=== PATIENT | female | born 1990 | race Caucasian/White ===

== ENCOUNTER 2017-11-15 10:19 | Outpatient (CLI) | payer OTHER, MEDICAID, SELFPAY ==
--- NOTE | 2017-11-15 10:58 | P.TNLD_ITS ---
Visit Information Visit Information Date of evaluation: 11/15/17 On-call OB Provider: Kelly Amanda Reason for Evaluation: Yes other Comments/Additional reasons for admission: decreased movement Evaluation Evaluation Baseline heart rate: 140 Variability: Moderate (11-25) monitor accelerations: Present monitor decelerations: Absent Diagnosis, Plan/Disposition Final Diagnosis (1) Decreased movement: Current Visit: Yes Status: Acute Plan/Disposition Plan: Reactive NST today, with 10x10 accels based on gestational age. Pt reassured. Instructed on kick counts. Pt to f/u with primary OB through [facility]. OB Disposition: home
== END 2017-11-15 11:11 | disposition home or self-care (01) ==
LOC: OB 11-16 14:13
PROVIDERS: PCP Family Medicine; Visit Provider Family Medicine
DX: O36.8130 Decreased fetal movements, third trimester, not applicable or unspecified (principal); Z3A.30 30 weeks gestation of pregnancy
CPT/HCPCS: 59025; G0378; G0379

== ENCOUNTER 2018-01-26 15:18 | Emergency (ER) | payer OTHER, MEDICAID, SELFPAY ==
[2018-01-26 15:21] VITALS: BP 137/87; PULSE 84; RESP 15; TEMP 37.3; O2SAT 98; BMI 32.5
[2018-01-26 15:49] LABS: Bacteria Urine None Seen
[2018-01-26 16:01] LABS: Culture Indicated Urine Cult Not Indicated; RBC Urine 0-1/HPF (0-5/HPF); Squamous Epithelial Cell Urine 0-1 /HPF; WBC Urine 0-1/HPF (0-5/HPF)
--- NOTE | 2018-01-26 16:49 | DI.US.S_ITS ---
PROCEDURE: US ABDOMEN LIMITED INDICATIONS: lower abd pain, concern about C section incision TECHNIQUE: Real-time focused scanning was performed of the abdomen, with image documentation. COMPARISON: [facility], CR, XR ABDOMEN 1 VIEW, 01/17/2018, 15:59. FINDINGS: Reportedly there is a painful lump at the left margin of the scar. There is a heterogeneous hypoechoic finding at this site measuring 8 x 6 x 13 mm without internal blood flow with an appearance most likely a small hematoma. Focal tenderness is identified at the right lateral margin of the scar without underlying hematoma. IMPRESSION: Small presumed hematoma measuring 8 x 6 x 13 mm at the left lateral margin of the scar. Tenderness at the right lateral margin, without focal hematoma associated. No visceral herniation into the subcutaneous fat is found. Dictated by: Tomer Gutierrez M.D. on 01/26/2018 at 18:02 Approved by: Tomer Gutierrez M.D. on 01/26/2018 at 18:04
[2018-01-26 17:14] LABS: Add Manual Diff / Slide Review NO; Basophils Percent Auto 1.1 % (0-2); Eosinophils Percent Auto 3.6 % (2-4); Hematocrit 33.1 % (36-46); Hemoglobin 11.5 g/dL (12.0-16.0); Lymphocytes Percent Auto 34.3 % (25-40); Mean Corpuscular HGB Conc 34.7 % (30-36); Mean Corpuscular Hemoglobin 31.5 PG (26-34); Mean Corpuscular Volume 90.6 fL (80-100); Monocytes Percent Auto 5.1 % (3-14); Neutrophils Absolute Auto 5000 /uL (3000-5900); Neutrophils Percent Auto 55.9 % (50-75); Platelet Count 407 X10^3/uL (150-400); Red Blood Cell Count 3.65 X10^6/uL (4.0-5.2); Red Cell Distribution Width 14.1 % (11.6-14.8)
[2018-01-26 17:25] LABS: Alanine Aminotransferase 39 IU/L (9-52); Albumin 3.8 g/dL (3.5-5.0); Albumin Globulin Ratio 1.5 (1.0-2.8); Alkaline Phosphatase 89 U/L (38-126); Aspartate Aminotransferase 35 IU/L (14-36); BUN Creatinine Ratio 16.7 (6-22); Bilirubin Total 0.2 mg/dL (0.2-1.3); Blood Urea Nitrogen 15 mg/dL (7-17); Calcium 8.9 mg/dL (8.4-10.2); Carbon Dioxide 30 mmol/L (22-32); Chloride 103 mmol/L (98-107); Estimated Glomerular Filt Rate > 60.0 mL/min (>60); Globulin 2.6 g/dL (1.7-4.1); Glucose 92 mg/dL (70-100); HEMOLYSIS < 15 (0-50); Potassium 3.8 mmol/L (3.4-5.1); Sodium 143 mmol/L (137-145); Total Protein 6.4 g/dL (6.3-8.2)
--- NOTE | 2018-01-26 17:33 | ED.FEMALEGU ---
HPI - Female Genitourinary <HARISH Zhou-BC - Last Filed: 01/26/18 22:10> General Chief complaint: Urogenital-Female Stated complaint: RED HOT SPOT S/P Time Seen by Provider: 01/26/18 16:25 Source: patient Mode of arrival: ambulatory Limitations: no limitations History of Present Illness HPI Narrative: The patient presents approximately 1 week after . She states she had an emergency at [facility]. She denies any fevers but complains of chills. She denies any nausea or vomiting. She complains of lower abdominal cramping and pain. She wanted she has a UTI given dysuria urgency frequency. She states she can feel a swollen bump at her surgery incision on her left side. She had knowledge is that she has not taken easy after surgery. She does note that she was seen at [facility]. She does state that she does not want to follow up with her OB at [facility]. She states that she did does not have any vaginal discharge but feels like the ?whole area is burning.? Patient states recent STIs testing showed nothing. Of note her baby was delivered, flown to [place] then then . Related Data Home Medications Medication Instructions Recorded Confirmed ibuprofen 1 tab PO TID PRN 01/26/18 01/26/18 oxycodone-acetaminophen 1 tab PO Q4H PRN 01/26/18 01/26/18 Allergies Allergy/AdvReac Type Severity Reaction Status Date / Time No Known Drug Allergies Allergy Verified 01/26/18 15:21 Review of Systems <SORAIDA Zhou - Last Filed: 01/26/18 22:10> Review of Systems GENERAL: Denies chills, fatigue, malaise, fever, sweats. HEENT: Denies sinus pain, ear pain, sore throat, difficulty swallowing, dizziness. RESPIRATORY: Denies dyspnea, cough, wheezing, hemoptysis, sputum. CARDIOVASCULAR: Denies chest pain, palpitations, orthopnea, edema, GASTROINTESTINAL: Denies nausea, vomiting, abdominal pain, diarrhea, constipation, melena. : See HPI MUSCULOSKELETAL: denies weakness, joint pain, or bony pain SKIN: See HPI NEUROLOGIC: Denies weakness, headache, numbness, change in speech, confusion, seizures, incoordination. PSYCHIATRIC: No concerning psychosocial issues. 12 point review of systems is negative except for those stated above Exam <SORAIDA Zhou - Last Filed: 01/26/18 22:10> Narrative Exam Narrative: GENERAL: This is a well-nourished, well-developed patient, lying on stretcher HEAD: Atraumatic. Normocephalic. No temporal or scalp tenderness. EYES: Pupils equal round and reactive. Extraocular motions intact. No scleral icterus. No injection or drainage. ENT: Nose without bleeding, purulent drainage or septal hematoma. Throat without erythema, tonsillar hypertrophy or exudate. Uvula midline. Airway patent. NECK: Trachea midline. No JVD or lymphadenopathy. Supple, nontender, no meningeal signs. CARDIOVASCULAR: Regular rate and rhythm without murmurs, gallops, or rubs. RESPIRATORY: Clear to auscultation. Breath sounds equal bilaterally. No wheezes, rales, or rhonchi. GASTROINTESTINAL: Abdomen soft, diffusely tender to palpation. Uterus palpable distal to umbilicus. Active bowel sounds all 4 quadrants. No guarding noted. No pain at McBurney's point. Palpable mass beneath left aspect of section incision. EXTREMITIES: No clubbing, cyanosis, or edema. No joint tenderness, effusion, or edema noted. BACK: Nontender without deformity or crepitance. No flank tenderness. NEURO: AOx3. SKIN: section incision is clean, dry, intact with no erythema or exudate. Incision is well approximated. Initial Vital Signs Initial Vital Signs: Vital Signs Temperature 99.2 F 01/26/18 15:21 Pulse Rate 84 01/26/18 15:21 Respiratory Rate 15 01/26/18 15:21 Blood Pressure 137/87 01/26/18 15:21 Pulse Oximetry 98 01/26/18 15:21 <Marty Tanner DO - Last Filed: 01/26/18 23:31> Initial Vital Signs Initial Vital Signs: Vital Signs Temperature 99.2 F 01/26/18 15:21 Pulse Rate 84 01/26/18 15:21 Respiratory Rate 15 01/26/18 15:21 Blood Pressure 137/87 01/26/18 15:21 Pulse Oximetry 98 01/26/18 15:21 Course <SORAIDA Zhou - Last Filed: 01/26/18 22:10> Course Narrative: I checked on the patient several times throughout her stay in the emergency department. Orders Ordered: ED Orders 01/26/18 15:26 Urine Microscopic Stat 01/26/18 16:49 US abdomen limited Stat 01/26/18 17:07 Complete Blood Count AUTO DIFF Stat Comprehensive Metabolic Panel Stat Vital Signs - 8 hr 01/26/18 18:51 Pulse Rate 78 Respiratory Rate 15 Blood Pressure 140/98 H Pulse Oximetry 98 <Marty Tanner DO - Last Filed: 01/26/18 23:31> Orders Ordered: ED Orders 01/26/18 15:26 Urine Microscopic Stat 01/26/18 16:49 US abdomen limited Stat 01/26/18 17:07 Complete Blood Count AUTO DIFF Stat Comprehensive Metabolic Panel Stat Vital Signs - 8 hr 01/26/18 18:51 Pulse Rate 78 Respiratory Rate 15 Blood Pressure 140/98 H Pulse Oximetry 98 MDM - Female Genitourinary <HARISH Zhou- - Last Filed: 01/26/18 22:10> Lab Data Attestation: I reviewed the patient's lab results. Result diagrams: 01/26/18 17:07 01/26/18 17:07 Lab Results 01/26/18 01/26/18 01/26/18 Range/Units 15:26 17:07 17:07 WBC 9.0 (4.5-11.0) X10^3/uL RBC 3.65 L (4.0-5.2) X10^6/uL Hgb 11.5 L (12.0-16.0) g/dL Hct 33.1 L (36-46) % MCV 90.6 (80-100) fL MCH 31.5 (26-34) PG MCHC 34.7 (30-36) % RDW 14.1 (11.6-14.8) % Plt Count 407 H (150-400) X10^3/uL Neut % (Auto) 55.9 (50-75) % Lymph % (Auto) 34.3 (25-40) % [place] % (Auto) 5.1 (3-14) % Eos % (Auto) 3.6 (2-4) % Baso % (Auto) 1.1 (0-2) % Neut # (Auto) 5000 (9381-1943) /uL Sodium 143 (137-145) mmol/L Potassium 3.8 (3.4-5.1) mmol/L Chloride 103 (98-107) mmol/L Carbon Dioxide 30 (22-32) mmol/L BUN 15 (7-17) mg/dL Creatinine 0.90 (0.52-1.04) mg/dL Estimated GFR > 60.0 (>60) mL/min BUN/Creatinine Ratio 16.7 (6-22) Glucose 92 (70-100) mg/dL Calcium 8.9 (8.4-10.2) mg/dL Total Bilirubin 0.2 (0.2-1.3) mg/dL AST 35 (14-36) IU/L ALT 39 (9-52) IU/L Alkaline Phosphatase 89 (38-126) U/L Total Protein 6.4 (6.3-8.2) g/dL Albumin 3.8 (3.5-5.0) g/dL Globulin 2.6 (1.7-4.1) g/dL Albumin/Globulin Ratio 1.5 (1.0-2.8) Urine RBC 0-1/hpf (0-5/HPF) Urine WBC 0-1/hpf (0-5/HPF) Ur Squamous Epith Cells 0-1 /hpf Urine Bacteria None seen (None) Ur Culture Indicated? Cult not indicated Micro UA Comment Not Reportable Urine Dip Bedside Urine Glucose Negative Bedside Urine Bilirubin - Negative Bedside Urine Ketone - Negative Urine Specific [place] 1.020 Bedside Urine Occult Blood +/- Bedside Urine pH 6.5 Bedside Urine Protein - Negative Bedside Urine Urobilinogen - Negative Bedside Urine Nitrite - Negative Bedside Urine Leukocytes - Negative Esterase Imaging Data US - abdomen: Radiologist's impression: [place] [id number] Ultrasound Report Signed Patient: Rhiannon Linton [facility]#: [id number] : 1990Acct:[id number] Age/Sex: 27 / FDate of Service: 01/26/18 Loc: ED Accession Number: [id number] Procedure: US abdomen limited Ordering Provider: Marlene Jewell-BC PROCEDURE: US ABDOMEN LIMITED INDICATIONS: lower abd pain, concern about C section incision TECHNIQUE: Real-time focused scanning was performed of the abdomen, with image documentation. COMPARISON: [facility], CR, XR ABDOMEN 1 VIEW, 01/17/2018, 15:59. FINDINGS: Reportedly there is a painful lump at the left margin of the scar. There is a heterogeneous hypoechoic finding at this site measuring 8 x 6 x 13 mm without internal blood flow with an appearance most likely a small hematoma. Focal tenderness is identified at the right lateral margin of the scar without underlying hematoma. IMPRESSION: Small presumed hematoma measuring 8 x 6 x 13 mm at the left lateral margin of the scar. Tenderness at the right lateral margin, without focal hematoma associated. No visceral herniation into the subcutaneous fat is found. Dictated by: Tomer Gutierrez M.D. on 01/26/2018 at 18:02 Approved by: Tomer Gutierrez M.D. on 01/26/2018 at 18:04 [facility] Narrative Medical decision making narrative: Patient presented for concern of wound. Her vital signs were stable, her lab work was grossly normal no elevated white blood cell count. An ultrasound did show a probable hematoma. She is hemodynamically stable and has no elevated white blood cell count. Thus I encouraged her to follow up with primary care provider and she requests to go home. I offered a pelvic an STI testing, but she declined at this point time. I encouraged her to follow up in the next few days. Patient also states she will seek help for mental health if needed given that the of her daughter. She states this is not an issue at this point time, but she agreed to be evaluated if it becomes 1. <Marty Tanner, DO - Last Filed: 01/26/18 23:31> Lab Data Lab Results 01/26/18 01/26/18 01/26/18 Range/Units 15:26 17:07 17:07 WBC 9.0 (4.5-11.0) X10^3/uL RBC 3.65 L (4.0-5.2) X10^6/uL Hgb 11.5 L (12.0-16.0) g/dL Hct 33.1 L (36-46) % MCV 90.6 (80-100) fL MCH 31.5 (26-34) PG MCHC 34.7 (30-36) % RDW 14.1 (11.6-14.8) % Plt Count 407 H (150-400) X10^3/uL Neut % (Auto) 55.9 (50-75) % Lymph % (Auto) 34.3 (25-40) % [place] % (Auto) 5.1 (3-14) % Eos % (Auto) 3.6 (2-4) % Baso % (Auto) 1.1 (0-2) % Neut # (Auto) 5000 (2383-6171) /uL Sodium 143 (137-145) mmol/L Potassium 3.8 (3.4-5.1) mmol/L Chloride 103 (98-107) mmol/L Carbon Dioxide 30 (22-32) mmol/L BUN 15 (7-17) mg/dL Creatinine 0.90 (0.52-1.04) mg/dL Estimated GFR > 60.0 (>60) mL/min BUN/Creatinine Ratio 16.7 (6-22) Glucose 92 (70-100) mg/dL Calcium 8.9 (8.4-10.2) mg/dL Total Bilirubin 0.2 (0.2-1.3) mg/dL AST 35 (14-36) IU/L ALT 39 (9-52) IU/L Alkaline Phosphatase 89 (38-126) U/L Total Protein 6.4 (6.3-8.2) g/dL Albumin 3.8 (3.5-5.0) g/dL Globulin 2.6 (1.7-4.1) g/dL Albumin/Globulin Ratio 1.5 (1.0-2.8) Urine RBC 0-1/hpf (0-5/HPF) Urine WBC 0-1/hpf (0-5/HPF) Ur Squamous Epith Cells 0-1 /hpf Urine Bacteria None seen (None) Ur Culture Indicated? Cult not indicated Micro UA Comment Not Reportable Urine Dip Bedside Urine Glucose Negative Bedside Urine Bilirubin - Negative Bedside Urine Ketone - Negative Urine Specific [place] 1.020 Bedside Urine Occult Blood +/- Bedside Urine pH 6.5 Bedside Urine Protein - Negative Bedside Urine Urobilinogen - Negative Bedside Urine Nitrite - Negative Bedside Urine Leukocytes - Negative Esterase Discharge Plan Departure Patient Disposition: Home Clinical Impression: Encounter for postoperative wound check Discharge Date/Time: 01/26/18 18:51 Interventions: ED Discharge Assessment Last Done: 01/26/18 18:51 Instructions: How to Care for a Surgical Wound Activity Restrictions/Additional Instructions: The ultrasound today showed a hematoma underneath your scar. Please follow-up with your SLIP [employer]ESSER as we discussed. Please rest, do not lift anything heavier than 5-10 lb. You can use [id number] pain medications as needed as well as ice or heat. Otherwise her lab work came back grossly normal and your urine came back without any signs of infection. Please follow-up with your tire mechanic or come back to the emergency department if needed. Prescriptions: No Action ibuprofen 800 mg tablet 1 tab PO TID PRN (Reason: PAIN) RF: 0 oxycodone-acetaminophen 5-325 mg tablet 1 tab PO Q4H PRN (Reason: PAIN) RF: 0 Referrals: Marty Aguilar MD [Primary Care Provider] - <Marty Tanner DO - Last Filed: 01/26/18 23:31> [facility] ED Attending Tati Attestation: I was available for consultation during this patient's emergency department encounter
--- NOTE | 2018-01-26 17:36 | ED_ITS ---
HPI - Female Genitourinary <HARISH Zhou-BC - Last Filed: 01/26/18 22:10> General Chief complaint: Urogenital-Female Stated complaint: RED HOT SPOT S/P Time Seen by Provider: 01/26/18 16:25 Source: patient Mode of arrival: ambulatory Limitations: no limitations History of Present Illness HPI Narrative: The patient presents approximately 1 week after . She states she had an emergency at [facility]. She denies any fevers but complains of chills. She denies any nausea or vomiting. She complains of lower abdominal cramping and pain. She wanted she has a UTI given dysuria urgency frequency. She states she can feel a swollen bump at her surgery incision on her left side. She had knowledge is that she has not taken easy after surgery. She does note that she was seen at [facility]. She does state that she does not want to follow up with her OB at [facility]. She states that she did does not have any vaginal discharge but feels like the ?whole area is burning.? Patient states recent STIs testing showed nothing. Of note her baby was delivered, flown to [place] then then . Related Data Home Medications Medication Instructions Recorded Confirmed ibuprofen 1 tab PO TID PRN 01/26/18 01/26/18 oxycodone-acetaminophen 1 tab PO Q4H PRN 01/26/18 01/26/18 Allergies Allergy/AdvReac Type Severity Reaction Status Date / Time No Known Drug Allergies Allergy Verified 01/26/18 15:21 Review of Systems <SORAIDA Zhou - Last Filed: 01/26/18 22:10> Review of Systems GENERAL: Denies chills, fatigue, malaise, fever, sweats. HEENT: Denies sinus pain, ear pain, sore throat, difficulty swallowing, dizziness. RESPIRATORY: Denies dyspnea, cough, wheezing, hemoptysis, sputum. CARDIOVASCULAR: Denies chest pain, palpitations, orthopnea, edema, GASTROINTESTINAL: Denies nausea, vomiting, abdominal pain, diarrhea, constipation, melena. : See HPI MUSCULOSKELETAL: denies weakness, joint pain, or bony pain SKIN: See HPI NEUROLOGIC: Denies weakness, headache, numbness, change in speech, confusion, seizures, incoordination. PSYCHIATRIC: No concerning psychosocial issues. 12 point review of systems is negative except for those stated above Exam <SORAIDA Zhou - Last Filed: 01/26/18 22:10> Narrative Exam Narrative: GENERAL: This is a well-nourished, well-developed patient, lying on stretcher HEAD: Atraumatic. Normocephalic. No temporal or scalp tenderness. EYES: Pupils equal round and reactive. Extraocular motions intact. No scleral icterus. No injection or drainage. ENT: Nose without bleeding, purulent drainage or septal hematoma. Throat without erythema, tonsillar hypertrophy or exudate. Uvula midline. Airway patent. NECK: Trachea midline. No JVD or lymphadenopathy. Supple, nontender, no meningeal signs. CARDIOVASCULAR: Regular rate and rhythm without murmurs, gallops, or rubs. RESPIRATORY: Clear to auscultation. Breath sounds equal bilaterally. No wheezes , rales, or rhonchi. GASTROINTESTINAL: Abdomen soft, diffusely tender to palpation. Uterus palpable distal to umbilicus. Active bowel sounds all 4 quadrants. No guarding noted. No pain at McBurney's point. Palpable mass beneath left aspect of section incision. EXTREMITIES: No clubbing, cyanosis, or edema. No joint tenderness, effusion, or edema noted. BACK: Nontender without deformity or crepitance. No flank tenderness. NEURO: AOx3. SKIN: section incision is clean, dry, intact with no erythema or exudate. Incision is well approximated. Initial Vital Signs Initial Vital Signs: Vital Signs Temperature 99.2 F 01/26/18 15:21 Pulse Rate 84 01/26/18 15:21 Respiratory Rate 15 01/26/18 15:21 Blood Pressure 137/87 01/26/18 15:21 Pulse Oximetry 98 01/26/18 15:21 <Marty Tanner DO - Last Filed: 01/26/18 23:31> Initial Vital Signs Initial Vital Signs: Vital Signs Temperature 99.2 F 01/26/18 15:21 Pulse Rate 84 01/26/18 15:21 Respiratory Rate 15 01/26/18 15:21 Blood Pressure 137/87 01/26/18 15:21 Pulse Oximetry 98 01/26/18 15:21 Course <SORAIDA Zhou - Last Filed: 01/26/18 22:10> Course Narrative: I checked on the patient several times throughout her stay in the emergency department. Orders Ordered: ED Orders 01/26/18 15:26 Urine Microscopic Stat 01/26/18 16:49 US abdomen limited Stat 01/26/18 17:07 Complete Blood Count AUTO DIFF Stat Comprehensive Metabolic Panel Stat Vital Signs - 8 hr 01/26/18 18:51 Pulse Rate 78 Respiratory Rate 15 Blood Pressure 140/98 H Pulse Oximetry 98 <Marty Tanner DO - Last Filed: 01/26/18 23:31> Orders Ordered: ED Orders 01/26/18 15:26 Urine Microscopic Stat 01/26/18 16:49 US abdomen limited Stat 01/26/18 17:07 Complete Blood Count AUTO DIFF Stat Comprehensive Metabolic Panel Stat Vital Signs - 8 hr 01/26/18 18:51 Pulse Rate 78 Respiratory Rate 15 Blood Pressure 140/98 H Pulse Oximetry 98 MDM - Female Genitourinary <HARISH Zhou- - Last Filed: 01/26/18 22:10> Lab Data Attestation: I reviewed the patient's lab results. Result diagrams: 01/26/18 17:07 01/26/18 17:07 Lab Results 01/26/18 01/26/18 01/26/18 Range/Units 15:26 17:07 17:07 WBC 9.0 (4.5-11.0) X10^3/uL RBC 3.65 L (4.0-5.2) X10^6/uL Hgb 11.5 L (12.0-16.0) g/dL Hct 33.1 L (36-46) % MCV 90.6 (80-100) fL MCH 31.5 (26-34) PG MCHC 34.7 (30-36) % RDW 14.1 (11.6-14.8) % Plt Count 407 H (150-400) X10^3/uL Neut % (Auto) 55.9 (50-75) % Lymph % (Auto) 34.3 (25-40) % [place]yer % (Auto) 5.1 (3-14) % Eos % (Auto) 3.6 (2-4) % Baso % (Auto) 1.1 (0-2) % Neut # (Auto) 5000 (2663-3266) /uL Sodium 143 (137-145) mmol/L Potassium 3.8 (3.4-5.1) mmol/L Chloride 103 (98-107) mmol/L Carbon Dioxide 30 (22-32) mmol/L BUN 15 (7-17) mg/dL Creatinine 0.90 (0.52-1.04) mg/dL Estimated GFR > 60.0 (>60) mL/min BUN/Creatinine Ratio 16.7 (6-22) Glucose 92 (70-100) mg/dL Calcium 8.9 (8.4-10.2) mg/dL Total Bilirubin 0.2 (0.2-1.3) mg/dL AST 35 (14-36) IU/L ALT 39 (9-52) IU/L Alkaline Phosphatase 89 (38-126) U/L Total Protein 6.4 (6.3-8.2) g/dL Albumin 3.8 (3.5-5.0) g/dL Globulin 2.6 (1.7-4.1) g/dL Albumin/Globulin Ratio 1.5 (1.0-2.8) Urine RBC 0-1/hpf (0-5/HPF) Urine WBC 0-1/hpf (0-5/HPF) Ur Squamous Epith Cells 0-1 /hpf Urine Bacteria None seen (None) Ur Culture Indicated? Cult not indicated Micro UA Comment Not Reportable Urine Dip Bedside Urine Glucose Negative Bedside Urine Bilirubin - Negative Bedside Urine Ketone - Negative Urine Specific [place] 1.020 Bedside Urine Occult Blood +/- Bedside Urine pH 6.5 Bedside Urine Protein - Negative Bedside Urine Urobilinogen - Negative Bedside Urine Nitrite - Negative Bedside Urine Leukocytes - Negative Esterase Imaging Data US - abdomen: Radiologist's impression: [place] [id number] Ultrasound Report Signed Patient: Rhiannon Linton [facility]#: [id number] : 1990Acct:[id number] Age/Sex: 27 / FDate of Service: 01/26/18 Loc: ED Accession Number: [id number] Procedure: US abdomen limited Ordering Provider: Marlene Jewell-BC PROCEDURE: US ABDOMEN LIMITED INDICATIONS: lower abd pain, concern about C section incision TECHNIQUE: Real-time focused scanning was performed of the abdomen, with image documentation. COMPARISON: [facility], CR, XR ABDOMEN 1 VIEW, 01/17/2018, 15:59. FINDINGS: Reportedly there is a painful lump at the left margin of the C- section scar. There is a heterogeneous hypoechoic finding at this site measuring 8 x 6 x 13 mm without internal blood flow with an appearance most likely a small hematoma. Focal tenderness is identified at the right lateral margin of the scar without underlying hematoma. IMPRESSION: Small presumed hematoma measuring 8 x 6 x 13 mm at the left lateral margin of the scar. Tenderness at the right lateral margin, without focal hematoma associated. No visceral herniation into the subcutaneous fat is found. Dictated by: Tomer Gutierrez M.D. on 01/26/2018 at 18:02 Approved by: Tomer Gutiererz M.D. on 01/26/2018 at 18:04 [facility] Narrative Medical decision making narrative: Patient presented for concern of wound. Her vital signs were stable, her lab work was grossly normal no elevated white blood cell count. An ultrasound did show a probable hematoma. She is hemodynamically stable and has no elevated white blood cell count. Thus I encouraged her to follow up with primary care provider and she requests to go home. I offered a pelvic an STI testing, but she declined at this point time. I encouraged her to follow up in the next few days. Patient also states she will seek help for mental health if needed given that the of her daughter. She states this is not an issue at this point time, but she agreed to be evaluated if it becomes 1. <Marty Tanner, DO - Last Filed: 01/26/18 23:31> Lab Data Lab Results 01/26/18 01/26/18 01/26/18 Range/Units 15:26 17:07 17:07 WBC 9.0 (4.5-11.0) X10^3/uL RBC 3.65 L (4.0-5.2) X10^6/uL Hgb 11.5 L (12.0-16.0) g/dL Hct 33.1 L (36-46) % MCV 90.6 (80-100) fL MCH 31.5 (26-34) PG MCHC 34.7 (30-36) % RDW 14.1 (11.6-14.8) % Plt Count 407 H (150-400) X10^3/uL Neut % (Auto) 55.9 (50-75) % Lymph % (Auto) 34.3 (25-40) % Dyer % (Auto) 5.1 (3-14) % Eos % (Auto) 3.6 (2-4) % Baso % (Auto) 1.1 (0-2) % Neut # (Auto) 5000 (8991-4646) /uL Sodium 143 (137-145) mmol/L Potassium 3.8 (3.4-5.1) mmol/L Chloride 103 (98-107) mmol/L Carbon Dioxide 30 (22-32) mmol/L BUN 15 (7-17) mg/dL Creatinine 0.90 (0.52-1.04) mg/dL Estimated GFR > 60.0 (>60) mL/min BUN/Creatinine Ratio 16.7 (6-22) Glucose 92 (70-100) mg/dL Calcium 8.9 (8.4-10.2) mg/dL Total Bilirubin 0.2 (0.2-1.3) mg/dL AST 35 (14-36) IU/L ALT 39 (9-52) IU/L Alkaline Phosphatase 89 (38-126) U/L Total Protein 6.4 (6.3-8.2) g/dL Albumin 3.8 (3.5-5.0) g/dL Globulin 2.6 (1.7-4.1) g/dL Albumin/Globulin Ratio 1.5 (1.0-2.8) Urine RBC 0-1/hpf (0-5/HPF) Urine WBC 0-1/hpf (0-5/HPF) Ur Squamous Epith Cells 0-1 /hpf Urine Bacteria None seen (None) Ur Culture Indicated? Cult not indicated Micro UA Comment Not Reportable Urine Dip Bedside Urine Glucose Negative Bedside Urine Bilirubin - Negative Bedside Urine Ketone - Negative Urine Specific [place] 1.020 Bedside Urine Occult Blood +/- Bedside Urine pH 6.5 Bedside Urine Protein - Negative Bedside Urine Urobilinogen - Negative Bedside Urine Nitrite - Negative Bedside Urine Leukocytes - Negative Esterase Discharge Plan Departure Patient Disposition: Home Clinical Impression: Encounter for postoperative wound check Discharge Date/Time: 01/26/18 18:51 Interventions: ED Discharge Assessment Last Done: 01/26/18 18:51 Instructions: How to Care for a Surgical Wound Activity Restrictions/Additional Instructions: The ultrasound today showed a hematoma underneath your scar. Please follow-up with your [employer] [employer] as we discussed. Please rest, do not lift anything heavier than 5-10 lb. You can use [id number] pain medications as needed as well as ice or heat. Otherwise her lab work came back grossly normal and your urine came back without any signs of infection. Please follow-up with your senior bookkeeper or come back to the emergency department if needed. Prescriptions: No Action ibuprofen 800 mg tablet 1 tab PO TID PRN (Reason: PAIN) RF: 0 oxycodone-acetaminophen 5-325 mg tablet 1 tab PO Q4H PRN (Reason: PAIN) RF: 0 Referrals: Marty Aguilar MD [Primary Care Provider] - <Marty Tanner DO - Last Filed: 01/26/18 23:31> [facility] ED Attending Tati Attestation: I was available for consultation during this patient's emergency department encounter
[2018-01-26 18:51] VITALS: BP 140/98; PULSE 78; RESP 15; O2SAT 98
== END 2018-01-26 18:51 | disposition home or self-care (01) ==
PROVIDERS: Emergency Provider Nurse Practitioner Family; Family Provider Family Medicine; PCP Family Medicine
DX: R10.9 Unspecified abdominal pain (principal); Z48.89 Encounter for other specified surgical aftercare; Z98.890 Other specified postprocedural states
CPT/HCPCS: 36415; 76705; 80053; 81003; 81015; 85025; 99282; 99284

== ENCOUNTER 2018-06-19 09:38 | Emergency (ER) | payer OTHER, MEDICAID, SELFPAY ==
[2018-06-19 09:39] VITALS: BP 134/91; PULSE 83; RESP 14; TEMP 36.6; O2SAT 100
--- NOTE | 2018-06-19 09:44 | DI.RAD.S_ITS ---
PROCEDURE: XR WRIST RT MIN 3V INDICATIONS: fall on tuesday, pain, amanda w/ movement of thumb TECHNIQUE: 4 views of the wrist were acquired. COMPARISON: None. FINDINGS: Bones: No fractures or dislocations. No suspicious bony lesions. Scaphoid view: No navicular fractures are seen. Soft tissues: No suspicious soft tissue calcifications. IMPRESSION: No displaced fractures are seen. If there is snuffbox tenderness (or other clinical suspicion for a fracture not seen on these images) then a repeat examination would be recommended in 10 to 14 days, following splinting. Dictated by: Osvaldo Serrato M.D. on 06/19/2018 at 9:05 Approved by: Osvaldo Serrato M.D. on 06/19/2018 at 9:06
[2018-06-19 09:46] VITALS: PULSE 90
--- NOTE | 2018-06-19 10:19 | ED.UPPEXIN ---
HPI - Extremity Injury (Upper) General Chief Complaint: Extremity Injury, Upper Stated Complaint: FELL AND LANDED ON R WRIST Time Seen by Provider: 06/19/18 10:06 Source: patient Mode of arrival: ambulatory Limitations: no limitations History of Present Illness HPI narrative: patient is a 27-year-old female who presents with right wrist pain. She tripped and fell 3 days ago landing on a folding metal chair. She says the bruising has gotten worse over the last couple of days and she has extreme pain when she tries to grab something. She mostly has pain at the base of her thumb. She has some numbness tingling but is able to make a fist. MD complaint: injury to: right and wrist Onset (ago): day(s) (3) Related Data Home Medications Medication Instructions Recorded Confirmed No Known Home Medications 04/10/18 06/19/18 Allergies Allergy/AdvReac Type Severity Reaction Status Date / Time latex Allergy Mild rash Verified 06/19/18 09:43 Review of Systems Review of Systems GENERAL: Denies chills,fever HEENT: Denies throat pain RESPIRATORY: Denies dyspnea, cough, wheezing CARDIOVASCULAR: Denies chest pain, palpitations GASTROINTESTINAL: Denies nausea, vomiting MUSCULOSKELETAL: See HPI SKIN: No rash, no laceration, no pruritus NEUROLOGIC: Denies weakness, dizziness, headache, numbness 8 point review of systems is negative except for those stated above and HPI [facility] Medical History Patient denies significant medical history (Acute) Social History Smoking Status: Never smoker Social History Smoking Status: Never smoker Exam Initial Vital Signs Initial Vital Signs: Vital Signs Temperature 97.8 F 06/19/18 09:39 Pulse Rate 83 06/19/18 09:39 Respiratory Rate 14 06/19/18 09:39 Blood Pressure 134/91 H 06/19/18 09:39 Pulse Oximetry 100 06/19/18 09:39 GENERAL: Well-appearing, well-nourished and in no acute distress. CARDIOVASCULAR: peripheral pulses in tact, cap refill <2 sec RESPIRATORY: No respiratory distress, speaks in full sentences without difficulty EXTREMITIES: Normal range of motion, no clubbing or edema. Neurovascularly intact right upper extremity is some mild contusion on right wrist. His pain on snuffbox with some resistance. She is able to make a fist and move fingers although it is weaker than the left hand. Pain with flexion extension of the wrist. It is elbow and shoulder within normal limits. NEUROLOGICAL: Cranial nerves II through XII grossly intact. Normal gait and speech. SKIN: Warm, dry, no petechiae, no rashes or lesions. Course Orders Ordered: ED Orders 06/19/18 09:44 XR wrist RT min 3V Stat Vital Signs - 8 hr 06/19/18 09:39 06/19/18 09:46 Temperature 97.8 F Pulse Rate 83 Pulse Rate [Right Radial] 90 Respiratory Rate 14 Blood Pressure 134/91 H Pulse Oximetry [address] [facility] - Extremity Injury (Upper) Imaging Data right wrist xr: Radiologist's impression: PROCEDURE: XR WRIST RT MIN 3V INDICATIONS: fall on tuesday, pain, amanda w/ movement of thumb TECHNIQUE: 4 views of the wrist were acquired. COMPARISON: None. FINDINGS: Bones: No fractures or dislocations. No suspicious bony lesions. Scaphoid view: No navicular fractures are seen. Soft tissues: No suspicious soft tissue calcifications. IMPRESSION: No displaced fractures are seen. If there is snuffbox tenderness (or other clinical suspicion for a fracture not seen on these images) then a repeat examination would be recommended in 10 to 14 days, following splinting. Dictated by: Osvaldo Serrato M.D. on 06/19/2018 at 9:05 MDM Narrative Medical decision making narrative: Patient placed in a right Velcro splint. She is tender on along the snuffbox. Strongly recommended keeping the splint on and treating as fracture. Discharge Plan Departure Patient Disposition: Home Clinical Impression: Right wrist sprain Qualifiers: Encounter type: initial encounter Qualified Code(s): S63.501A - Unspecified sprain of right wrist, initial encounter Discharge Date/Time: 06/19/18 10:37 Interventions: ED Discharge Assessment Last Done: 06/19/18 10:36 Instructions: DI for Wrist Sprain Activity Restrictions/Additional Instructions: *You have been diagnosed with Right wrist sprain *What to do: there is a possibility you may have a hairline fracture that we do not see on x-ray at this time. If her still having significant pain at base of thumb recommending repeat x-ray in about 14 days with her primary care doctor. Until then please were splint is at all times. *Continue to take medications as directed Tylenol 650 mg every 4-6 hours if needed for pain Motrin 600 mg every 6-8 hours of pain pain *Follow up with your primary care provider in 2-3 days *Return to ER if you should have increasing pain and weakness or any new, worsening or concerning symptoms Prescriptions: No Action No Known Home Medications RF: 0 Referrals: Marty Aguilar MD [Primary Care Provider] -
[2018-06-19 10:35] VITALS: BP 122/72; PULSE 72; RESP 14; O2SAT 99
== END 2018-06-19 10:37 | disposition home or self-care (01) ==
PROVIDERS: Emergency Provider Emergency Medicine; Family Provider Family Medicine; PCP Family Medicine
DX: S63.501A Unspecified sprain of right wrist, initial encounter (principal); W01.0XXA Fall on same level from slipping, tripping and stumbling without subsequent striking against object, initial encounter
CPT/HCPCS: 29260; 73110; 99282; 99283

== ENCOUNTER 2018-08-07 08:27 | Emergency (ER) | payer OTHER, MEDICAID, SELFPAY ==
[2018-08-07 08:34] VITALS: BP 120/73; PULSE 75; RESP 20; TEMP 36.1; O2SAT 99; BMI 33.5
--- NOTE | 2018-08-07 08:37 | DI.RAD.S_ITS ---
PROCEDURE: XR WRIST RT MIN 3V INDICATIONS: fall, injury, pain TECHNIQUE: 4 views of the wrist were acquired. COMPARISON: [facility], CR, XR WRIST RT MIN 3V, 06/19/2018, 9:42. FINDINGS: Bones: No acute fractures or dislocations. No suspicious bony lesions. Linear lucencies projecting over the fourth and fifth proximal phalanxes on the oblique view are similar in appearance to comparison exam of 06/19/18 and are consistent with overlying skin folds. There is unchanged mild cortical deformity of the distal fifth metacarpal, consistent with an old healed chronic fracture. Scaphoid view: Scaphoid appears intact. Soft tissues: No suspicious soft tissue calcifications. IMPRESSION: No convincing acute fracture or dislocation of the right wrist. Consider followup radiographs in 7-10 days if there is continued clinical concern. Dictated by: Anshu Hill M.D. on 08/07/2018 at 9:06 Approved by: Anshu Hill M.D. on 08/07/2018 at 9:21
--- NOTE | 2018-08-07 10:17 | ED.UPPEXIN ---
HPI - Extremity Injury (Upper) General Chief Complaint: Extremity Injury, Upper Stated Complaint: States re broke wrist Time Seen by Provider: 08/07/18 10:13 Source: patient Mode of arrival: ambulatory Limitations: no limitations History of Present Illness HPI narrative: 27-year-old female comes to the emergency department with complaint of right wrist pain. Patient states she thinks she may have a fracture. Patient states that she was gardening yesterday when she tripped and fell pushing her hand into a wooden raised garden bed. Patient states that she has pain with movement of her thumb and wrist. It is over the radius or wrist area. She states that sensation seemed a little decreased in the thumb. She denies any new weakness otherwise. She denies any other injuries. Patient states she has an old wrist fracture, she states she was splinted followed up their primary care but does not sound like she for a cast or had any prolonged treatment. There is an old x-ray that is read as negative. today's x-ray shows possible old chronic healed fracture over the left metacarpal but she states that was not where her pain was. It was over the distal radius. Related Data Home Medications Medication Instructions Recorded Confirmed albuterol sulfate [ProAir HFA] 1 puff INHALATION PRN PRN 08/07/18 08/07/18 budesonide-formoterol [Symbicort] 1 puff INHALATION DIRECTED 08/07/18 meclizine 08/07/18 Allergies Allergy/AdvReac Type Severity Reaction Status Date / Time latex Allergy Mild rash Verified 07/07/18 10:11 Review of Systems Musculoskeletal Reports as per HPI, Reports arthralgias (Right wrist), Reports limited range of motion, Denies muscle weakness, Reports numbness (Decreased sensation) and Denies tingling Integumentary/Breasts Denies erythema, Denies unusual bruising and Denies wounds Neurologic Reports numbness (Decreased sensation) and Denies tingling [facility] Medical History Patient denies significant medical history (Acute) Social History Smoking Status: Never smoker Social History Smoking Status: Never smoker Exam Narrative Exam Narrative: GENERAL: Alert and oriented x three, well-nourished, well-appearing female in mild distress. HEENT: Head normocephalic, atraumatic, EOMI, pupils reactive, face symmetric, moist mucous membranes NECK: Supple, full range of motion EXTREMITIES: Normal range of motion, no clubbing or edema. Neurovascularly intact. 2+ radial pulse on the right. Cap refills less than 2 seconds in all 5 fingers. Patient has tenderness over the distal radius, she does have rotation as well as extends and flexion although slightly decreased. She also has full movement of the thumb. She states that there is some decreased sensation in the thumb but she does have sensation to light touch. No bruising, no swelling noted. NEUROLOGICAL: Cranial nerves II through XII grossly intact. Moving all extremities SKIN: Warm, dry, no petechiae, no rashes or lesions. Initial Vital Signs Initial Vital Signs: Vital Signs Temperature 97.0 F L 08/07/18 08:34 Pulse Rate 75 08/07/18 08:34 Respiratory Rate 20 08/07/18 08:34 Blood Pressure 120/73 08/07/18 08:34 Pulse Oximetry 99 08/07/18 08:34 Course Orders Ordered: ED Orders 08/07/18 08:37 XR wrist RT min 3V Stat Vital Signs - 8 hr 08/07/18 08:34 Temperature 97.0 F L Pulse Rate 75 Respiratory Rate 20 Blood Pressure 120/73 Pulse Oximetry 99 MDM - Extremity Injury (Upper) Imaging Data right wrist xray: Radiologist's impression: Chart Viewer Diagnostics DATE TYPE STATUS AUTHOR Hx 08/07/18 08:37 Anshu Hill 06/19/18 09:44 Osvaldo Serrato 06/01/18 13:49 [facility], Pelvic US 05/25/18 13:48 [facility], Pelvic US 01/26/18 16:49 Tomer Gutierrez Alisha C 27, F1990 REG ER, ED.LOC - Main ED: R11 162.56cm 88.451kg BMI: 33.5kg/m? Extremity Injury, Upper Search Chart rash ONSET Today 08:34 Rhiannon Linton 27 F [address] [address] XRay Report Signed Patient: Rhiannon Linton [facility]#: [id number] : 1990Acct:[id number] Age/Sex: 27 / FDate of Service: 08/07/18 Loc: ED Accession Number: [id number] Procedure: XR wrist RT min 3V Ordering Provider: Marlene Gomes D.O. PROCEDURE: XR WRIST RT MIN 3V INDICATIONS: fall, injury, pain TECHNIQUE: 4 views of the wrist were acquired. COMPARISON: [facility], , XR WRIST RT MIN 3V, 06/19/2018, 9:42. FINDINGS: Bones: No acute fractures or dislocations. No suspicious bony lesions. Linear lucencies projecting over the fourth and fifth proximal phalanxes on the oblique view are similar in appearance to comparison exam of 06/19/18 and are consistent with overlying skin folds. There is unchanged mild cortical deformity of the distal fifth metacarpal, consistent with an old healed chronic fracture. Scaphoid view: Scaphoid appears intact. Soft tissues: No suspicious soft tissue calcifications. IMPRESSION: No convincing acute fracture or dislocation of the right wrist. Consider followup radiographs in 7-10 days if there is continued clinical concern. Dictated by: Anshu Hill M.D. on 08/07/2018 at 9:06 Approved by: Anshu Hill M.D. on 08/07/2018 at 9:21 Discharge Plan Departure Patient Disposition: Home Clinical Impression: Right wrist sprain Discharge Date/Time: 08/07/18 10:37 Interventions: ED Discharge Assessment Last Done: 08/07/18 10:35 Instructions: DI for Wrist Sprain Activity Restrictions/Additional Instructions: With her primary care in the next 7-10 days if her symptoms are not improving for repeat imaging. Your x-ray today does not show any new fractures. There is some change in the 5th metacarpal consistent with an old healed fracture. You m may take ibuprofen up to 800 mg every 8 hours as needed. You may use splint if you are having continued symptoms. If your symptoms are resolved you do not need to use the splint. Splint Care: Keep splint clean and dry. Elevated affected body part to decrease swelling. OK to use ice pack on the affected body part. Use for 15-20 minutes each time, for 5-6x per day. If you develop worsening pain, numbness, tingling, discoloration of the affected body part, loosen the splint by loosening the SHAHANA wrap, and either see your doctor for an urgent re-assessment, or return to the Emergency Department. Return to the Emergency Department for any new or worsening symptoms. Prescriptions: No Action meclizine 25 mg tablet RF: 0 albuterol sulfate [ProAir HFA] 90 mcg/actuation HFA aerosol inhaler 1 puff Inhalation PRN PRN (Reason: Shortness Of Breath) RF: 0 Symbicort 160-4.5 mcg/actuation HFA aerosol inhaler 1 puff Inhalation DIRECTED RF: 0 Referrals: Davon Joseph [Primary Care Provider] -
--- NOTE | 2018-08-07 10:29 | ED_ITS ---
HPI - Extremity Injury (Upper) General Chief Complaint: Extremity Injury, Upper Stated Complaint: States re broke wrist Time Seen by Provider: 08/07/18 10:13 Source: patient Mode of arrival: ambulatory Limitations: no limitations History of Present Illness HPI narrative: 27-year-old female comes to the emergency department with complaint of right wrist pain. Patient states she thinks she may have a fracture. Patient states that she was gardening yesterday when she tripped and fell pushing her hand into a wooden raised garden bed. Patient states that she has pain with movement of her thumb and wrist. It is over the radius or wrist area. She states that sensation seemed a little decreased in the thumb. She denies any new weakness otherwise. She denies any other injuries. Patient states she has an old wrist fracture, she states she was splinted followed up their primary care but does not sound like she for a cast or had any prolonged treatment. There is an old x-ray that is read as negative. today's x-ray shows possible old chronic healed fracture over the left metacarpal but she states that was not where her pain was. It was over the distal radius. Related Data Home Medications Medication Instructions Recorded Confirmed albuterol sulfate [ProAir HFA] 1 puff INHALATION PRN PRN 08/07/18 08/07/18 budesonide-formoterol [Symbicort] 1 puff INHALATION DIRECTED 08/07/18 meclizine 08/07/18 Allergies Allergy/AdvReac Type Severity Reaction Status Date / Time latex Allergy Mild rash Verified 07/07/18 10:11 Review of Systems Musculoskeletal Reports as per HPI, Reports arthralgias (Right wrist), Reports limited range of motion, Denies muscle weakness, Reports numbness (Decreased sensation) and Denies tingling Integumentary/Breasts Denies erythema, Denies unusual bruising and Denies wounds Neurologic Reports numbness (Decreased sensation) and Denies tingling COUNTS INCLUDE 234 BEDS AT THE [facility] Medical History Patient denies significant medical history (Acute) Social History Smoking Status: Never smoker Social History Smoking Status: Never smoker Exam Narrative Exam Narrative: GENERAL: Alert and oriented x three, well-nourished, well- appearing female in mild distress. HEENT: Head normocephalic, atraumatic, EOMI, pupils reactive, face symmetric, moist mucous membranes NECK: Supple, full range of motion EXTREMITIES: Normal range of motion, no clubbing or edema. Neurovascularly intact. 2+ radial pulse on the right. Cap refills less than 2 seconds in all 5 fingers. Patient has tenderness over the distal radius, she does have rotation as well as extends and flexion although slightly decreased. She also has full movement of the thumb. She states that there is some decreased sensation in the thumb but she does have sensation to light touch. No bruising, no swelling noted. NEUROLOGICAL: Cranial nerves II through XII grossly intact. Moving all extremities SKIN: Warm, dry, no petechiae, no rashes or lesions. Initial Vital Signs Initial Vital Signs: Vital Signs Temperature 97.0 F L 08/07/18 08:34 Pulse Rate 75 08/07/18 08:34 Respiratory Rate 20 08/07/18 08:34 Blood Pressure 120/73 08/07/18 08:34 Pulse Oximetry 99 08/07/18 08:34 Course Orders Ordered: ED Orders 08/07/18 08:37 XR wrist RT min 3V Stat Vital Signs - 8 hr 08/07/18 08:34 Temperature 97.0 F L Pulse Rate 75 Respiratory Rate 20 Blood Pressure 120/73 Pulse Oximetry 99 MDM - Extremity Injury (Upper) Imaging Data right wrist xray: Radiologist's impression: Chart Viewer Diagnostics DATE TYPE STATUS AUTHOR Hx 08/07/18 08:37 Anshu Hill 06/19/18 09:44 Osvaldo Serrato 06/01/18 13:49 [facility], Pelvic US 05/25/18 13:48 [facility], Pelvic US 01/26/18 16:49 Tomer Gutierrez Alisha C 27, F1990 REG ER, ED.LOC - Main ED: R11 162.56cm 88.451kg BMI: 33.5kg/m? Extremity Injury, Upper Search Chart rash ONSET Today 08:34 Rhiannon Linton 27 F [address] [address] XRay Report Signed Patient: Rhiannon Linton [facility]#: [id number] : 1990Acct:[id number] Age/Sex: 27 / FDate of Service: 08/07/18 Loc: ED Accession Number: [id number] Procedure: XR wrist RT min 3V Ordering Provider: Marlene Gomes D.O. PROCEDURE: XR WRIST RT MIN 3V INDICATIONS: fall, injury, pain TECHNIQUE: 4 views of the wrist were acquired. COMPARISON: [facility], , XR WRIST RT MIN 3V, 06/19/2018, 9:42. FINDINGS: Bones: No acute fractures or dislocations. No suspicious bony lesions. Linear lucencies projecting over the fourth and fifth proximal phalanxes on the oblique view are similar in appearance to comparison exam of 06/19/18 and are consistent with overlying skin folds. There is unchanged mild cortical deformity of the distal fifth metacarpal, consistent with an old healed chronic fracture. Scaphoid view: Scaphoid appears intact. Soft tissues: No suspicious soft tissue calcifications. IMPRESSION: No convincing acute fracture or dislocation of the right wrist. Consider followup radiographs in 7-10 days if there is continued clinical concern. Dictated by: Anshu Hill M.D. on 08/07/2018 at 9:06 Approved by: Anshu Hill M.D. on 08/07/2018 at 9:21 Discharge Plan Departure Patient Disposition: Home Clinical Impression: Right wrist sprain Discharge Date/Time: 08/07/18 10:37 Interventions: ED Discharge Assessment Last Done: 08/07/18 10:35 Instructions: DI for Wrist Sprain Activity Restrictions/Additional Instructions: With her primary care in the next 7-10 days if her symptoms are not improving for repeat imaging. Your x-ray today does not show any new fractures. There is some change in the 5th metacarpal consistent with an old healed fracture. You m may take ibuprofen up to 800 mg every 8 hours as needed. You may use splint if you are having continued symptoms. If your symptoms are resolved you do not need to use the splint. Splint Care: Keep splint clean and dry. Elevated affected body part to decrease swelling. OK to use ice pack on the affected body part. Use for 15-20 minutes each time, for 5-6x per day. If you develop worsening pain, numbness, tingling, discoloration of the affected body part, loosen the splint by loosening the SHAHANA wrap, and either see your doctor for an urgent re-assessment, or return to the Emergency Department. Return to the Emergency Department for any new or worsening symptoms. Prescriptions: No Action meclizine 25 mg tablet RF: 0 albuterol sulfate [ProAir HFA] 90 mcg/actuation HFA aerosol inhaler 1 puff Inhalation PRN PRN (Reason: Shortness Of Breath) RF: 0 Symbicort 160-4.5 mcg/actuation HFA aerosol inhaler 1 puff Inhalation DIRECTED RF: 0 Referrals: Davon Joseph [Primary Care Provider] -
[2018-08-07 10:35] VITALS: BP 117/74; PULSE 74; RESP 20; O2SAT 94
== END 2018-08-07 10:37 | disposition home or self-care (01) ==
PROVIDERS: Emergency Provider Emergency Medicine; PCP Physician Assistant Medical
DX: S63.501A Unspecified sprain of right wrist, initial encounter (principal); W19.XXXA Unspecified fall, initial encounter
CPT/HCPCS: 29280; 73110; 99282; 99283

== ENCOUNTER 2019-01-05 13:31 | Outpatient (RCR) | payer OTHER, MEDICAID, SELFPAY ==
--- NOTE | 2019-01-05 16:55 | PT.OIE ---
Current Diagnoses Dizziness and giddiness (01/05/19) Past Medical History (Last Reviewed 12/19/18 @ 12:07 by Nury Sotomayor DO) Patient denies significant medical history (Acute) Visit Care Team Role Provider Type Nury Sotomayor DO Attending Provider Physician Primary Care Provider Specialty: Family Practice Address: [address] [place] [address], [facility] [address], [address] Email: [email or web address] Physical Therapy Initial Evaluation PT-OP-A Visit Information Start: 01/05/19 14:49 Freq: Status: Active Protocol: Document 01/05/19 13:45 DCW (Rec: 01/05/19 16:55 DCW [id number]) Out-Patient Physical Therapy Visit Information Visit Information Visit Type Initial Evaluation Visit Start Time 13:45 Visit Stop Time 14:30 Total Visit Minutes 45 Visit Number 1 Number of AUTO BODY WORKER Visits 0 Evaluation Information Evaluation Date 01/05/19 PT-OP-B Current Condition Start: 01/05/19 14:49 Freq: Status: Active Protocol: Document 01/05/19 13:45 DCW (Rec: 01/05/19 16:55 DCW [id number]) Current Condition History of Current Condition Onset Date 1 year Current Complaints Imbalance, unusual sensation of movement History of Current Condition Pt is a 28 year old female complaining of a one year history of an unusual sensation of movement under certain conditions. Pt notes that she gets dizzy when she tried to perform a valsalva maneuver to pop her ears, driving over high hills/ mountains, when she moves her head really quickly, or if she goes from sitting to standing too quickly. Pt also notes that she has noticed fluid leaking from her ear canal. Pt reports that when this began one year ago, she had been getting over a very bad ear infection which lasted ~one month. Pt does reports she has been experiencing tinnitus, and she thinks it began when all her other symptoms started one year ago, but it may have been present longer than that . Upon questioning, pt also noted that she feels like she can hear her footsteps and her chewing more loudly internally than she used to, and some sounds, liek the pass in her car, increase her symptoms. Pt denies recent hearing changes, diplopia, dysarthria, discoordination, or decreased mentation/ consciousness. Pt reports symptoms are/not waxing/waning in nature. Pt denies hx of hyperlipidemia, diabetes, arrhythmia, head trauma, migraines, back/neck problems, CVA, anxiety/panic disorders, depression, or excessive smoking or drinking. PT-OP-C Subjective Start: 01/05/19 14:49 Freq: Status: Active Protocol: Document 01/05/19 13:45 DCW (Rec: 01/05/19 16:55 DCW [id number]) Patient Questionnaires ABC- Activity Specific Balance Confidence Scale ABC Score 67.5 ABC Functional Impairment 20 to <40% Impaired (Score 61- 80) Dizziness Handicap Inventory DHI Score 54% DHI Functional Impairment 40 to 59% Impaired (Score 40- 59) PT-OP-O Vestibular Start: 01/05/19 14:49 Freq: Status: Active Protocol: Document 01/05/19 13:45 DCW (Rec: 01/05/19 16:55 DCW [id number]) Vestibular Assessment Screening Tests Vestibular Artery Screen Negative Auditory Tests Porras Test Negative Rinne Test Negative Air Conduction Results Equal Visual Testing Smooth Pursuits Horizontal WNL Smooth Pursuits Vertical WNL Saccades Horizontal WNL Gaze Evoked Nystagmus With Fixation Negative Gaze Evoked Nystagmus Without Fixation Negative Heave Test Negative Thrust Head Negative Cover/Uncover Test WNL Theo String Test WNL Convergence Test WNL DVA (Line Degradation) 1 Vasalva Test Positive Head Shake Negative Vestibular Function Tests CTSIB Position 1 Mild Sway CTSIB Position 2 Moderate Sway CTSIB Position 3 Mild Sway CTSIB Position 4 Mild Sway CTSIB Position 5 Moderate Sway CTSIB Position 6 Mild Sway Comments Vestibular Comments Valsalva test positive for substantial increase in pt's subjective reports of symptoms , including unsteadiness, disequilibrium, and discomfort . No noted nystagmus. Pt also noted similar increase in symptoms when listening to recording of dial tone in her right ear, not her left. 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 The main symptoms suggestive of this disorder that pt demonstrates are pressure sensitivity (valsalva , altitude changes), imbalance (constant imbalance accentuated with head movement ), sound sensitivity (both internal (own heel strike, heart beat) and external (dial tone, ackerman from car stereo)), and tinnitus/aural fullness. While this is a very uncommon diagnosis and proper imaging would be required to accurately diagnosis pt with this disorder, her symptoms are not really suggestive of any other inner ear disorder. Unfortunately, vestibular therapy has not been shown to be an effective treatment for SCD, so whether this is an accurate diagnosis or not, there is no indication that pt would benefit from skilled vestibular therapy at this time. Pt should benefit from a referral to an ENT, and additionally, imaging may be useful to rule in or out SCD. Current standard is a high- resolution CT using .5 mm cuts , with reformation of the images in the plane of the superior canal. Physical Therapy Plan Frequency and Duration Frequency of Treatment 1x/Week Duration of Treatment 1 day Plan of Care Start Date 01/05/19 Plan of Care End Date 01/06/19 Therapeutic Interventions Therapeutic Interventions Vestibular Rehabilitation Other Referrals/Consults Referrals/Consults Recommended Pt should benefit from a referral to an ENT, and additionally, imaging may be useful to rule in or out Superior Canal Dehiscence. Current standard is a high- resolution CT using .5 mm cuts , with reformation of the images in the plane of the superior canal. Discharge Physical Therapy Discharge Comments Further vestibular therapy unlikely to assist pt at this time Next Visit Focus/Plan Next Note Type Discharge Summary
--- NOTE | 2019-01-05 16:56 | PT.OPPOC ---
Current Diagnoses Dizziness and giddiness (01/05/19) Visit Care Team Role Provider Type Nury Sotomayor DO Attending Provider Physician Primary Care Provider Specialty: [facility] Address: [address] [place] [address], [address], [place], [address] Email: 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 The main symptoms suggestive of this disorder that pt demonstrates are pressure sensitivity (valsalva , altitude changes), imbalance (constant imbalance accentuated with head movement ), sound sensitivity (both internal (own heel strike, heart beat) and external (dial tone, ackerman from car stereo)), and tinnitus/aural fullness. While this is a very uncommon diagnosis and proper imaging would be required to accurately diagnosis pt with this disorder, her symptoms are not really suggestive of any other inner ear disorder. Unfortunately, vestibular therapy has not been shown to be an effective treatment for SCD, so whether this is an accurate diagnosis or not, there is no indication that pt would benefit from skilled vestibular therapy at this time. Pt should benefit from a referral to an ENT, and additionally, imaging may be useful to rule in or out SCD. Current standard is a high- resolution CT using .5 mm cuts , with reformation of the images in the plane of the superior canal. Physical Therapy Plan Frequency and Duration Frequency of Treatment 1x/Week Duration of Treatment 1 day Plan of Care Start Date 01/05/19 Plan of Care End Date 01/06/19 Therapeutic Interventions Therapeutic Interventions Vestibular Rehabilitation Other Referrals/Consults Referrals/Consults Recommended Pt should benefit from a referral to an ENT, and additionally, imaging may be useful to rule in or out Superior Canal Dehiscence. Current standard is a high- resolution CT using .5 mm cuts , with reformation of the images in the plane of the superior canal. Discharge Physical Therapy Discharge Comments Further vestibular therapy unlikely to assist pt at this time Next Visit Focus/Plan Next Note Type Discharge Summary Plan of Care Dates Plan of Care Start Date 01/05/19 Plan of Care End Date 01/06/19 Please Sign and Return: I have reviewed this Plan of Care and certify that the skilled therapy services above are required to meet the patient?s needs. Physician Signature Date Printed Name and Credentials Clinical Instructor Signature Printed Name and Credentials
== END 2019-01-10 17:21 | disposition home or self-care (01) ==
LOC: PHYS 13:31
PROVIDERS: PCP Family Medicine; Visit Provider Family Medicine
DX: R42 Dizziness and giddiness (principal)
CPT/HCPCS: 97162

== ENCOUNTER → 2019-02-05 09:22 | Outpatient (CLI) | payer OTHER, MEDICAID, SELFPAY ==
[2019-02-05 10:42] LABS: Add Manual Diff / Slide Review NO; Basophils Absolute Auto 100 /uL (0-100); Basophils Percent Auto 0.9 % (0-2); Eosinophils Absolute Auto 200 /uL (0-450); Eosinophils Percent Auto 2.3 % (2-4); Hemoglobin 15.1 g/dL (12.0-16.0); Lymphocytes Absolute Auto 2400 /uL (1100-4500); Lymphocytes Percent Auto 29.9 % (25-40); Mean Corpuscular HGB Conc 34.4 % (30-36); Mean Corpuscular Hemoglobin 33.3 PG (26-34); Mean Corpuscular Volume 96.8 fL (80-100); Monocytes Absolute Auto 400 /uL (0-900); Monocytes Percent Auto 5.6 % (3-14); Neutrophils Absolute Auto 4800 /uL (1500-7000); Neutrophils Percent Auto 61.3 % (50-75); Platelet Count 287 X10^3/uL (150-400); Red Blood Cell Count 4.55 X10^6/uL (4.0-5.2); Red Cell Distribution Width 13.4 % (11.6-14.8); White Blood Cell Count 7.9 X10^3/uL (4.5-11.0)
[2019-02-05 11:34] LABS: Appearance Urine UA CLEAR; Bilirubin Urine UA NEGATIVE (NEGATIVE); Color Urine UA YELLOW; Glucose Urine UA NEGATIVE (Negative); Ketones Urine UA NEGATIVE (NEGATIVE); Leukocyte Esterase Urine UA NEGATIVE (NEGATIVE); Nitrite Urine UA NEGATIVE (Negative); Occult Blood Urine UA NEGATIVE (Negative); Protein Urine UA NEGATIVE (Negative); Urobilinogen Urine UA 0.2 E.U./dL (0.2)
[2019-02-05 11:35] LABS: pH Urine UA 7.5 (4.5-8.0)
[2019-02-05 11:51] LABS: Alanine Aminotransferase 54 IU/L (9-52); Albumin Globulin Ratio 1.9 (1.0-2.8); Alkaline Phosphatase 60 U/L (38-126); Aspartate Aminotransferase 34 IU/L (14-36); BUN Creatinine Ratio 14.3 (6-22); Bilirubin Total 0.6 mg/dL (0.2-1.3); Blood Urea Nitrogen 10 mg/dL (7-17); Calcium 10.3 mg/dL (8.4-10.2); Carbon Dioxide 25 mmol/L (22-32); Chloride 102 mmol/L (98-107); Cholesterol 156 mg/dL (140-199); Estimated Glomerular Filt Rate > 60.0 mL/min (>60); Globulin 2.7 g/dL (1.7-4.1); Glucose 102 mg/dL (70-100); HDL Cholesterol 38 mg/dL (40-60); HEMOLYSIS < 15 (0-50); LDL Cholesterol Calculated 93 mg/dL (<100); Potassium 4.3 mmol/L (3.4-5.1); Sodium 138 mmol/L (137-145); Total Protein 7.7 g/dL (6.3-8.2); Triglycerides 126 mg/dL (35-150)
[2019-02-05 11:54] LABS: Glucose 103 mg/dL (70-100)
[2019-02-05 12:11] LABS: HCG Quantitative /Beta subunit 3805.2 mIU/mL
[2019-02-05 12:22] LABS: Hemoglobin A1C% w Est Avg Glu 4.9 % (4.0-6.0)
[2019-02-05 16:08] LABS: Hepatitis B Surface Antigen NEGATIVE s/c (NEGATIVE); Rubella Antibody IgG 90.7 IU/mL (>15)
[2019-02-05 16:23] LABS: HIV 1 & 2 Ab/Ag 4th Gen Combo NEGATIVE (NEGATIVE); Hep C Virus Ab w/Reflex Quant NEGATIVE s/c (NEGATIVE)
[2019-02-07 17:56] LABS: Parvovirus B19 Antibody 0.2
[2019-02-07 19:30] LABS: RPR Screen Nonreactive (Nonreactive)
[2019-02-08 17:20] LABS: CMV IgG Antibody > 10.00 U/mL (< 0.60); CMV IgM Antibody < 30.00 AU/mL (< 30.00)
== END ==
PROVIDERS: PCP Family Medicine
DX: Z34.81 Encounter for supervision of other normal pregnancy, first trimester (principal); O33.7XX0 Maternal care for disproportion due to other fetal deformities, not applicable or unspecified; O26.841 Uterine size-date discrepancy, first trimester; H65.90 Unspecified nonsuppurative otitis media, unspecified ear; R42 Dizziness and giddiness; R53.83 Other fatigue; Z13.220 Encounter for screening for lipoid disorders
CPT/HCPCS: 36415; 80053; 80055; 80061; 81003; 82947; 83036; 84443; 84702; 86644; 86645; 86747; 86777; 86778; 86787; 86803; 86850; 86900; 86901; 87086; 87389

== ENCOUNTER → 2019-03-27 14:06 | Outpatient (CLI) | payer OTHER, MEDICAID, SELFPAY ==
[2019-03-30 09:32] LABS: Sequential Screen 1st Trimeste FINAL PENDING
== END ==
PROVIDERS: PCP Family Medicine
DX: Z34.81 Encounter for supervision of other normal pregnancy, first trimester (principal); Z36.0 Encounter for antenatal screening for chromosomal anomalies; Z3A.12 12 weeks gestation of pregnancy
CPT/HCPCS: 36415; 84163; 84702

== ENCOUNTER 2019-03-28 20:35 | Emergency (ER) | payer OTHER, MEDICAID, SELFPAY ==
[2019-03-28 20:45] VITALS: BP 121/82; PULSE 89; RESP 22; TEMP 36.9; O2SAT 100; BMI 31.2
[2019-03-28] MEDS: ALBUTEROL 2.5 MG/3 ML NEB (ADULT) INH (20:53)
[2019-03-28 20:55] VITALS: PULSE 86; RESP 16; O2SAT 99
[2019-03-28 21:29] VITALS: BP 121/75; PULSE 89; RESP 17; O2SAT 100
--- NOTE | 2019-03-28 21:47 | ED_ITS ---
HPI - Asthma General Chief Complaint: Asthma Stated Complaint: difficulty breathing, chest pain Time Seen by Provider: 03/28/19 21:47 Source: patient Mode of arrival: Ambulatory Limitations: no limitations History of Present Illness HPI Narrative: This is a 28 female comes to the emergency department with complaint of difficulty breathing, some chest discomfort, patient states that she has not had fevers, she has had not much nasal congestion but postnasal drip. She has also had a little bit of a hoarse voice. She states she has felt sort of tight in her chest. She has tried some albuterol with minimal impr ovement and had an albuterol nebulizer treatment here that she found helpful and allow her to start coughing more. She feels like there is something in her chest that she wants to cough up but has had a productive cough. Patient states that she has a history of asthma. She is currently at approximately 12 weeks. She denies any abdominal pain or other issues beyond nausea. Patient states she has been using some ventilated icy Hot on her chest but otherwise avoiding any other counter medications. Related Data Home Medications Medication Instructions Recorded Confirmed albuterol sulfate [ProAir HFA] 1 puff INHALATION PRN PRN 08/07/18 03/15/19 budesonide-formoterol [Symbicort] 1 puff INHALATION DIRECTED 08/07/18 03/15/19 prenat.vits,harlan,[id number] 1 tab PO DAILY 01/29/19 03/15/19 Previous Rx's Medication Instructions Recorded albuterol sulfate 2.5 mg INHALATION Q4H PRN #75 ml 03/28/19 nebulizer accessories #1 each 03/28/19 nebulizer and compressor #1 each 03/28/19 Allergies Allergy/AdvReac Type Severity Reaction Status Date / Time latex Allergy Mild rash Verified 03/28/19 20:45 gluten AdvReac Intermediate GI issues Verified 03/28/19 20:45 : lots of abdominal pain Review of Systems Review of Systems ROS Unobtainable: All systems reviewed & are unremarkable except as noted in HPI and below Patient History Medical History ADHD (Chronic) Anxiety (Acute) Asthma (Resolved) Patient denies significant medical history (Acute) Post traumatic stress disorder (PTSD) (Chronic) UTI (urinary tract infection) (Acute) Vertigo (Chronic ~2018) Vitiligo (Resolved) Surgical History Anesthesia (Resolved) H/O wisdom tooth extraction (Acute) History of section (Resolved) Social History marital status: unmarried,single Smoking Status: Former smoker alcohol intake frequency: holidays/special occasions only Substance Use Type: does not use Exam Narrative Exam Narrative: GEN: well nourished, well appearing female, alert and oriented x 3, patient appears to be in mild distress. HEENT: Atraumatic, pupils are equal round reactive to light, extraocular movements are intact, nares are clear, TMs are clear with no fluid, there is no conjunctival pallor. Throat is clear without any exudates, erythema, tonsillar enlargement or uvular deviation, patient is slightly hoarse with positive postnasal drip and cobblestoning HEART: Regular rate and rhythm without murmur, clicks, rubs. LUNGS:Lungs clear to auscultation, no wheezes, rales, crackles, chest moves symmetrically ABD:bowel sounds normal, soft, non-tender, no guarding, rebound, rigidity, no masses noted, no hepatosplenomegaly :No CVA tenderness MSCL: Non-tender, no muscle atrophy, muscles strength 5/5 upper and lower extremities, full range of motion, normal gait NEURO:CN 2-12 intact, sensation normal, SKIN: no rash skin changes noted Initial Vital Signs Initial Vital Signs: Vital Signs Temperature 98.4 F 03/28/19 20:45 Pulse Rate 89 03/28/19 20:45 Respiratory Rate 22 03/28/19 20:45 Blood Pressure 121/82 03/28/19 20:45 Pulse Oximetry 100 03/28/19 20:45 Course Orders Ordered: ED Orders 03/28/19 20:49 EKG-12 Lead Routine Discontinued Medications Albuterol (Ventolin) 2.5 mg INH NOW ONE Stop: 03/28/19 20:51 Last Admin: 03/28/19 20:53 Dose: 2.5 mg Documented by: VISHAL Vital Signs Vital signs: Vital Signs - 8 hr 03/28/19 20:45 03/28/19 20:55 03/28/19 21:29 Temperature 98.4 F Pulse Rate 89 86 89 Respiratory Rate 22 16 17 Blood Pressure 121/82 Blood Pressure [Left Arm] 121/75 Pulse Oximetry [address] [facility] - Asthma Lab Data Labs: Point of Care Testing Test Results Positive Urine Dip Bedside Urine Glucose Negative Bedside Urine Bilirubin - Negative Bedside Urine Ketone - Negative Urine Specific [place] 1.010 Bedside Urine Occult Blood - Negative Bedside Urine pH 7.0 Bedside Urine Protein - Negative Bedside Urine Urobilinogen - Negative Bedside Urine Nitrite - Negative Bedside Urine Leukocytes - Negative Esterase ECG Data Attestation: I personally reviewed and interpreted this ECG as follows: Prior ECG tracings: available for review Interpretation: Sinus rhythm rate 80 MO 153 QRS of [address] elevation or depression appreciated. Patient has prior available from 06/08/[address] [facility] Narrative Medical decision making narrative: Patient comes in she does not have any wheezing on exam although she is post nebulizer treatment. Patient's vitals are stable. She does have a history of asthma and has recent upper respiratory infection that may be causing some reactive changes exacerbating some asthma. She is about 10 weeks and defers any further workup. Patient and I discussed that my suspicion is that it symptomatic care along with albuterol as needed should be able to manage her symptoms. She has never used a spacer so respiratory therapy to give a spacer with draining here in the ED. Patient has albuterol at home that is on . She discussed possibly doing a nebulizer she has found the more helpful in the past on was given prescription for vials as well as nebulizer although discussed she may have to follow up with her primary care as sometimes these are not honored through the emergency department. Discharge Plan Departure Patient Disposition: Home Clinical Impression: URI (upper respiratory infection), Asthma Discharge Date/Time: 03/28/19 22:14 Instructions: DI for Asthma -- Adult Activity Restrictions/Additional Instructions: Follow-up with primary care in the next several days for recheck. You may use regular albuterol 1-2 puffs every 4 hours, use this with a spacer as it will often get into your lungs better than not using it with a spacer. You may use nebulized albuterol every 4 hours as needed. Prescription was sent to [facility] for nebulizer and kit and albuterol vials. Return to the emergency department for persistent fevers, worsening shortness of breath, lightheadedness, passing out, new abdominal pain, new chest pain, swelling in her lower extremities or other new or concerning symptoms. Prescriptions: New albuterol sulfate 2.5 mg /3 mL (0.083 %) solution for nebulization 2.5 mg INHALATION Q4H PRN (Reason: shortness of breath or wheezing) Qty: 75 RF: 0 (DME) nebulizer accessories Kit See Rx Instructions .ROUTE .MEDSUPPLY Qty: 1 RF: 0 (DME) nebulizer and compressor Device See Rx Instructions .ROUTE .MEDSUPPLY Qty: 1 RF: 0 No Action prenat.vits,harlan,[id number] Tablet 1 tab PO DAILY RF: 0 albuterol sulfate [ProAir HFA] 90 mcg/actuation HFA aerosol inhaler 1 puff Inhalation PRN PRN (Reason: Shortness Of Breath) RF: 0 Symbicort 160-4.5 mcg/actuation HFA aerosol inhaler 1 puff Inhalation DIRECTED RF: 0 Referrals: Nury Sotomayor DO [Primary Care Provider] -
== END 2019-03-28 22:14 | disposition home or self-care (01) ==
PROVIDERS: Emergency Provider Emergency Medicine; Family Provider Family Medicine; PCP Family Medicine
DX: J06.9 Acute upper respiratory infection, unspecified (principal); J45.909 Unspecified asthma, uncomplicated
CPT/HCPCS: 81003; 81025; 93005; 94640; 99282; 99283; J7613

== ENCOUNTER → 2019-04-03 10:18 | Outpatient (CLI) | payer OTHER, MEDICAID, SELFPAY | DX: O36.22X0 Maternal care for hydrops fetalis, second trimester, not applicable or unspecified (principal); Z3A.16 16 weeks gestation of pregnancy | CPT/HCPCS: 36415; 81420; 82105; 82677; 84163; 84702; 86336 ==

== ENCOUNTER → 2019-04-24 08:45 | Outpatient (CLI) | payer OTHER, MEDICAID, SELFPAY ==
[2019-04-28 06:44] LABS: Sequential Screen 2nd Trimeste SCREEN NEGATIVE
== END ==
DX: Z34.82 Encounter for supervision of other normal pregnancy, second trimester (principal); Z3A.16 16 weeks gestation of pregnancy
CPT/HCPCS: 36415; 82105; 82677; 84163; 84702; 86336

== ENCOUNTER → 2019-06-19 09:41 | Outpatient (CLI) | payer OTHER, MEDICAID, SELFPAY ==
[2019-06-19 10:34] LABS: Hematocrit 34.6 % (36-46)
[2019-06-19 10:44] LABS: Alanine Aminotransferase 12 IU/L (<35); Albumin 3.9 g/dL (3.5-5.0); Albumin Globulin Ratio 1.3 (1.0-2.8); Alkaline Phosphatase 67 U/L (38-126); Aspartate Aminotransferase 22 IU/L (14-36); Bilirubin Total 0.3 mg/dL (0.2-1.3); Bilirubin Unconjugated 0.3 mg/dL (0.0-1.1); Globulin 2.9 g/dL (1.7-4.1); HEMOLYSIS < 15 (0-50); Total Protein 6.8 g/dL (6.3-8.2)
[2019-06-19 14:34] LABS: Amylase 77 U/L (30-110)
== END ==
DX: Z34.82 Encounter for supervision of other normal pregnancy, second trimester (principal); Z3A.24 24 weeks gestation of pregnancy; L29.9 Pruritus, unspecified; R10.10 Upper abdominal pain, unspecified
CPT/HCPCS: 36415; 80076; 82150; 85014; 85018

== ENCOUNTER → 2019-06-21 10:12 | Outpatient (CLI) | payer OTHER, MEDICAID, SELFPAY ==
[2019-06-23 14:35] LABS: Bile Acids, Total 1 umol/L (< 20)
== END ==
DX: Z34.82 Encounter for supervision of other normal pregnancy, second trimester (principal); L29.9 Pruritus, unspecified; R10.10 Upper abdominal pain, unspecified; Z3A.24 24 weeks gestation of pregnancy
CPT/HCPCS: 36415; 82239

== ENCOUNTER 2019-06-26 09:13 | Emergency (ER) | payer OTHER, MEDICAID, SELFPAY ==
[2019-06-26 09:33] VITALS: BP 139/72; PULSE 72; RESP 12; TEMP 36.9; O2SAT 99
--- NOTE | 2019-06-26 09:34 | ED_ITS ---
HPI - Neuro Symptoms/Deficit General Chief Complaint: Neuro Symptoms/Deficit Stated Complaint: ALMOST PASSED OUT,SLOW MOTION 25 WEEKS PREG Time Seen by Provider: 06/26/19 09:30 History of Present Illness HPI Narrative: at 25 weeks gestational age with a history of uterine irritability and a 3 days demise with her last currently considered high risk with this . She presents after having an episode last night where she had a sense that ?there was something wrong?. She was mildly short of breath, she felt somewhat disoriented with somewhat clouded sen sorium and describes a sensation of looking through water however her vision being clear otherwise. She was intensely fatigued and fell asleep and actually slept soundly all night. She woke this morning still feeling somewhat ?off? still feels slightly altered sensorium is not reporting fevers, she has been chilled, no cough,, vomiting, diarrhea or chest pain. She states the baby has been moving and appropriately active. She notes some slight tenderness behind her right knee but no other extremity symptoms She has no other localizing symptoms or complaints. Related Data Home Medications Medication Instructions Recorded Confirmed albuterol sulfate [ProAir HFA] 1 puff INHALATION PRN PRN 08/07/18 06/26/19 budesonide-formoterol [Symbicort] 1 puff INHALATION DIRECTED 08/07/18 06/26/19 prenat.vits,harlan,[id number] 1 tab PO DAILY 01/29/19 06/26/19 Previous Rx's Medication Instructions Recorded albuterol sulfate 2.5 mg INHALATION Q4H PRN #75 ml 03/28/19 nebulizer accessories #1 each 04/02/19 nebulizer and compressor #1 each 04/02/19 omeprazole magnesium 20 mg 20 mg PO DAILY 60 Days #60 cap 06/22/19 capsule,delayed release Allergies Allergy/AdvReac Type Severity Reaction Status Date / Time latex Allergy Mild rash Verified 06/21/19 09:52 gluten AdvReac Intermediate GI issues Verified 06/21/19 09:52 : lots of abdominal pain Review of Systems Review of Systems Narrative: Otherwise unremarkable Patient History Medical History ADHD (Chronic) Anxiety (Acute) Asthma (Resolved) Patient denies significant medical history (Acute) Post traumatic stress disorder (PTSD) (Chronic) UTI (urinary tract infection) (Acute) Vertigo (Chronic ~2018) Vitiligo (Resolved) Vomiting blood (Acute) Surgical History Anesthesia (Resolved) H/O wisdom tooth extraction (Acute) History of section (Resolved) Social History marital status: unmarried,single Smoking Status: Former smoker Smoking Status: Former smoker alcohol intake frequency: holidays/special occasions only Substance Use Type: does not use Exam Narrative Exam Narrative: General: Healthy appearing, in no acute distress. Able to give a complete and coherent history. Well-nourished well-developed HEENT: Moist mucous membranes, normal sclera with reactive pupils, Neck: No JVD, supple Respiratory: Lungs are clear to auscultation, no wheezing no rales no rhonchi. Full and symmetrical air movement Cardiac: Regular rate and rhythm no murmurs no bruits Abdomen: Soft nontender good bowel tones, no flank pain, gravid Skin: Warm and dry, no rashes Neurologic: Grossly neurologically intact with no obvious asymmetries or abnormalities Extremities: No trauma, well perfused Psych: Cooperative, appropriate affect Bedside ultrasound is done in the emergency department: Viable intrauterine, vertex, male fetus Normal amounts of fluid Healthy appearing placenta with no obvious sub placental hemorrhage Heart rate at 160 Initial Vital Signs Initial Vital Signs: Vital Signs Temperature 98.4 F 06/26/19 09:33 Pulse Rate 72 06/26/19 09:33 Respiratory Rate 12 06/26/19 09:33 Blood Pressure 139/72 06/26/19 09:33 Pulse Oximetry 99 06/26/19 09:33 Course Orders Ordered: ED Orders 06/26/19 09:55 Complete Blood Count AUTO DIFF Stat Comprehensive Metabolic Panel Stat D Dimer Stat 06/26/19 10:00 Urinalysis and Microscopic Stat Vital Signs Vital signs: Vital Signs - 8 hr 06/26/19 09:33 06/26/19 11:57 Temperature 98.4 F Pulse Rate 72 78 Respiratory Rate 12 15 Blood Pressure 139/72 Blood Pressure [Right Arm] 121/64 Pulse Oximetry 99 100 MDM - Neuro Symptoms/Deficit Medical Records Attestation: I reviewed the patient's medical records. Lab Data Attestation: I reviewed the patient's lab results. Lab results narrative: Mild leukocytosis with left shift. may represents developing viral infection or simiply leukocytosis of . No evidence of pneumonia. D-dimer in 2nd trimester of corrects into the normal range. No evidence of PE or DVT at this time. Result diagrams: 06/26/19 09:55 06/26/19 09:55 Labs: Lab Results 06/26/19 06/26/19 06/26/19 Range/Units 09:55 09:55 09:55 WBC 14.6 H (4.5-11.0) X10^3/uL RBC 3.83 L (4.0-5.2) X10^6/uL Hgb 12.6 (12.0-16.0) g/dL Hct 35.7 L (36-46) % MCV 93.3 (80-100) fL MCH 32.9 (26-34) PG MCHC 35.3 (30-36) % RDW 12.9 (11.6-14.8) % Plt Count 238 (150-400) X10^3/uL Neut % (Auto) 78.0 H (50-75) % Lymph % (Auto) 15.8 L (25-40) % [place] % (Auto) 4.8 (3-14) % Eos % (Auto) 0.4 L (2-4) % Baso % (Auto) 1.0 (0-2) % Neut # (Auto) 31336 H (4585-3993) /uL Lymph # (Auto) 2300 (1584-4614) /uL [place] # (Auto) 700 (0-900) /uL Eos # (Auto) 100 (0-450) /uL Baso # (Auto) 100 (0-100) /uL D-Dimer 301 H (<230) ng/mL Sodium 137 (137-145) mmol/L Potassium 3.8 (3.4-5.1) mmol/L Chloride 104 (98-107) mmol/L Carbon Dioxide 21 L (22-32) mmol/L BUN 8 (7-17) mg/dL Creatinine 0.60 (0.52-1.04) mg/dL Estimated GFR > 60.0 (>60) mL/min BUN/Creatinine Ratio 13.3 (6-22) Glucose 94 (70-100) mg/dL Calcium 9.0 (8.4-10.2) mg/dL Total Bilirubin 0.3 (0.2-1.3) mg/dL AST 19 (14-36) IU/L ALT 11 (<35) IU/L Alkaline Phosphatase 71 (38-126) U/L Total Protein 7.0 (6.3-8.2) g/dL Albumin 4.0 (3.5-5.0) g/dL Globulin 3.0 (1.7-4.1) g/dL Albumin/Globulin Ratio 1.3 (1.0-2.8) Urine Color Urine Appearance Urine pH (4.5-8.0) Ur Specific [place] (1.000-1.035) Urine Protein (Negative) Urine Glucose (UA) (Negative) g/dL Urine Ketones (NEGATIVE) Urine Occult Blood (Negative) Urine Nitrate (Negative) Urine Bilirubin (NEGATIVE) Urine Urobilinogen (0.2) E.U./dL Ur Leukocyte Esterase (NEGATIVE) Urine RBC (0-5/HPF) Urine WBC (0-5/HPF) Ur Squamous Epith Cells (0-5/HPF) Urine Bacteria (None) Ur Culture Indicated? 06/26/19 Range/Units 10:00 WBC (4.5-11.0) X10^3/uL RBC (4.0-5.2) X10^6/uL Hgb (12.0-16.0) g/dL Hct (36-46) % MCV (80-100) fL MCH (26-34) PG MCHC (30-36) % RDW (11.6-14.8) % Plt Count (150-400) X10^3/uL Neut % (Auto) (50-75) % Lymph % (Auto) (25-40) % [place] % (Auto) (3-14) % Eos % (Auto) (2-4) % Baso % (Auto) (0-2) % Neut # (Auto) (3003-5507) /uL Lymph # (Auto) (4910-1601) /uL [place] # (Auto) (0-900) /uL Eos # (Auto) (0-450) /uL Baso # (Auto) (0-100) /uL D-Dimer (<230) ng/mL Sodium (137-145) mmol/L Potassium (3.4-5.1) mmol/L Chloride (98-107) mmol/L Carbon Dioxide (22-32) mmol/L BUN (7-17) mg/dL Creatinine (0.52-1.04) mg/dL Estimated GFR (>60) mL/min BUN/Creatinine Ratio (6-22) Glucose (70-100) mg/dL Calcium (8.4-10.2) mg/dL Total Bilirubin (0.2-1.3) mg/dL AST (14-36) IU/L ALT (<35) IU/L Alkaline Phosphatase (38-126) U/L Total Protein (6.3-8.2) g/dL Albumin (3.5-5.0) g/dL Globulin (1.7-4.1) g/dL Albumin/Globulin Ratio (1.0-2.8) Urine Color Yellow Urine Appearance Sl cloudy Urine pH 7.5 (4.5-8.0) Ur Specific [place] 1.010 (1.000-1.035) Urine Protein Negative (Negative) Urine Glucose (UA) Negative (Negative) g/dL Urine Ketones Negative (NEGATIVE) Urine Occult Blood Negative (Negative) Urine Nitrate Negative (Negative) Urine Bilirubin Negative (NEGATIVE) Urine Urobilinogen 0.2 (0.2) E.U./dL Ur Leukocyte Esterase Negative (NEGATIVE) Urine RBC None seen (0-5/HPF) Urine WBC None seen (0-5/HPF) Ur Squamous Epith Cells 5-10 /hpf H (0-5/HPF) Urine Bacteria Few (2-10) H (None) Ur Culture Indicated? Cult not indicated Point of Care Testing Glucose POC 89 ECG Data Attestation: I personally reviewed and interpreted this ECG as follows: Interpretation: Sinus rhythm at a rate of 104 No acute ischemia, normal axis normal intervals MDM Narrative Medical decision making narrative: Nonspecific complaint of ?not feeling right? at 25 weeks gestational age. Mild white count but no clinical signs of infection. PE and DVT are unlikely given her exam and her corrected D-dimer score. Anticipatory guidance is given, recommended rest fluids and careful observation. If she feels that she is getting worse she is encouraged to return to the emergency department. She is safe for home discharge. Discharge Plan Departure Patient Disposition: Home Clinical Impression: Malaise Qualifiers: Weeks of gestation: 25 weeks Qualified Code(s): Z3A.25 - 25 weeks gestation of Activity Restrictions/Additional Instructions: Thank you for coming in today I did not find anything life-threatening on your exam or your workup today. I do not have a full explanation for the symptoms that you experienced last night but they do not seem to be from significant infection, heart attack, stroke, a blood clot in your lungs or any acute issues with your baby. I am going to recommend that we simply watch and see what your body tells us ne xt. I suspect that your going to feel better in a day or 2 and would not be surprised if he started showing some mild upper respiratory type viral symptoms. If you notice symptoms are worsening please feel free to return to the emergency room and I am happy to re-evaluate. I hope you feel better. Good luck with the rest of your . Prescriptions: No Action (DME) nebulizer and compressor Device See Rx Instructions .ROUTE .MEDSUPPLY Qty: 1 RF: 0 (DME) nebulizer accessories Kit See Rx Instructions .ROUTE .MEDSUPPLY Qty: 1 RF: 0 omeprazole magnesium 20 mg capsule,delayed release(DR/EC) 20 mg PO DAILY 60 Days Qty: 60 RF: 0 prenat.vits,harlan,[id number] Tablet 1 tab PO DAILY RF: 0 albuterol sulfate [ProAir HFA] 90 mcg/actuation HFA aerosol inhaler 1 puff Inhalation PRN PRN (Reason: Shortness Of Breath) RF: 0 budesonide-formoterol [Symbicort] 160-4.5 mcg/actuation HFA aerosol inhaler 1 puff Inhalation DIRECTED RF: 0 albuterol sulfate 2.5 mg /3 mL (0.083 %) solution for nebulization 2.5 mg INHALATION Q4H PRN (Reason: shortness of breath or wheezing) Qty: 75 RF: 0 Referrals: Guzman Beth MD [Primary Care Provider] -
[2019-06-26 10:05] LABS: Add Manual Diff / Slide Review NO; Basophils Absolute Auto 100 /uL (0-100); Eosinophils Absolute Auto 100 /uL (0-450); Eosinophils Percent Auto 0.4 % (2-4); Hematocrit 35.7 % (36-46); Hemoglobin 12.6 g/dL (12.0-16.0); Lymphocytes Absolute Auto 2300 /uL (1100-4500); Lymphocytes Percent Auto 15.8 % (25-40); Mean Corpuscular HGB Conc 35.3 % (30-36); Mean Corpuscular Hemoglobin 32.9 PG (26-34); Mean Corpuscular Volume 93.3 fL (80-100); Monocytes Absolute Auto 700 /uL (0-900); Monocytes Percent Auto 4.8 % (3-14); Neutrophils Absolute Auto 11400 /uL (1500-7000); Platelet Count 238 X10^3/uL (150-400); Red Blood Cell Count 3.83 X10^6/uL (4.0-5.2); Red Cell Distribution Width 12.9 % (11.6-14.8); White Blood Cell Count 14.6 X10^3/uL (4.5-11.0)
[2019-06-26 10:06] LABS: RBC Urine None Seen (0-5/HPF); WBC Urine None Seen (0-5/HPF)
[2019-06-26 10:07] LABS: Appearance Urine UA SL CLOUDY; Bilirubin Urine UA NEGATIVE (NEGATIVE); Color Urine UA YELLOW; Glucose Urine UA NEGATIVE (Negative); Ketones Urine UA NEGATIVE (NEGATIVE); Leukocyte Esterase Urine UA NEGATIVE (NEGATIVE); Nitrite Urine UA NEGATIVE (Negative); Occult Blood Urine UA NEGATIVE (Negative); Protein Urine UA NEGATIVE (Negative); Urobilinogen Urine UA 0.2 E.U./dL (0.2)
[2019-06-26 10:08] LABS: pH Urine UA 7.5 (4.5-8.0)
[2019-06-26 10:15] LABS: Bacteria Urine Few (2-10); Culture Indicated Urine Cult Not Indicated; Squamous Epithelial Cell Urine 5-10 /HPF (0-5/HPF)
[2019-06-26 10:16] LABS: D Dimer 301 ng/mL (<230)
[2019-06-26 10:32] LABS: Alanine Aminotransferase 11 IU/L (<35); Alkaline Phosphatase 71 U/L (38-126); Aspartate Aminotransferase 19 IU/L (14-36); BUN Creatinine Ratio 13.3 (6-22); Bilirubin Total 0.3 mg/dL (0.2-1.3); Blood Urea Nitrogen 8 mg/dL (7-17); Carbon Dioxide 21 mmol/L (22-32); Chloride 104 mmol/L (98-107); Estimated Glomerular Filt Rate > 60.0 mL/min (>60); Glucose 94 mg/dL (70-100); Potassium 3.8 mmol/L (3.4-5.1); Sodium 137 mmol/L (137-145)
[2019-06-26 10:33] LABS: Albumin Globulin Ratio 1.3 (1.0-2.8); HEMOLYSIS 16 (0-50)
[2019-06-26 11:57] VITALS: BP 121/64; PULSE 78; RESP 15; O2SAT 100
== END 2019-06-26 12:34 | disposition home or self-care (01) ==
PROVIDERS: Emergency Provider Emergency Medicine
DX: O26.812 Pregnancy related exhaustion and fatigue, second trimester (principal); Z3A.25 25 weeks gestation of pregnancy; R79.89 Other specified abnormal findings of blood chemistry
CPT/HCPCS: 36415; 80053; 81001; 82962; 85025; 85379; 93005; 93010; 99284

== ENCOUNTER → 2019-07-04 10:21 | Outpatient (CLI) | payer OTHER, MEDICAID, SELFPAY ==
[2019-07-04 12:17] LABS: GTT (PREG) 1 Hour PP 50gm Dose 131 mg/dL (76-139)
== END ==
DX: Z34.82 Encounter for supervision of other normal pregnancy, second trimester (principal); Z3A.24 24 weeks gestation of pregnancy
CPT/HCPCS: 36415; 82950

== ENCOUNTER 2019-07-06 17:24 | Outpatient (CLI) | payer OTHER, MEDICAID, SELFPAY ==
[2019-07-06 18:22] LABS: RBC Urine None Seen (0-5/HPF)
[2019-07-06 18:38] LABS: Appearance Urine UA CLEAR; Bilirubin Urine UA NEGATIVE (NEGATIVE); Color Urine UA YELLOW; Glucose Urine UA NEGATIVE (Negative); Ketones Urine UA TRACE (NEGATIVE); Leukocyte Esterase Urine UA NEGATIVE (NEGATIVE); Nitrite Urine UA NEGATIVE (Negative); Occult Blood Urine UA NEGATIVE (Negative); Protein Urine UA NEGATIVE (Negative); Urobilinogen Urine UA 0.2 E.U./dL (0.2)
[2019-07-06 18:50] LABS: Amorphous Sediment Urine 1+; Bacteria Urine Few (2-10); Culture Indicated Urine Cult Not Indicated; Squamous Epithelial Cell Urine 0-1 /HPF (0-5/HPF); WBC Urine 0-1/HPF (0-5/HPF)
--- NOTE | 2019-07-07 12:50 | PM.OBTRLD ---
Visit Information Visit Information Date of evaluation: 07/06/19 Primary OB Provider: Guzman Beth On-call OB Provider: Rachel Singh Reason for Evaluation: Yes pre-term labor Vital Signs Vital Signs: Blood pressure 131/75, pulse of 98, temperature 36.4? [facility] Social History marital status: unmarried,single Smoking Status: Former smoker Review of Systems Review of Systems Narrative: Patient complaining of cramping also a less than 10 minute episode of feeling like she did when she received a spinal in the past of feeling out of it lightheaded dizzy. No leakage of fluid. No unusual vaginal discharge or bleeding. Good movement. No headaches, right upper quadrant pain, or scotomata. ROS: Yes All systems reviewed with the patient and are negative except as otherwise documented Objective Labs Labs: Laboratory Results - last 24 hr 07/06/19 18:20 Urine Color Yellow Urine Appearance Clear Urine pH 7.0 Ur Specific [place] 1.020 Urine Protein Negative Urine Glucose (UA) Negative Urine Ketones Trace H Urine Occult Blood Negative Urine Nitrate Negative Urine Bilirubin Negative Urine Urobilinogen 0.2 Ur Leukocyte Esterase Negative Urine RBC None seen Urine WBC 0-1/hpf Ur Squamous Epith Cells 0-1 /hpf Amorphous Sediment 1+ Urine Bacteria Few (2-10) H Ur Culture Indicated? Cult not indicated Evaluation Evaluation Baseline heart rate: 140 Variability: Moderate (11-25) monitor accelerations: Present monitor decelerations: Absent Contraction Frequency (minutes): 0 Category of Tracing: I Laboratory results: Laboratory Tests 07/06/19 18:20 Urine Color Yellow Urine Appearance Clear Urine pH 7.0 Ur Specific [place] 1.020 Urine Protein Negative Urine Glucose (UA) Negative Urine Ketones Trace H Urine Occult Blood Negative Urine Nitrate Negative Urine Bilirubin Negative Urine Urobilinogen 0.2 Ur Leukocyte Esterase Negative Urine RBC None seen Urine WBC 0-1/hpf Ur Squamous Epith Cells 0-1 /hpf Amorphous Sediment 1+ Urine Bacteria Few (2-10) H Ur Culture Indicated? Cult not indicated Diagnosis, Plan/Disposition Final Diagnosis (1) 26 weeks gestation of : Current Visit: No Status: Acute (2) Dehydration during : Current Visit: No Status: Acute Plan/Disposition Plan: 26 week gestation with multiple concerns probably related to dehydration. Patient is to push fluids and reassured that everything appears to be normal. OB Disposition: home
== END 2019-07-06 19:06 | disposition home or self-care (01) ==
LOC: LABOR 17:28 → OB 07-09 11:51
PROVIDERS: Referring Provider Specialist; Visit Provider Specialist
DX: O47.02 False labor before 37 completed weeks of gestation, second trimester (principal); R42 Dizziness and giddiness; E86.0 Dehydration; Z3A.26 26 weeks gestation of pregnancy
CPT/HCPCS: 59025; 81001; G0378; G0379

== ENCOUNTER 2019-08-03 10:40 | Outpatient (CLI) | payer OTHER, MEDICAID, SELFPAY ==
[2019-08-03 11:44] LABS: Bacteria Urine None Seen; RBC Urine None Seen (0-5/HPF); WBC Urine None Seen (0-5/HPF)
[2019-08-03 11:46] LABS: Appearance Urine UA CLEAR; Bilirubin Urine UA NEGATIVE (NEGATIVE); Color Urine UA YELLOW; Glucose Urine UA NEGATIVE (Negative); Ketones Urine UA NEGATIVE (NEGATIVE); Leukocyte Esterase Urine UA NEGATIVE (NEGATIVE); Nitrite Urine UA NEGATIVE (Negative); Occult Blood Urine UA NEGATIVE (Negative); Protein Urine UA NEGATIVE (Negative); Specific Gravity Urine UA <=1.005 (1.000-1.035); Urobilinogen Urine UA 0.2 E.U./dL (0.2)
[2019-08-03 12:03] LABS: Culture Indicated Urine Cult Not Indicated; Urine Comments Microscopic Normal
--- NOTE | 2019-08-03 12:07 | P.TNLD_ITS ---
Visit Information Visit Information Date of evaluation: 08/03/19 Primary OB Provider: Guzman Beth On-call OB Provider: Rachel Singh Reason for Evaluation: Yes other Comments/Additional reasons for admission: Pelvic pain and pressure [facility] Social History marital status: unmarried,single Smoking Status: Former smoker Review of Systems Review of Systems Narrative: Patient complains of feeling like the baby is pushing down very low. She has pain in her pelvis. She is having difficulty initiating urination. She denies any problems with bowel movements. Baby is moving well. No headaches, scotomata, epigastric pain. She is wearing a pad but does not feel that she is leaking fluid but more leaking urine. No vaginal bleeding ROS: Yes All systems reviewed with the patient and are negative except as otherwise documented Exam Narrative Exam Narrative: Abdomen is soft, nontender. Objective Labs Labs: Laboratory Results - last 24 hr 08/03/19 11:30 Urine Color Yellow Urine Appearance Clear Urine pH 7.0 Ur Specific [place] <=1.005 Urine Protein Negative Urine Glucose (UA) Negative Urine Ketones Negative Urine Occult Blood Negative Urine Nitrate Negative Urine Bilirubin Negative Urine Urobilinogen 0.2 Ur Leukocyte Esterase Negative Urine RBC None seen Urine WBC None seen Urine Bacteria None seen Ur Culture Indicated? Cult not indicated Micro UA Comment Microscopic normal Evaluation Evaluation Baseline heart rate: 145 Variability: Moderate (11-25) monitor accelerations: Present monitor decelerations: Absent Contraction Frequency (minutes): 0 Category of Tracing: I Cervical dilation (cm): 0 Cervical effacement (%): 0 station: -4 Laboratory results: Laboratory Tests 08/03/19 11:30 Urine Color Yellow Urine Appearance Clear Urine pH 7.0 Ur Specific [place] <=1.005 Urine Protein Negative Urine Glucose (UA) Negative Urine Ketones Negative Urine Occult Blood Negative Urine Nitrate Negative Urine Bilirubin Negative Urine Urobilinogen 0.2 Ur Leukocyte Esterase Negative Urine RBC None seen Urine WBC None seen Urine Bacteria None seen Ur Culture Indicated? Cult not indicated Micro UA Comment Microscopic normal Diagnosis, Plan/Disposition Final Diagnosis (1) Pelvic pain affecting : Current Visit: Yes Status: Acute Plan/Disposition Plan: Patient is reassured that there are no contractions on the monitor and her cervix is long and closed with the presenting part not in the pelvis. OB Disposition: home
== END 2019-08-03 11:35 | disposition home or self-care (01) ==
LOC: OB 08-06 11:10
PROVIDERS: Specialist
DX: O26.893 Other specified pregnancy related conditions, third trimester (principal); R10.2 Pelvic and perineal pain; R39.198 Other difficulties with micturition; Z3A.30 30 weeks gestation of pregnancy
CPT/HCPCS: 59025; 81001; G0378; G0379

== ENCOUNTER 2019-08-27 08:29 | Outpatient (CLI) | payer OTHER, MEDICAID, SELFPAY ==
--- NOTE | 2019-08-27 08:54 | P.TNLD_ITS ---
Visit Information Visit Information Date of evaluation: 08/27/19 Primary OB Provider: Guzman Beth On-call OB Provider: Rachel Singh Reason for Evaluation: Yes non-stress test non-stress test reason: other (History hydrops, polyhydramnios) Vital Signs Vital Signs: Repeat blood pressure 121/71 [facility] Social History marital status: unmarried,single Smoking Status: Former smoker Evaluation Evaluation Baseline heart rate: 140 Variability: Moderate (11-25) monitor accelerations: Present monitor decelerations: Absent Contraction Frequency (minutes): 0 Diagnosis, Plan/Disposition Final Diagnosis (1) Polyhydramnios in morrow in third trimester: Current Visit: Yes Status: Acute (2) 34 weeks gestation of : Current Visit: Yes Status: Acute Plan/Disposition Plan: Patient is to continue weekly nonstress tests and visits. OB Disposition: home
== END 2019-08-27 09:03 | disposition home or self-care (01) ==
LOC: LABOR 09:02 → OB 14:24
PROVIDERS: Referring Provider Specialist; Visit Provider Specialist
DX: O40.3XX0 Polyhydramnios, third trimester, not applicable or unspecified (principal); Z87.59 Personal history of other complications of pregnancy, childbirth and the puerperium; Z3A.34 34 weeks gestation of pregnancy
CPT/HCPCS: 59025; G0378; G0379

== ENCOUNTER 2019-09-03 11:34 | Outpatient (CLI) | payer OTHER, MEDICAID, SELFPAY | END 2019-09-03 12:51 | disposition home or self-care (01) | LOC: LABOR 11:38 → OB 09-04 13:35 | DX: O40.3XX0 Polyhydramnios, third trimester, not applicable or unspecified (principal); Z3A.35 35 weeks gestation of pregnancy | CPT/HCPCS: 59025; G0378; G0379 ==

== ENCOUNTER 2019-09-06 10:03 | Outpatient (CLI) | payer OTHER, MEDICAID, SELFPAY | END 2019-09-06 10:50 | disposition home or self-care (01) | LOC: LABOR 10:10 → OB 13:12 | PROVIDERS: Referring Provider Specialist; Visit Provider Specialist | DX: O40.3XX0 Polyhydramnios, third trimester, not applicable or unspecified (principal); Z3A.35 35 weeks gestation of pregnancy | CPT/HCPCS: 59025; G0378; G0379 ==

== ENCOUNTER → 2019-09-10 08:42 | Outpatient (CLI) | payer OTHER, MEDICAID, SELFPAY ==
[2019-09-11 07:46] LABS: Strep Grp B PCR POS for Grp B Strep
== END ==
DX: Z34.83 Encounter for supervision of other normal pregnancy, third trimester (principal); Z3A.36 36 weeks gestation of pregnancy
CPT/HCPCS: 87653

== ENCOUNTER 2019-09-10 09:08 | Outpatient (CLI) | payer OTHER, MEDICAID, SELFPAY | END 2019-09-10 10:05 | disposition home or self-care (01) | LOC: LABOR 10:10 → OB 15:09 | DX: O40.3XX0 Polyhydramnios, third trimester, not applicable or unspecified (principal); Z3A.36 36 weeks gestation of pregnancy | CPT/HCPCS: 59025; 87653; G0378; G0379 ==

== ENCOUNTER 2019-09-13 16:05 | Outpatient (CLI) | payer OTHER, MEDICAID, SELFPAY ==
--- NOTE | 2019-09-13 16:42 | PM.OBTRLD ---
Visit Information Visit Information Date of evaluation: 09/13/19 Primary OB Provider: Guzman Beth On-call OB Provider: Kelly Amanda Reason for Evaluation: Yes non-stress test non-stress test reason: other (hx of hydrops, polyhydramnios) PFSH Medical History (Updated 09/13/19 @ 16:44 by Kelly mAanda MD) ADHD (Chronic) Anxiety (Acute) Asthma (Resolved) Hydrops fetalis in third trimester, antepartum (Resolved) Patient denies significant medical history (Acute) Post traumatic stress disorder (PTSD) (Chronic) UTI (urinary tract infection) (Acute) Vertigo (Chronic ~2018) Vitiligo (Resolved) Vomiting blood (Acute) Surgical History Anesthesia (Resolved) H/O wisdom tooth extraction (Acute) History of section (Resolved) Social History marital status: unmarried,single Smoking Status: Former smoker Evaluation Evaluation Baseline heart rate: 140 Variability: Moderate (11-25) monitor accelerations: Present monitor decelerations: Absent Category of Tracing: I Diagnosis, Plan/Disposition Final Diagnosis (1) Polyhydramnios in morrow in third trimester: Current Visit: No Status: Acute (2) 36 weeks gestation of : Current Visit: Yes Status: Acute Plan/Disposition Plan: 36w3d. Reactive NST. Continue regular testing. OB Disposition: home
== END 2019-09-13 16:43 | disposition home or self-care (01) ==
LOC: LABOR 16:12 → OB 09-14 11:58
PROVIDERS: Referring Provider Specialist; Visit Provider Specialist
DX: O40.3XX0 Polyhydramnios, third trimester, not applicable or unspecified (principal); Z3A.37 37 weeks gestation of pregnancy
CPT/HCPCS: 59025; G0378; G0379

== ENCOUNTER 2019-09-17 08:03 | Inpatient (IN) | payer OTHER, MEDICAID, SELFPAY ==
--- NOTE | 2019-09-17 | PATH_ITS ---
[facility] Accession Number: [id number] . 01 Material submitted: . fallopian tube - BILATERAL FALLOPIAN TUBE SEGMENTS . 01 Clinical history: . NST . 02 Diagnosis: Bilateral Fallopian Tube Segments, Sterilization: Bilateral circumferential fallopian tube segments. [facility] 09/19/2019 1232 Local . 02 Electronically signed: . Judy Mcgill MD, Pathologist NPI- [id number] . 01 Gross description: . Received in one formalin-filled container, labeled with the patient's name and labeled bilateral fallopian tube segments, are two nonfimbriated, cylindrical-shaped portions of tissue. The first measures 1.5 x 0.7 x 0.6 cm; trisected and totally submitted in cassette A1. The second piece measures 0.9 x 0.7 x 0.6 cm; trisected and totally submitted in cassette A2. ([id number]) /[facility] 09/19/2019 0214 Local . 02 Pathologist provided ICD-10: Z30.2 . 02 CPT . 188463 Performed at: 01 [facility] [address] [facility], [place], [place] [id number] MD Mehul Shukla MD Phone: [phone] [facility]formed at: 02 [facility] [address] [place], [place] [id number] MD Judy Mcgill MD Phone: [phone]
[2019-09-17] MEDS: LACTATED RINGERS 500 ML 1000 ML IV (09:30)
[2019-09-17 10:38] LABS: Appearance Urine UA CLEAR; Bilirubin Urine UA NEGATIVE (NEGATIVE); Color Urine UA YELLOW; Glucose Urine UA NEGATIVE (Negative); Ketones Urine UA NEGATIVE (NEGATIVE); Leukocyte Esterase Urine UA NEGATIVE (NEGATIVE); Nitrite Urine UA NEGATIVE (Negative); Occult Blood Urine UA NEGATIVE (Negative); Protein Urine UA NEGATIVE (Negative); Specific Gravity Urine UA <=1.005 (1.000-1.035); Urobilinogen Urine UA 0.2 E.U./dL (0.2)
--- NOTE | 2019-09-17 10:44 | DI.US.S_ITS ---
PROCEDURE: US OB LIMITED INDICATIONS: ASSESS SCAR; EFW; BPP OUTSIDE/PRIOR DATING DATA: Last menstrual period (LMP): Unknown LMP-based estimated date of delivery (JURGEN): Unknown. First dating scan (date and location): Unknown. Estimated date of delivery (JURGEN) from first dating scan: 10/08/19. TECHNIQUE: Real-time scanning was performed of the fetus, with image documentation and biometric measurements. Endovaginal scanning: Not performed COMPARISON: None. FINDINGS: General: A single living intrauterine gestation is present. Presentation: Vertex Placenta: Placental position is left fundal, without previa. Amniotic fluid index: 25.3 cm, normal range is 5-24 cm. heart rate: 140 beats per minute. Maternal cervical canal: Not well-seen. Normal lower limit is 2.5 cm. biometrics: Biparietal diameter: 9.6 cm, 40 weeks, 2 days Head circumference: 35.8 cm, outside of range. Abdominal circumference: 36.9 cm, 40 weeks, 6 days Femur length: 7.3 cm, 37 weeks, 3 days Estimated gestational age from initial scan: 37 weeks, zero day Composite gestational age from present scan: 39 weeks, 4 day Estimated weight and percentile: 4039 g. Measurement variability for biometric dating: +/- 7 days from 14 weeks to 15 weeks 6 days gestation, +/- 10 days from 16 weeks to 21 weeks 6 days gestation, +/- 2 weeks from 22 weeks to 27 weeks 6 days gestation, +/- 3 weeks for 28 weeks gestation or later. weight reference: 4500 g or EFW >90/95% is considered macrosomia or large for gestational age. EFW <10% is small for gestational age. EFW 5% or less is considered intra-uterine growth restriction. biophysical profile score Tone: 2 Movement: 2 Respiration: 2 Batista pocket: 2 section scar is not visualized on this study. No gross abnormality is seen in anterior pelvic wall. IMPRESSION: 1. Single live intrauterine with fetus in vertex presentation. heart rate is 140 beats per minute. 2. Normal growth. PARAMJIT equals 25.3 cm which is slightly increased. 3. biophysical profile score is 8 out of 8. 4. section scar is not well-seen on this study. Dictated by: Harry Sevilla M.D. on 09/17/2019 at 12:20 Approved by: Harry Sevilla M.D. on 09/17/2019 at 12:24
[2019-09-17] MEDS: NIFEdipine 10 MG CAPSULE PO ×3 (11:45→12:35)
--- NOTE | 2019-09-17 13:35 | P.HPOB_ITS ---
OB HPI Date/Time Date of admission: 09/17/19 Date Patient Seen: 09/17/19 Time Patient Seen: 11:00 History of Present Condition Chief complaint: NST : 4 Para: 3 Estimated Date of Delivery: 10/08/19 Narrative: Rhiannon Linton is a 28 year old @37+0 presenting for a scheduled NST for mild polyhydramnios, found to be persistently haylie q2. The patient reports that she has had cramping pain and diarrhea worsening over the course of the weekend, though she denies decreased movement, vaginal bleeding, LOF, fevers, chills, headaches, visual changes, or any other complaints. The patient reports that this has been complicated by unexplained but borderline polyhydramnios with normal diabetes testing. She denies any other complications, and denies any other contributory loan manager or surgical history. Her medical history is significant for well controlled asthma. The patient has a history of three prior deliveries, as below. The first was a term uncomplicated , the second was a term CS for breech presentation after an uncomplicated , and the third was complicated by demise aft er 39 week section. 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 Indications Operative indications ( section): previous uterine surgery History of Present care: none Dating criteria: based on 1st trimester US only Ultrasounds: normal 1st trimester US and normal mid trimester US Obstetrical complications: other (polyhydramnios) Medical complications: none Preadmission Labs Blood type: O (+) positive -: Antibody screen: negative, Cystic fibrosis screen: positive, HBsAG: negative, HIV: negative and RPR/VDLR: negative -: Chlamydia screen: not detected and Gonorrhea screen: not detected -: Rubella: immune and Varicella: immune Sequential screen: low risk 1 hr GTT: 131 Prior (ies) History: G1: 04/2012, F, , 39+2, 7#10 G2: 05/2015, F, pCS, breech presentation G3: 12/2017, F, rCS, IUFD, CMV infection and hydrops, abruption Evaluation Evaluation Baseline heart rate: 140 Variability: Moderate (11-25) monitor accelerations: Present monitor decelerations: Variable (rare) Contraction Frequency (minutes): 2 Category of Tracing: I Cervical dilation (cm): 1 Cervical effacement (%): 50 station: -3 Laboratory results: Laboratory Tests 09/17/19 10:15 Urine Color Yellow Urine Appearance Clear Urine pH 7.0 Ur Specific [place] <=1.005 Urine Protein Negative Urine Glucose (UA) Negative Urine Ketones Negative Urine Occult Blood Negative Urine Nitrate Negative Urine Bilirubin Negative Urine Urobilinogen 0.2 Ur Leukocyte Esterase Negative Comments: repeat SVE /-3 PFSH Medical History ADHD (Chronic) Anxiety (Acute) Asthma (Resolved) Hydrops fetalis in third trimester, antepartum (Resolved) Patient denies significant medical history (Acute) Post traumatic stress disorder (PTSD) (Chronic) UTI (urinary tract infection) (Acute) Vertigo (Chronic ~2017) Vitiligo (Resolved) Vomiting blood (Acute) Surgical History Anesthesia (Resolved) H/O wisdom tooth extraction (Acute) History of section (Resolved) Social History marital status: unmarried,single Smoking Status: Former smoker Meds Home Medications and Allergies Home Medications Medication Instructions Recorded Confirmed Type albuterol sulfate [ProAir HFA] 1 puff INHALATION PRN PRN 08/07/18 09/17/19 History budesonide-formoterol [Symbicort] 1 puff INHALATION DIRECTED 08/07/18 09/17/19 History albuterol sulfate 2.5 mg INHALATION Q4H PRN #75 ml 03/28/19 09/17/19 Rx nebulizer accessories #1 each 04/02/19 08/27/19 Rx nebulizer and compressor #1 each 04/02/19 08/27/19 Rx Allergies Allergy/AdvReac Type Severity Reaction Status Date / Time latex Allergy Mild rash Verified 08/15/19 11:31 gluten AdvReac Intermediate GI issues Verified 08/15/19 11:31 : lots of abdominal pain omeprazole AdvReac Unknown fatigue,AMS Verified 08/15/19 11:31 ,SOB Review of Systems Constitutional Constitutional: Reports system reviewed and no additional complaints, except as documented Cardiovascular Cardiovascular: Reports system reviewed; no additional complaints, except as documented Respiratory Respiratory: Reports system reviewed and no additional complaints, except as documented Gastrointestinal Gastrointestinal: Reports system reviewed and no additional complaints, except as documented Genitourinary Genitourinary: Reports system reviewed and no additional complaints, except as documented Neurologic Neurologic: Reports system reviewed and no additional complaints, except as documented Exam Resp Effort & Inspection: normal respiratory effort Auscultation: clear to auscultation bilaterally Cardio Rate: regular rate Rhythm: regular rhythm GI Palpation: soft and tender (tender over prior uterine incision, especially right side) Skin General: no rashes or lesions noted Objective Labs Labs: Laboratory Results - last 24 hr 09/17/19 10:15 Urine Color Yellow Urine Appearance Clear Urine pH 7.0 Ur Specific [place] <=1.005 Urine Protein Negative Urine Glucose (UA) Negative Urine Ketones Negative Urine Occult Blood Negative Urine Nitrate Negative Urine Bilirubin Negative Urine Urobilinogen 0.2 Ur Leukocyte Esterase Negative Assessment and Plan Assessment and Plan Assessment and Plan narrative: This patient presents for an NST for borderline polyhydramnios, and has reassuring testing with a 10/10 BPP. However, she has persistent q2 painful contractions despite IVF hydration and a course of nifedipine, now making some cervical change. We discussed the risks of early term delivery and the risks of repeat section including damage to surrounding organs, hemorrhage, and infection, and the patient vocalized understanding. Informed consent was obtained. - CBC, T&S, covid testing performed - NPO - IV fluids pending - cEFM, toco - OR crew en route
[2019-09-17 14:08] LABS: Add Manual Diff / Slide Review NO; Basophils Absolute Auto 100 /uL (0-100); Basophils Percent Auto 0.8 % (0-2); Eosinophils Absolute Auto 0 /uL (0-450); Eosinophils Percent Auto 0.2 % (2-4); Hematocrit 33.9 % (36-46); Hemoglobin 11.6 g/dL (12.0-16.0); Lymphocytes Absolute Auto 2400 /uL (1100-4500); Lymphocytes Percent Auto 20.8 % (25-40); Mean Corpuscular HGB Conc 34.2 % (30-36); Mean Corpuscular Hemoglobin 30.4 PG (26-34); Monocytes Absolute Auto 500 /uL (0-900); Monocytes Percent Auto 4.6 % (3-14); Neutrophils Absolute Auto 8700 /uL (1500-7000); Neutrophils Percent Auto 73.6 % (50-75); Platelet Count 225 X10^3/uL (150-400); Red Blood Cell Count 3.81 X10^6/uL (4.0-5.2); White Blood Cell Count 11.8 X10^3/uL (4.5-11.0)
[2019-09-17] MEDS: ACETAMINOPHEN 325 MG TABLET 975 MG PO (14:26)
[2019-09-17 15:34] VITALS: BP 115/75
[2019-09-17] MEDS: ONDANSETRON 4 MG/2 ML INJ IV ×3 (16:49→23:50)
[2019-09-17] MEDS: LACTATED RINGERS 1,000 ML 42 ML IV ×2 (17:00→17:45)
[2019-09-17] MEDS: CEFAZOLIN 2 GM/100 ML FROZ.PIGGY IV (17:03)
--- NOTE | 2019-09-17 17:50 | SUR.OPER ---
Supine on Padded OR bed, head on pillow, safety belt at thigh, arms secured on padded arm boards at <90 degrees abduction. Bump under right buttock. Legs uncrossed with pillow under knees, gel pad to heels, tape over blanket to lower legs.
--- NOTE | 2019-09-17 17:58 | SUR.OPER ---
Viable male delivered at 1732. Placenta and cord blood sent with L&D nurse.
[2019-09-17 18:17] VITALS: BP 117/62; PULSE 60; RESP 11; TEMP 36.2; O2SAT 100
[2019-09-17 18:22] VITALS: BP 123/67; PULSE 89; RESP 19; O2SAT 99
[2019-09-17 18:27] VITALS: BP 118/68; PULSE 65; RESP 14; O2SAT 100
--- NOTE | 2019-09-17 18:27 | P.OP_ITS ---
Operative Date/Time/Diagnoses Date of procedure: 09/17/19 Time of procedure: 18:30 Pre-op diagnosis: labor, prior section Post-op diagnosis: same Procedure & Clinicians Procedure: repeat section and bilateral tubal ligation. Same procedure as scheduled: Yes Indications: labor, prior section Surgeon: Shakira Garcia Land Conservation Specialist: Guzman Beth Anesthesia Type: Spinal Operative Notes Findings: Normal uterus, tubes, and ovaries. Moderate amount of scar tissue at level of muscle and peritoneum. Closure Type: primary Specimen(s): none sent Applied: catheter Estimated Blood Loss (mL): 500 Procedure in detail: EBL: 500ccs Fluids:1000ccs LR UOP: 150ccs yellow urine Findings: Male in cephalic presentation, Apgars 9+9, weight 8#8, normal uterus, tubes, ovaries. Procedures: The patient was taken to the operating room where spinal anesthesia was placed and found to be adequate. She was prepped and draped in the normal sterile fashion in the dorsal supine position with a leftward tilt. A Pfannenstiel skin incision was made with a scalpel and carried through to the underlying layer of fascia. The fascia was incised in the midline and the incision extended laterally with Leon scissors. The inferior aspect of this incision was grasped with Scarlett clamps, elevated. and the underlying rectus muscles dissected off bluntly. Attention was then turned to the superior aspect of this incision which, in a similar fashion, was grasped, tented up with the Scarlett clamps, and the rectus muscles dissected off bluntly. The rectus muscles were then in the midline with sharp dissection and the peritoneum id entified, tented up, and entered sharply with Metzenbaum scissors. The peritoneal incision was extended superiorly and inferiorly with good visualization of the bladder and reduction of a moderate amount of scar tissue. The bladder blade was inserted and the vesicouterine peritoneum noted to have been incised during prior reduction of scar tissue. The bladder blade was then reinserted and the lower uterine segment incised in transverse fashion with the scalpel. The uterine incision was bluntly extended laterally. The bladder blade was removed, and the 's head delivered atraumatically with use of a vacuum. After 45 seconds of delayed cord clamping, the cord was clamped and cut. The nose and mouth were suctioned as needed with a bulb syringe, and the infant was handed off to awaiting pediatricians. The placenta was then removed spontaneously, and the uterus was exteriorized and cleared of all clots and debris. The uterine incision was repaired with 1-0 chromic in a running, locked fashion to obtain excellent hemostasis. Attention was then turned to the fallopian tubes, and the isthmus of the right fallopian tube grasped with a michael clamp. 2 loops of plain gut were used to tie off an approximately 2cm knuckle of fallopian tube, and this loop of tube was amputated with metzenbaum scissors, the endosalpinx trimmed and burned with the bovie in the modified [place] fashion. Attention was turned to the left fallopian tube, which was clamped, tied off, and cut in the same fashion. Hemostasis was good on both tubes and at the hysterotomy and the uterus was returned to the abdomen, and the gutters were cleared of all clots and debris. Inspection of the fallopian tubes bilaterally revealed bleeding at the right fallopian tubes, and both cut ends were individually grasped with a Shakira clamp and tied off with 0 chromic for good hemostasis. Inspection of the left fallopian tube showed that it remained hemostatic. The fascia was reapproximated with 0 Vicryl in a running fashion. The subcutaneous layer was placed with 3 0 Vicryl in an interrupted fashion and the skin was closed with 4-0 biosyn in a running fashion. The patient tolerated the procedure well sponge lap and needle counts were correct x2. 2 g of Ancef were given at commencement of the case. The patient was taken to the recovery room in stable condition. Complications: none Post-operative Condition: stable Disposition: PACU Plan for aftercare: Routine postoperative care
[2019-09-17 18:34] VITALS: BP 127/70; PULSE 58; O2SAT 100
[2019-09-17 18:37] VITALS: BP 116/77; PULSE 62; RESP 18; TEMP 36.2; O2SAT 100
--- NOTE | 2019-09-17 18:37 | SUR.PHASEI ---
Report called to center RN
--- NOTE | 2019-09-17 18:50 | SUR.PHASEI ---
Patient skin moist, c/o feeling hot, covers removed, patient reported feeling less moist. Patient transferred to the center. VS stable. Fundus and bleeding checked with [facility]. IV patient. Ramos patent. Patient able to wiggle toes.
[2019-09-17] MEDS: OXYCODONE IR 5 MG TABLET PO (21:30)
[2019-09-17] MEDS: METOCLOPRAMIDE 10 MG/2 ML INJ IV (23:49)
[2019-09-17] MEDS: KETOROLAC 30 MG/ML VIAL IV (23:51)
[2019-09-18] MEDS: OXYCODONE IR 5 MG TABLET PO ×2 (03:58→08:45)
[2019-09-18 06:07] LABS: Add Manual Diff / Slide Review NO; Basophils Absolute Auto 100 /uL (0-100); Basophils Percent Auto 1.1 % (0-2); Eosinophils Absolute Auto 100 /uL (0-450); Eosinophils Percent Auto 0.4 % (2-4); Hematocrit 29.7 % (36-46); Hemoglobin 10.3 g/dL (12.0-16.0); Lymphocytes Absolute Auto 1700 /uL (1100-4500); Mean Corpuscular HGB Conc 34.5 % (30-36); Mean Corpuscular Hemoglobin 30.8 PG (26-34); Mean Corpuscular Volume 89.1 fL (80-100); Monocytes Absolute Auto 800 /uL (0-900); Neutrophils Absolute Auto 10600 /uL (1500-7000); Neutrophils Percent Auto 79.5 % (50-75); Platelet Count 198 X10^3/uL (150-400); Red Blood Cell Count 3.33 X10^6/uL (4.0-5.2); Red Cell Distribution Width 13.9 % (11.6-14.8); White Blood Cell Count 13.4 X10^3/uL (4.5-11.0)
[2019-09-18] MEDS: KETOROLAC 30 MG/ML VIAL IV (06:35)
[2019-09-18] MEDS: DOCUSATE 250 MG CAPSULE PO (08:45)
--- NOTE | 2019-09-18 10:47 | P.PNOB_ITS ---
Subjective - OB Subjective Patient comments: no complaints, pain well controlled, incisional pain and tolerating diet Whitefish baby status: doing well and nursing well feeding status: exclusively breast feeding Narrative: This patient is a 28yo now POD#1 s/p her 3rd CS and BLTL, doing well this AM. Has voided, ambulated, tolerating PO, mild lochia, good pain control. Has not passed flatus, but feels rumbly and is not distended or in pain. Patient strongly desires discharge today. We discussed that without passage of flatus, she is not meeting goals, and that postop patients generally stay until POD#2. We discussed risks of discharge, symptoms to prompt return, and the usual postop precautions and follow up. The patient vocalized understanding, and we agreed to see how she's feeling this afternoon and early evening, with discharge on the table. Date Patient Seen: 09/18/19 Time Patient Seen: 10:52 Exam Vital Signs (past 8 hours): 113/71, HR 67, T 97.9F Oxygen Delivery Method Room Air Const General: cooperative, healthy appearing and comfortable Resp Effort & Inspection: normal respiratory effort Auscultation: clear to auscultation bilaterally Cardio Rate: regular rate Rhythm: regular rhythm GI Inspection: non-distended and obesity Palpation: soft and tender (mild, fundal) Other: incision c/d/i, fundus firm and well below u. Tympanic but minimal distention. Skin General: no rashes or lesions noted Objective Labs Result Diagrams: 09/18/19 05:55 Labs: Laboratory Results - last 24 hr 09/17/19 09/17/19 09/18/19 13:48 13:48 05:55 WBC 11.8 H 13.4 H RBC 3.81 L 3.33 L Hgb 11.6 L 10.3 L Hct 33.9 L 29.7 L MCV 89.0 89.1 MCH 30.4 30.8 MCHC 34.2 34.5 RDW 14.0 13.9 Plt Count 225 198 Neut % (Auto) 73.6 79.5 H Lymph % (Auto) 20.8 L 13.0 L Bartholomew % (Auto) 4.6 6.0 Eos % (Auto) 0.2 L 0.4 L Baso % (Auto) 0.8 1.1 Neut # (Auto) 8700 H 33950 H Lymph # (Auto) 2400 1700 Bartholomew # (Auto) 500 800 Eos # (Auto) 0 100 Baso # (Auto) 100 100 Blood Type O Positive Antibody Screen Negative Assessment & Plan Assessment and Plan (1) delivery delivered: Status: Acute Current Visit: Yes Plan day: 1 plan OB: routine postop care Comments: This patient is a 28yo now , POD#1 s/p repeat CS and BLTL in the setting of early labor. The patient is recovering appropriately given her CS yesterday afternoon, and is highly motivated to go home today. We discussed risks and benefits as above, but her hgb drop is appropriate, vitals are stable, and she is meeting postop goals appropriately for POD#1. We discussed postop goals, precautions, and follow up, and will reassess later in the day. Time Spent With Patient Time: Total time spent is greater than 50% in coordination of care (as documented) at patient's floor/unit and/or counseling patient: Time with patient: 15-24 minutes
--- NOTE | 2019-09-18 10:56 | P.DS_ITS ---
Discharge Providers Provider Date of admission: 09/17/19 08:03 Discharge Date: 09/18/19 Consults: 09/17/19 19:10 Consult to Optical Model Maker And Tester Routine Comment: Discharge provider: Shakira Garcia MD Summary Hospital Course Date Patient Seen: 09/18/19 Time Patient Seen: 08:53 Procedures: repeat section and bilateral tubal ligation Hospital Course: This patient presented in early labor with a history of 2 prior CS, and was taken for repeat section and bilateral tubal ligation. Her procedure was uncomplicated, and her course uneventful. The patient adamantly desired discharge on POD#1, and was meeting postoperative goals appropriately. She was discharged with routine precautions and follow up. Peripartum Data Infant Delivery Method: Section complications: none Apollo 1: Gender: Male Disposition of : home Discharge Diagnosis (1) delivery delivered: Status: Acute Status at Discharge Cognitive/behavioral status at discharge: oriented Functional status at discharge: independent ambulation Overall status at discharge: patient is progressing back to baseline Time Spent with Patient Time attestation: Total time spent providing and/or coordinating discharge services: Time spent: Greater than 30 minutes Objective Labs Result Diagrams: 09/18/19 05:55 Labs: Laboratory Results - last 24 hr 09/17/19 09/17/19 09/18/19 13:48 13:48 05:55 WBC 11.8 H 13.4 H RBC 3.81 L 3.33 L Hgb 11.6 L 10.3 L Hct 33.9 L 29.7 L MCV 89.0 89.1 MCH 30.4 30.8 MCHC 34.2 34.5 RDW 14.0 13.9 Plt Count 225 198 Neut % (Auto) 73.6 79.5 H Lymph % (Auto) 20.8 L 13.0 L Otero % (Auto) 4.6 6.0 Eos % (Auto) 0.2 L 0.4 L Baso % (Auto) 0.8 1.1 Neut # (Auto) 8700 H 27689 H Lymph # (Auto) 2400 1700 [place] # (Auto) 500 800 Eos # (Auto) 0 100 Baso # (Auto) 100 100 Blood Type O Positive Antibody Screen Negative Exam Vital Signs (past 8 hours): Oxygen Delivery Method Room Air Discharge Plan Discharge Plan Patient Disposition: Home Discharge orders & Medications Prescriptions: New docusate sodium 100 mg capsule 100 mg PO BID Qty: 60 RF: 1 oxycodone 5 mg tablet 5 mg PO Q6H PRN (Reason: pain) Qty: 20 RF: 0 ibuprofen 600 mg tablet 600 mg PO Q8H PRN (Reason: section) Qty: 20 RF: 0 acetaminophen 325 mg tablet 650 mg PO Q6H PRN (Reason: delivery) Qty: 30 RF: 0 Continued (DME) nebulizer and compressor Device See Rx Instructions .ROUTE .MEDSUPPLY Qty: 1 RF: 0 (DME) nebulizer accessories Kit See Rx Instructions .ROUTE .MEDSUPPLY Qty: 1 RF: 0 albuterol sulfate 90 mcg/actuation HFA aerosol inhaler 1 puff Inhalation PRN PRN (Reason: Shortness Of Breath) RF: 0 budesonide-formoterol 160-4.5 mcg/actuation HFA aerosol inhaler 1 puff Inhalation DIRECTED RF: 0 albuterol sulfate 2.5 mg /3 mL (0.083 %) solution for nebulization 2.5 mg INHALATION Q4H PRN (Reason: shortness of breath or wheezing) Qty: 75 RF: 0 Follow up/Referrals: Guzman Beth MD [Physician] - 1 Week (incision check To call [phone] to make an appointment to see Dr Beth in one week) Diet/Activity/Treatments Diet: Regular Activity: Nothing in the vagina for 6 weeks. Avoid lifting more than 10 pounds for 6 weeks. If you have increasing bleeding, fevers, chills, nausea, vomiting, headaches, or any other symptoms or concerns, call the clinic number or come to the emergency room. Skin/Wound/Dressing Care Report to your healthcare provider any signs of infection, such as:: chills, fever, night sweats, increased pain, unusual drainage and unusual redness Visit Report/Discharge Packet Instructions: DI for Stand Alone Forms: Discharge: Care Discharges patient from system. Discharge Date/Time: 09/18/19 19:05
[2019-09-18 18:11] VITALS: BP 116/77; PULSE 62; RESP 18; TEMP 36.2
== END 2019-09-18 19:05 | disposition home or self-care (01) | DRG 540 ==
PROVIDERS: Obstetrics & Gynecology; Admitting Provider Specialist; Referring Provider Specialist; Visit Provider Specialist
PROC: 10D00Z1 Extraction of Products of Conception, Low, Open Approach (ICD-10-PCS; CPT 59514; principal; 2019-09-17 16:40)
DX: O34.219 Maternal care for unspecified type scar from previous cesarean delivery (principal); O40.3XX0 Polyhydramnios, third trimester, not applicable or unspecified; O60.14X0 Preterm labor third trimester with preterm delivery third trimester, not applicable or unspecified; Z3A.37 37 weeks gestation of pregnancy; Z37.0 Single live birth; Z30.2 Encounter for sterilization; J45.909 Unspecified asthma, uncomplicated
CPT/HCPCS: 36415; 58611; 59025; 59050; 59514; 76815; 76819; 81003; 85025; 86850; 86900; 86901; G0379; J0690; J1885; J2274; J2405; J2590; J2765

== ENCOUNTER → 2019-09-20 10:58 | Outpatient (CLI) | payer OTHER, MEDICAID, SELFPAY ==
[2019-09-20 12:38] LABS: Add Manual Diff / Slide Review NO; Basophils Absolute Auto 100 /uL (0-100); Basophils Percent Auto 0.9 % (0-2); Eosinophils Absolute Auto 300 /uL (0-450); Eosinophils Percent Auto 2.8 % (2-4); Hematocrit 29.7 % (36-46); Hemoglobin 10.1 g/dL (12.0-16.0); Lymphocytes Absolute Auto 2200 /uL (1100-4500); Lymphocytes Percent Auto 22.2 % (25-40); Mean Corpuscular HGB Conc 34.1 % (30-36); Mean Corpuscular Hemoglobin 30.9 PG (26-34); Mean Corpuscular Volume 90.5 fL (80-100); Monocytes Absolute Auto 600 /uL (0-900); Monocytes Percent Auto 6.5 % (3-14); Neutrophils Absolute Auto 6700 /uL (1500-7000); Neutrophils Percent Auto 67.6 % (50-75); Platelet Count 258 X10^3/uL (150-400); Red Blood Cell Count 3.29 X10^6/uL (4.0-5.2); Red Cell Distribution Width 14.2 % (11.6-14.8); White Blood Cell Count 9.9 X10^3/uL (4.5-11.0)
== END ==
PROVIDERS: Referring Provider Family Medicine; Visit Provider Family Medicine
DX: R10.9 Unspecified abdominal pain (principal)
CPT/HCPCS: 36415; 85025

== ENCOUNTER 2020-03-21 10:37 | Emergency (ER) | payer OTHER, MEDICAID, SELFPAY ==
[2020-03-21 10:40] VITALS: BP 144/73; PULSE 69; RESP 14; TEMP 36.9; O2SAT 100; BMI 30.5
[2020-03-21 11:28] LABS: Add Manual Diff / Slide Review NO; Basophils Absolute Auto 100 /uL (0-100); Basophils Percent Auto 1.2 % (0-2); Eosinophils Absolute Auto 400 /uL (0-450); Eosinophils Percent Auto 5.9 % (2-4); Hemoglobin 14.9 g/dL (12.0-16.0); Lymphocytes Absolute Auto 2400 /uL (1100-4500); Lymphocytes Percent Auto 34.5 % (25-40); Mean Corpuscular HGB Conc 33.9 % (30-36); Mean Corpuscular Hemoglobin 30.9 PG (26-34); Mean Corpuscular Volume 91.3 fL (80-100); Monocytes Absolute Auto 500 /uL (0-900); Monocytes Percent Auto 6.6 % (3-14); Neutrophils Absolute Auto 3700 /uL (1500-7000); Neutrophils Percent Auto 51.8 % (50-75); Platelet Count 227 X10^3/uL (150-400); Red Blood Cell Count 4.82 X10^6/uL (4.0-5.2); White Blood Cell Count 7.1 X10^3/uL (4.5-11.0)
[2020-03-21 11:32] VITALS: PULSE 78; RESP 16; O2SAT 99
[2020-03-21 11:35] LABS: INR 0.9 (0.9-1.3); Prothrombin Time 10.8 SECONDS (10.1-12.7)
[2020-03-21 11:37] LABS: PTT Partial Thromboplastin Tim 37 SECONDS (26.4-36.2)
--- NOTE | 2020-03-21 11:37 | PC.NURSE ---
patient complains of burning sensations in her lower abdomen with point tenderness in her left lower quadrant. She also complains of back pain in her lower right sacral spinal region with radiating pain down to her right leg with numbness in her toes.
[2020-03-21 11:39] LABS: Alanine Aminotransferase 16 IU/L (<35); Albumin 4.9 g/dL (3.5-5.0); Albumin Globulin Ratio 1.7 (1.0-2.8); Alkaline Phosphatase 80 U/L (38-126); Aspartate Aminotransferase 24 IU/L (14-36); BUN Creatinine Ratio 13.5 (6-22); Bilirubin Total 0.6 mg/dL (0.2-1.3); Blood Urea Nitrogen 10 mg/dL (7-17); Calcium 9.6 mg/dL (8.4-10.2); Carbon Dioxide 26 mmol/L (22-32); Chloride 107 mmol/L (98-107); Estimated Glomerular Filt Rate > 60.0 mL/min (>60); Globulin 2.9 g/dL (1.7-4.1); Glucose 106 mg/dL (70-100); HEMOLYSIS < 15 (0-50); Lipase 135 U/L (23-300); Potassium 4.1 mmol/L (3.4-5.1); Sodium 141 mmol/L (137-145); Total Protein 7.8 g/dL (6.3-8.2)
--- NOTE | 2020-03-21 12:54 | DI.CT.S_ITS ---
PROCEDURE: CT ABDOMEN PELVIS W CON INDICATIONS: LLQ pain with guarding TECHNIQUE: After the administration of intravenous contrast, 5 mm thick sections acquired from the diaphragm to the symphysis. 5 mm coronal and sagittal reformats were acquired. For radiation dose reduction, the following was used: automated exposure control, adjustment of mA and/or kV according to patient size. COMPARISON: None. FINDINGS: Image quality: Excellent. ABDOMEN: Lung bases: Lung bases are clear. Heart size is normal. Solid organs: Liver is normal in size and enhancement. Gallbladder is unremarkable. Biliary system is non dilated. Pancreas enhances normally. Spleen is normal in size and enhancement. No adrenal nodules. Kidneys demonstrate normal size and enhancement, without hydronephrosis. Peritoneum and bowel: Trace thickening of the descending colon with some adjacent fat stranding near the junction with the sigmoid. No significant diverticulosis. No findings of diverticulitis. No abnormally dilated loop of bowel. Nondilated appendix. Nodes and vessels: No retroperitoneal or mesenteric adenopathy by size criteria. Aorta and inferior vena cava are normal in size. Miscellaneous: No ventral hernias. PELVIS: Genitourinary: The small volume intermediate density free pelvic fluid. Bilateral ovarian/adnexal hypodensities likely cysts. Uterus unremarkable. Miscellaneous: No inguinal hernias or adenopathy. Bones: No suspicious bony lesions. No vertebral body compression fractures. IMPRESSION: Trace thickening of the descending colon with some subtle fat stranding. Findings are likely infectious/inflammatory colitis. Diverticulitis is not favored as there is no regional diverticulum noted. Bilateral low-density adnexal lesions likely cysts. Small volume intermediate density fluid in the pelvis likely physiologic. Dictated by: Michael Ribera M.D. on 03/21/2020 at 13:24 Approved by: Michael Ribera M.D. on 03/21/2020 at 13:27
--- NOTE | 2020-03-21 12:56 | ED.ABDPAIN ---
HPI - Abdominal Pain <Yusra Woo PA-C - Last Filed: 03/21/20 15:20> General Chief Complaint: Abdominal Pain Stated Complaint: 6 months post-partem/bad cramping Time Seen by Provider: 03/21/20 12:34 Source: patient Mode of arrival: Ambulatory Limitations: no limitations History of Present Illness HPI narrative: Rhiannon is a 29-year-old female who is a former smoker presents to the ED complaining of abdominal pain/back pain x2 days. She also reports that she has had some diarrhea for the last couple days as well. She denies any nausea or vomiting. She denies blood or mucus in stool. She denies others having similar symptoms. She reports some urinary frequency. She denies burning with urination or urgency. She reports having history of 4 C sections in the past. The last 1 was an emergency 6 months ago performed at [facility]. She explains that she is having a constant burning abdominal pain. She reports that nothing makes it worse, but it is relieved with bowel movement. She reports some numbness in her left toes. She reports back pain on the right lower side. She reports some vaginal discharge similar to when she is ovulating. She explains that she has not had her menstrual cycle since giving . She is . She usually takes Tylenol for pain but has not recently. She reports being screened for STIs a few months ago and was negative. She reports that she last ate yesterday. She explains that she had water and coffee this morning prior to coming in to the ED. Related Data Home Medications Medication Instructions Recorded Confirmed albuterol sulfate 1 puff INHALATION PRN PRN 08/07/18 09/25/19 budesonide-formoterol 1 puff INHALATION DIRECTED 08/07/18 09/25/19 Previous Rx's Medication Instructions Recorded albuterol sulfate 2.5 mg INHALATION Q4H PRN #75 ml 03/28/19 nebulizer accessories #1 each 04/02/19 nebulizer and compressor #1 each 04/02/19 acetaminophen 650 mg PO Q6H PRN #30 tab 09/18/19 docusate sodium 100 mg PO BID #60 cap 09/18/19 ibuprofen 600 mg PO Q8H PRN #20 tab 09/18/19 oxycodone 5 mg PO Q6H PRN #20 tab 09/18/19 prednisone 40 mg PO DAILY 5 Days #10 tab 03/21/20 Allergies Allergy/AdvReac Type Severity Reaction Status Date / Time latex Allergy Mild rash Verified 03/21/20 10:47 gluten AdvReac Intermediate GI issues Verified 03/21/20 10:47 : lots of abdominal pain omeprazole AdvReac Unknown fatigue,AMS Verified 03/21/20 10:47 ,SOB Review of Systems <Yusra Woo PA-C - Last Filed: 03/21/20 15:20> Review of Systems Narrative: GENERAL: DENIES CHILLS, FATIGUE, MALAISE, FEVER, SWEATS. RESPIRATORY: DENIES DYSPNEA, COUGH, WHEEZING CARDIOVASCULAR: DENIES CHEST PAIN GASTROINTESTINAL: SEE HPI : SEE HPI MUSCULOSKELETAL: SEE HPI SKIN: DENIES RASH, SKIN LESIONS, OR OTHER NEUROLOGIC: DENIES WEAKNESS, HEADACHE PSYCHIATRIC: NO CONCERNING PSYCHOSOCIAL ISSUES. 12 POINT REVIEW OF SYSTEMS IS NEGATIVE EXCEPT FOR THOSE STATED ABOVE Constitutional Constitutional: Denies body ache(s), Denies chills, Reports fatigue and Denies fever(s) Genitourinary Genitourinary: Denies hematuria, Denies dysuria, Reports urinary frequency and Denies urinary urgency Genitourinary: Reports amenorrhea, Denies hematuria, Reports urinary frequency, Denies dysuria and Denies urinary urgency Musculoskeletal Musculoskeletal: Reports back pain Endocrine Endocrine: Reports fatigue Patient History <Yusra Woo PA-C - Last Filed: 03/21/20 15:20> Medical History (Updated 03/21/20 @ 13:50 by Yusra Woo PA-C) ADHD Anxiety Asthma Hydrops fetalis in third trimester, antepartum Patient denies significant medical history Post traumatic stress disorder (PTSD) UTI (urinary tract infection) Vertigo (~2018) Vitiligo Vomiting blood Surgical History Anesthesia H/O wisdom tooth extraction History of section Social History marital status: unmarried,single Smoking Status: Former smoker Smoking Status: Former smoker alcohol intake frequency: holidays/special occasions only Substance Use Type: does not use Exam <Yusra Woo PA-C - Last Filed: 03/21/20 15:20> Initial Vital Signs Initial Vital Signs: Vital Signs Temperature 98.5 F 03/21/20 10:40 Pulse Rate 69 03/21/20 10:40 Respiratory Rate 14 03/21/20 10:40 Blood Pressure 144/73 H 03/21/20 10:40 Pulse Oximetry 100 03/21/20 10:40 Const General: cooperative, healthy appearing and comfortable [facility] Head: normal to inspection Ears: hearing grossly normal bilaterally and external ears normal Nose: external nose normal Eyes Eyelids: eyelids normal Conjunctivae: conjunctivae normal Sclera: sclerae normal Resp Effort & Inspection: normal respiratory effort and able to speak in complete sentences Auscultation: clear to auscultation bilaterally and no wheezes Cardio Rate: regular rate Rhythm: regular rhythm Heart Sounds: S1 normal, S2 normal and no murmurs GI Palpation: soft, guarding (LLQ pain), No mass, No rigid and tender (LLQ ) Auscultation: normal bowel sounds General: No CVA tenderness Back/Spine/Pelvis Thoracic/Lumbar Spine: No paraspinal tenderness Extrem General: normal to inspection Psych Appearance: grossly normal Mental Status: mental status grossly normal Speech and Movement: speech and movement normal <Marlene Gomes DO - Last Filed: 03/21/20 19:33> Initial Vital Signs Initial Vital Signs: Vital Signs Temperature 98.5 F 03/21/20 10:40 Pulse Rate 69 03/21/20 10:40 Respiratory Rate 14 03/21/20 10:40 Blood Pressure 144/73 H 03/21/20 10:40 Pulse Oximetry 100 03/21/20 10:40 Scores <Yusra Woo PA-C - Last Filed: 03/21/20 15:20> GCS Ignacia coma scale eye opening: Spontaneous Ignacia coma scale verbal response: Orientated Moro coma scale motor response: Obey commands Ignacia coma scale total score: 15 Course <VALERIA Velásquez Last Filed: 03/21/20 15:20> Course Course Narrative: 1300: reviewed labwork, evaluated pt which showed guarding in the LLQ, CT ordered 1350: CT showed colitis, pt was informed, discussed treatment with prednisone and f/u with PCP for ovarian cysts and to discuss diagnosis, return precautions provided Orders Ordered: ED Orders 03/21/20 10:50 EKG-12 Lead Stat 03/21/20 11:13 Complete Blood Count AUTO DIFF Stat Comprehensive Metabolic Panel Stat Lipase Stat Partial Thromboplastin Time Stat Prothrombin Time INR Stat 03/21/20 12:54 CT abdomen pelvis w con Stat Reevaluation(s) Reevaluation #1: Marlene Jewell [employer] HAND Time: 13:00 Vital Signs Vital signs: Vital Signs - 8 hr 03/21/20 14:12 03/21/20 14:34 Pulse Rate 56 L 75 Respiratory Rate 15 14 Blood Pressure 132/70 113/63 Pulse Oximetry 98 98 <Marlene Gomes DO - Last Filed: 03/21/20 19:33> Orders Ordered: ED Orders 03/21/20 10:50 EKG-12 Lead Stat 03/21/20 11:13 Complete Blood Count AUTO DIFF Stat Comprehensive Metabolic Panel Stat Lipase Stat Partial Thromboplastin Time Stat Prothrombin Time INR Stat 03/21/20 12:54 CT abdomen pelvis w con Stat Vital Signs Vital signs: Vital Signs - 8 hr 03/21/20 14:12 03/21/20 14:34 Pulse Rate 56 L 75 Respiratory Rate 15 14 Blood Pressure 132/70 113/63 Pulse Oximetry 98 98 MDM - Abdominal Pain <Yusra Woo PA-C - Last Filed: 03/21/20 15:20> Differential Diagnosis Differential diagnosis: Likely abdominal pain, acute appendicitis and diverticulitis Medical Records Attestation: I reviewed the patient's medical records. Lab Data Attestation: I reviewed the patient's lab results. Result diagrams: 03/21/20 11:13 03/21/20 11:13 Labs: Lab Results 03/21/20 03/21/20 03/21/20 Range/Units 11:13 11:13 11:13 WBC 7.1 (4.5-11.0) X10^3/uL RBC 4.82 (4.0-5.2) X10^6/uL Hgb 14.9 (12.0-16.0) g/dL Hct 44.0 (36-46) % MCV 91.3 (80-100) fL MCH 30.9 (26-34) PG MCHC 33.9 (30-36) % RDW 14.0 (11.6-14.8) % Plt Count 227 (150-400) X10^3/uL Neut % (Auto) 51.8 (50-75) % Lymph % (Auto) 34.5 (25-40) % [place] % (Auto) 6.6 (3-14) % Eos % (Auto) 5.9 H (2-4) % Baso % (Auto) 1.2 (0-2) % Neut # (Auto) 3700 (4845-9140) /uL Lymph # (Auto) 2400 (7400-9225) /uL [place] # (Auto) 500 (0-900) /uL Eos # (Auto) 400 (0-450) /uL Baso # (Auto) 100 (0-100) /uL PT 10.8 (10.1-12.7) SECONDS INR 0.9 (0.9-1.3) APTT 37 H (26.4-36.2) SECONDS Sodium 141 (137-145) mmol/L Potassium 4.1 (3.4-5.1) mmol/L Chloride 107 (98-107) mmol/L Carbon Dioxide 26 (22-32) mmol/L BUN 10 (7-17) mg/dL Creatinine 0.74 (0.52-1.04) mg/dL Estimated GFR > 60.0 (>60) mL/min BUN/Creatinine Ratio 13.5 (6-22) Glucose 106 H (70-100) mg/dL Calcium 9.6 (8.4-10.2) mg/dL Total Bilirubin 0.6 (0.2-1.3) mg/dL AST 24 (14-36) IU/L ALT 16 (<35) IU/L Alkaline Phosphatase 80 (38-126) U/L Total Protein 7.8 (6.3-8.2) g/dL Albumin 4.9 (3.5-5.0) g/dL Globulin 2.9 (1.7-4.1) g/dL Albumin/Globulin Ratio 1.7 (1.0-2.8) Lipase 135 (23-300) U/L Point of care testing: Point of Care Testing Test Results Negative Urine Dip Bedside Urine Glucose Negative Bedside Urine Bilirubin - Negative Bedside Urine Ketone - Negative Urine Specific [place] 1.010 Bedside Urine Occult Blood - Negative Bedside Urine pH 7.5 Bedside Urine Protein - Negative Bedside Urine Urobilinogen - Negative Bedside Urine Nitrite - Negative Bedside Urine Leukocytes - Negative Esterase Imaging Data CT scan - abdomen/pelvis: Radiologist's Impression: [address], [place] [id number] Scan ReportSigned Patient: Rhiannon Linton CMR#: [id number]: 1990Acct:[id number]/Sex: 29 / FDate of Service: 03/21/20Loc: EDAccession Number: [id number] Procedure: CT abdomen pelvis w con Ordering Provider: Yusra Woo P.A-C PROCEDURE: CT ABDOMEN PELVIS W CON INDICATIONS: LLQ pain with guarding TECHNIQUE: After the administration of intravenous contrast, 5 mm thick sections acquired from the diaphragm to the symphysis. 5 mm coronal and sagittal reformats were acquired. For radiation dose reduction, the following was used: automated exposure control, adjustment of mA and/or kV according to patient size. COMPARISON: None. FINDINGS: Image quality: Excellent. ABDOMEN: Lung bases: Lung bases are clear. Heart size is normal. Solid organs: Liver is normal in size and enhancement. Gallbladder is unremarkable. Biliary system is non dilated. Pancreas enhances normally. Spleen is normal in size and enhancement. No adrenal nodules. Kidneys demonstrate normal size and enhancement, without hydronephrosis. Peritoneum and bowel: Trace thickening of the descending colon with some adjacent fat stranding near the junction with the sigmoid. No significant diverticulosis. No findings of diverticulitis. No abnormally dilated loop of bowel. Nondilated appendix. Nodes and vessels: No retroperitoneal or mesenteric adenopathy by size criteria. Aorta and inferior vena cava are normal in size. Miscellaneous: No ventral hernias. PELVIS: Genitourinary: The small volume intermediate density free pelvic fluid. Bilateral ovarian/adnexal hypodensities likely cysts. Uterus unremarkable. Miscellaneous: No inguinal hernias or adenopathy. Bones: No suspicious bony lesions. No vertebral body compression fractures. IMPRESSION: Trace thickening of the descending colon with some subtle fat stranding. Findings are likely infectious/inflammatory colitis. Diverticulitis is not favored as there is no regional diverticulum noted. Bilateral low-density adnexal lesions likely cysts. Small volume intermediate density fluid in the pelvis likely physiologic. Dictated by: Michael Ribera M.D. on 03/21/2020 at 13:24 Approved by: Michael Ribera M.D. on 03/21/2020 at 13:27 [facility] Narrative Medical decision making narrative: Patient came in complaining of left lower quadrant abdominal pain x2 days. She also reporting having diarrhea. She denied nausea or vomiting. She denied having period since giving 6 months. Considered PID but since patient's labwork was normal, did not feel this type of workup was necessary at this time. Due to tenderness in the left lower quadrant and some guarding noted on exam, CT of abdomen and pelvis was performed. Inflammatory colitis identified. No evidence of diverticulitis. Patient also had bilateral adnexal cysts. Since white count was not elevated and patient was afebrile, nontachycardic, non tachypneic in office today, this does not support an active bacterial infection at this time. Patient has been started on prednisone to treat for inflammation. Pt deferred wanting pelvic U/S at this time to look closer at the ovarian cysts. She is to f/u with PCP to discuss diagnosis and for further evaluation of her ovarian cysts. Pt understands and agrees with current treatment plan. <Marlene Gomes, DO - Last Filed: 03/21/20 19:33> Lab Data Labs: Lab Results 03/21/20 03/21/20 03/21/20 Range/Units 11:13 11:13 11:13 WBC 7.1 (4.5-11.0) X10^3/uL RBC 4.82 (4.0-5.2) X10^6/uL Hgb 14.9 (12.0-16.0) g/dL Hct 44.0 (36-46) % MCV 91.3 (80-100) fL MCH 30.9 (26-34) PG MCHC 33.9 (30-36) % RDW 14.0 (11.6-14.8) % Plt Count 227 (150-400) X10^3/uL Neut % (Auto) 51.8 (50-75) % Lymph % (Auto) 34.5 (25-40) % [place] % (Auto) 6.6 (3-14) % Eos % (Auto) 5.9 H (2-4) % Baso % (Auto) 1.2 (0-2) % Neut # (Auto) 3700 (5210-6101) /uL Lymph # (Auto) 2400 (1540-7699) /uL [place] # (Auto) 500 (0-900) /uL Eos # (Auto) 400 (0-450) /uL Baso # (Auto) 100 (0-100) /uL PT 10.8 (10.1-12.7) SECONDS INR 0.9 (0.9-1.3) APTT 37 H (26.4-36.2) SECONDS Sodium 141 (137-145) mmol/L Potassium 4.1 (3.4-5.1) mmol/L Chloride 107 (98-107) mmol/L Carbon Dioxide 26 (22-32) mmol/L BUN 10 (7-17) mg/dL Creatinine 0.74 (0.52-1.04) mg/dL Estimated GFR > 60.0 (>60) mL/min BUN/Creatinine Ratio 13.5 (6-22) Glucose 106 H (70-100) mg/dL Calcium 9.6 (8.4-10.2) mg/dL Total Bilirubin 0.6 (0.2-1.3) mg/dL AST 24 (14-36) IU/L ALT 16 (<35) IU/L Alkaline Phosphatase 80 (38-126) U/L Total Protein 7.8 (6.3-8.2) g/dL Albumin 4.9 (3.5-5.0) g/dL Globulin 2.9 (1.7-4.1) g/dL Albumin/Globulin Ratio 1.7 (1.0-2.8) Lipase 135 (23-300) U/L Point of care testing: Point of Care Testing Test Results Negative Urine Dip Bedside Urine Glucose Negative Bedside Urine Bilirubin - Negative Bedside Urine Ketone - Negative Urine Specific [place] 1.010 Bedside Urine Occult Blood - Negative Bedside Urine pH 7.5 Bedside Urine Protein - Negative Bedside Urine Urobilinogen - Negative Bedside Urine Nitrite - Negative Bedside Urine Leukocytes - Negative Esterase Discharge Plan Departure Patient Disposition: Home Clinical Impression: Colitis Instructions: DI for Abdominal Pain-Adult, DI for Colitis Activity Restrictions/Additional Instructions: Thank you for entrusting me with the care today. As discussed, the likely source of her pain is colitis. We are treating you with prednisone today. Any evidence of worsening such is increasing abdominal pain, nausea, and vomiting, or weakness, please return to the ED at that time. Please follow-up with your primary care to discuss your diagnosis and ovarian cysts. Please hold off on breast-feeding for 4 hours after taking doses of prednisone. Prescriptions: New prednisone 20 mg tablet 40 mg PO DAILY 5 Days Qty: 10 RF: 0 No Action (DME) nebulizer and compressor Device See Rx Instructions .ROUTE .MEDSUPPLY Qty: 1 RF: 0 (DME) nebulizer accessories Kit See Rx Instructions .ROUTE .MEDSUPPLY Qty: 1 RF: 0 albuterol sulfate 90 mcg/actuation HFA aerosol inhaler 1 puff Inhalation PRN PRN (Reason: Shortness Of Breath) RF: 0 budesonide-formoterol 160-4.5 mcg/actuation HFA aerosol inhaler 1 puff Inhalation DIRECTED RF: 0 albuterol sulfate 2.5 mg /3 mL (0.083 %) solution for nebulization 2.5 mg INHALATION Q4H PRN (Reason: shortness of breath or wheezing) Qty: 75 RF: 0 docusate sodium 100 mg capsule 100 mg PO BID Qty: 60 RF: 1 oxycodone 5 mg tablet 5 mg PO Q6H PRN (Reason: pain) Qty: 20 RF: 0 ibuprofen 600 mg tablet 600 mg PO Q8H PRN (Reason: section) Qty: 20 RF: 0 acetaminophen 325 mg tablet 650 mg PO Q6H PRN (Reason: delivery) Qty: 30 RF: 0 <Marlene Gomes DO - Last Filed: 03/21/20 19:33> Cosign ED Attending Cosignature Attestation: I was immediately available in the department for consultation. This documentation has been reviewed and I agree with assessment and plan. Supervised by Marlene Gomes DO
[2020-03-21 14:12] VITALS: BP 132/70; PULSE 56; RESP 15; O2SAT 98
[2020-03-21 14:34] VITALS: BP 113/63; PULSE 75; RESP 14; O2SAT 98
== END 2020-03-21 14:35 | disposition home or self-care (01) ==
PROVIDERS: Emergency Medicine; Emergency Provider Physician Assistant
DX: K52.9 Noninfective gastroenteritis and colitis, unspecified (principal)
CPT/HCPCS: 36415; 74177; 80053; 81003; 81025; 83690; 85025; 85610; 85730; 93005; 93010; 99284; Q9967

== ENCOUNTER → 2020-03-25 14:34 | Outpatient (CLI) | payer OTHER, MEDICAID, SELFPAY ==
--- NOTE | 2020-03-25 14:36 | DI.US.S_ITS ---
PROCEDURE: US PELVIC COMPLETE INDICATIONS: ABNORMAL CT TECHNIQUE: Real-time scanning was performed of the pelvic organs, with image documentation. Additional endovaginal scanning was necessary due to incomplete visualization of the adnexal and endometrial structures by transabdominal scanning. COMPARISON: [facility], CT, CT ABDOMEN PELVIS W CON, 03/21/2020, 13:10. FINDINGS: Transabdominal scanning: Limited scanning through the kidneys shows no hydronephrosis. No pathologic free abdominal or pelvic fluid. Endovaginal scanning: Uterus: Uterus is normal in size at 8.9 x 7.0 x 4.1 cm. The endometrium measures 3.1 mm in combined thickness. Endocervical fluid present. Ovaries: Right ovary measures 3.7 x 2.4 x 2.1 cm and the left 4.3 x 3.5 x 2.2 cm. Greater than 12 sub 5 mm follicular cysts present bilaterally. IMPRESSION: Greater than 12 sub-5 mm follicular cysts bilaterally which can be associated with polycystic ovarian syndrome. Dictated by: Yovany FAJARDO Interpreted: Fadumo Meraz MD on 03/25/2020 at 15:42 Approved by: Fadumo Meraz M.D. on 03/25/2020 at 17:28
== END ==
PROVIDERS: PCP Family Medicine; Referring Provider Family Medicine; Visit Provider Family Medicine
DX: R93.5 Abnormal findings on diagnostic imaging of other abdominal regions, including retroperitoneum (principal); N83.02 Follicular cyst of left ovary; N83.01 Follicular cyst of right ovary
CPT/HCPCS: 76856

== ENCOUNTER → 2020-04-21 08:52 | Outpatient (CLI) | payer OTHER, MEDICAID, SELFPAY ==
--- NOTE | 2020-04-21 08:53 | DI.RAD.S_ITS ---
PROCEDURE: FL UPPER GI SERIES INDICATIONS: Persistent GERD symptoms COMPARISON: None. FINDINGS: KUB: Preprocedural healthcare financial analyst film demonstrates a normal bowel gas pattern. No suspicious abdominal calcifications. Visualized solid organ contours appear normal. Bony structures appear unremarkable. Esophagus: Esophageal mucosa is normal on air-contrast views. On single-contrast views, there is normal esophageal peristalsis. No strictures, extrinsic mass effects, or diverticula. No hiatal hernia or elicited gastroesophageal reflux. . Stomach: The stomach is normally distensible, with normal rugal fold thickness. No mucosal masses or ulcers. Pylorus and duodenal bulb appear normal in morphology. Duodenal folds are normal in thickness as well. IMPRESSION: Normal examination, source of current symptoms is not seen. The patient reports longstanding abdominal pain syndrome. Depending on the clinical status follow-up by CT scanning may become necessary. Dictated by: Tomer Gutierrez M.D. on 04/21/2020 at 12:03 Approved by: Tomer Gutierrez M.D. on 04/21/2020 at 12:04
== END ==
PROVIDERS: PCP Family Medicine; Referring Provider Family Medicine; Visit Provider Family Medicine
DX: K21.9 Gastro-esophageal reflux disease without esophagitis (principal)
CPT/HCPCS: 74246

== ENCOUNTER 2020-08-01 10:25 | Emergency (ER) | payer OTHER, MEDICAID, SELFPAY ==
--- NOTE | 2020-08-01 10:27 | DI.RAD.S_ITS ---
PpROCEDURE: XR KNEE RT 3V INDICATIONS: popped knee and swollen TECHNIQUE: Three views of the knee were acquired. COMPARISON: None. FINDINGS: Bones: No dislocations. No suspicious bony lesions. Soft tissues: Small suprapatellar joint effusion is present. There is a small non corticated osseous fragment in the infrapatellar anterior soft tissues which may be avulsion fracture. Donor site is not evident, but potentially atella. IMPRESSION: 1. Small joint effusion suggests internal derangement. 2. Possible avulsion fracture off the patella versus dystrophic calcification. 3. Consider MRI to detect acute internal derangement. Dictated by: Lorena Delacruz M.D. on 08/01/2020 at 9:54 Approved by: Lorena Delacruz M.D. on 08/01/2020 at 10:03
[2020-08-01 10:33] VITALS: BP 111/62; PULSE 81; RESP 12; TEMP 37.1; O2SAT 99
--- NOTE | 2020-08-01 10:37 | ED_ITS ---
HPI - General Adult General Chief complaint: Extremity Injury, Lower Stated complaint: popped right knee, swollen Time Seen by Provider: 08/01/20 10:27 Source: patient Mode of arrival: Wheelchair Limitations: no limitations History of Present Illness HPI narrative: Patient is a 29-year-old female here for evaluation of a right knee injury. States that yesterday she slipped on his sock and felt/heard a pop and since that time has been unable to bear weight. She has injured her knees in the past. She states she has a neurologic issue in her right lower extremity which causes some decreased sensation at baseline. She states that she is unsure if she fell after slipping on the sock. Related Data Home Medications Medication Instructions Recorded Confirmed prednisone 20 mg tablet 20 mg PO BID 03/27/20 03/31/20 Previous Rx's Medication Instructions Recorded albuterol sulfate 2.5 mg INHALATION Q4H PRN #75 ml 03/28/19 nebulizer accessories #1 each 04/02/19 nebulizer and compressor #1 each 04/02/19 albuterol sulfate 90 mcg/actuation 1 puff INHALATION PRN PRN #18 g 03/31/20 aerosol inhaler budesonide-formoterol HFA 160 1 puff INHALATION DIRECTED 03/31/20 mcg-4.5 mcg/actuation aerosol #10.2 g inhaler dicyclomine 10 mg capsule 10 mg PO BID PRN #30 cap 03/31/20 famotidine 40 mg tablet 40 mg PO BID #60 tab 03/31/20 Allergies Allergy/AdvReac Type Severity Reaction Status Date / Time latex Allergy Mild rash Verified 08/01/20 10:36 gluten AdvReac Intermediate GI issues Verified 08/01/20 10:36 : lots of abdominal pain omeprazole AdvReac Unknown fatigue,AMS Verified 08/01/20 10:36 ,SOB Review of Systems Constitutional Constitutional: Denies fatigue and Denies fever(s) Eyes Eyes: Denies change in vision Cardiovascular Cardiovascular: Denies chest pain and Denies dyspnea Respiratory Respiratory: Denies dyspnea Gastrointestinal Gastrointestinal: Denies abdominal pain Musculoskeletal Musculoskeletal: Reports arthralgias (Right knee pain), Denies back pain and Denies myalgias Comments: Right knee pain Integumentary/Breasts Comments: Bruising along the front of both of her lower extremities Neurologic Neurologic: Denies behavioral changes Comments: Decreased sensation along both of her legs but this is not new Psychiatric Psychiatric: Denies behavioral changes Endocrine Endocrine: Denies fatigue Hematologic/Lymphatic On Anticoagulants: No Allergic/Immunologic Allergic/Immunologic: Denies urticaria Patient History Medical History ADHD Anxiety Asthma GERD (gastroesophageal reflux disease) Hydrops fetalis in third trimester, antepartum Patient denies significant medical history Post traumatic stress disorder (PTSD) UTI (urinary tract infection) Vertigo (~2018) Vitiligo Vomiting blood Surgical History Anesthesia H/O wisdom tooth extraction History of section Social History marital status: unmarried,single Smoking Status: Former smoker Smoking Status: Former smoker alcohol intake frequency: holidays/special occasions only Substance Use Type: marijuana Exam Initial Vital Signs Initial Vital Signs: Vital Signs Temperature 98.8 F 08/01/20 10:33 Pulse Rate 81 08/01/20 10:33 Respiratory Rate 12 08/01/20 10:33 Blood Pressure 111/62 08/01/20 10:33 Pulse Oximetry 99 08/01/20 10:33 Const General: cooperative and comfortable HENMT Head: normal to inspection and normocephalic Resp Effort & Inspection: normal respiratory effort Cardio Rate: regular rate Pulses: dorsalis pedis present on the right GI Inspection: non-distended Skin Other: Multiple bruising in various stages of healing anterior tibial area is bilateral lower extremities Neuro Other: Patient reports decreased sensation to light touch around her right knee but this is not new Extrem Other: Patient does have a moderate effusion to her right knee compared to the left. She is able to do a straight leg raise. There is no deficit felt along the quadriceps tendon and the patella tendon. Her ACL MCL PCL and LCL all appear to be intact with functional testing. She does have tenderness along the lateral hamstring. No tenderness along the medial hamstring. She states ?I do not know? when asked if she is having pain along the medial joint line. No pain along the lateral joint line. Psych Appearance: well kempt Procedures Orthopedic Splinting/Casting Injury #1: Side: right Lower Extremity Injury Location: knee Lower Extremity Immobilizer: Umer wrap Other Orthopedic Equipment: crutches Post splinting neuro exam: no change Post splinting vascular exam: no change Placed by: Nursing Course Orders Ordered: ED Orders 08/01/20 10:27 XR knee RT 3V Stat Vital Signs Vital signs: Vital Signs - 8 hr 08/01/20 10:33 Temperature 98.8 F Pulse Rate 81 Respiratory Rate 12 Blood Pressure 111/62 Pulse Oximetry 99 Medical Decision Making Imaging Data Extremity x-ray #1: Radiologist's Impression: [address] [id number] ReportSigned Patient: Rhiannon Linton CMR#: [id number]: 1990Acct:[id number]/Sex: 29 / FDate of Service: 08/01/20Loc: EDAccession Number: [id number] Procedure: XR knee RT 3V Ordering Provider: Marty Tanner D.O. PpROCEDURE: XR KNEE RT 3V INDICATIONS: popped knee and swollen TECHNIQUE: Three views of the knee were acquired. COMPARISON: None. FINDINGS: Bones: No dislocations. No suspicious bony lesions. Soft tissues: Small suprapatellar joint effusion is present. There is a small non corticated osseous fragment in the infrapatellar anterior soft tissues which may be avulsion fracture. Donor site is not evident, but potentially atella. IMPRESSION: 1. Small joint effusion suggests internal derangement. 2. Possible avulsion fracture off the patella versus dystrophic calcification. 3. Consider MRI to detect acute internal derangement. Dictated by: Lorena Delacruz M.D. on 08/01/2020 at 9:54 Approved by: Lorena Delacruz M.D. on 08/01/2020 at 10:03 [facility] Narrative Medical decision making narrative: She does report decreased sensation to palpation to her right knee however this does not appear to be a new issue. She does have a joint effusion on the x-ray and this does correspond with her physical exam her ACL MCL PCL and LCL all seem to be intact with functional testing. She can do a straight leg raise in the does not seem to be any deficits in the quadriceps tendon nor the patella tendon. I would not be surprised if she does have a meniscus tear. The possible avulsion fracture off the patella is noted however she does not have any discomfort on the inferior portion of her patella. I discussed with her the findings on the x-ray. She was given an Umer bandage and crutches. She was given return precautions and follow-up instructions. She expressed understanding agreement. Discharge Plan Departure Patient Disposition: Home Clinical Impression: Effusion of knee joint right, Acute knee pain Instructions: How to Use Crutches, How To Perform RICE (Rest, Ice, Compress, Elevate), DI for Knee Effusion, How to Apply an Elastic Wrap on Knee Activity Restrictions/Additional Instructions: There were no definitive fractures noted on the x-ray so you can walk on your right leg as tolerated. Use the crutches for your comfort. I do recommend that you keep your knee elevated and iced. You can also take Tylenol and/or ibuprofen for any discomfort. Contact your primary provider for follow-up especially if your symptoms do not improve with time. Continue the rest of your medicine as directed. Return to the emergency department for any new symptoms Prescriptions: No Action (DME) nebulizer and compressor Device See Rx Instructions .ROUTE .MEDSUPPLY Qty: 1 RF: 0 (DME) nebulizer accessories Kit See Rx Instructions .ROUTE .MEDSUPPLY Qty: 1 RF: 0 prednisone 20 mg tablet 20 mg PO BID RF: 0 famotidine 40 mg tablet 40 mg PO BID Qty: 60 RF: 1 dicyclomine 10 mg capsule 10 mg PO BID PRN (Reason: Stomach cramps) Qty: 30 RF: 1 albuterol sulfate 90 mcg/actuation HFA aerosol inhaler 1 puff Inhalation PRN PRN (Reason: Shortness Of Breath) Qty: 18 RF: 1 budesonide-formoterol 160-4.5 mcg/actuation HFA aerosol inhaler 1 puff Inhalation DIRECTED Qty: 10.2 RF: 1 albuterol sulfate 2.5 mg /3 mL (0.083 %) solution for nebulization 2.5 mg INHALATION Q4H PRN (Reason: shortness of breath or wheezing) Qty: 75 RF: 0 Referrals: Giovanni No, [Primary Care Provider] -
[2020-08-01 11:48] VITALS: BP 122/75; PULSE 86; RESP 12; O2SAT 97
== END 2020-08-01 11:49 | disposition home or self-care (01) ==
PROVIDERS: Emergency Provider Emergency Medicine; PCP Family Medicine
DX: M25.561 Pain in right knee (principal); M25.461 Effusion, right knee; W18.40XA Slipping, tripping and stumbling without falling, unspecified, initial encounter
CPT/HCPCS: 73562; 99283

== ENCOUNTER → 2020-09-12 17:48 | Outpatient (CLI) | payer OTHER, MEDICAID, SELFPAY ==
--- NOTE | 2020-09-12 17:50 | DI.MRI.S_ITS ---
PROCEDURE: MR KNEE RT WO CON INDICATIONS: r twisting injury, knee pain. TECHNIQUE: Noncontrast sagittal PD fast spin echo and T2 fast spin echo with fat saturation, sagittal 3-D FLASH with fat saturation; coronal T1 spin echo and PD fast spin echo with fat saturation, and axial PD fast spin echo with fat saturation through the knee. COMPARISON: [facility], CR, XR KNEE RT 3V, 08/01/2020, 10:43. FINDINGS: Image quality: Excellent. Menisci: The medial and lateral menisci demonstrate normal morphology and internal signal. The meniscal root ligaments appear intact. Cruciate ligaments: There is moderate T2 signal elevation within the mid/superior aspect of the anterior cruciate ligament which demonstrates mild posterior bowing. Posterior cruciate ligament is intact. Medial structures: The medial collateral ligament appears intact. Visualized portions of the pes anserinus tendons appear normal. No abnormal bursal fluid. Lateral structures: The lateral collateral ligament, long and short heads of the biceps femoris tendon appear intact. The popliteus tendon appears normal. Iliotibial band appears normal. Anterior structures: The quadriceps and patellar tendons appear intact. Patellar alignment is normal. No femoral trochlear dysplasia or ventral trochlear prominence. Mild edema in the infrapatellar fat pad. Bones and cartilage: No displaced fracture. There is mild ill-defined T2 signal elevation within the posterior weight-bearing aspect of the lateral tibial plateau, consistent with contusion. Articular cartilage fibrillation overlies the patellar apex. Mild articular cartilage loss diffusely overlies the weight-bearing aspects of the medial femoral condyle and medial tibial plateau. Joint space: There is a moderate knee joint effusion. Small Hodge's cyst. Normal appearing synovial plicae are incidentally noted. IMPRESSION: 1. Partial-thickness anterior cruciate ligament tear. 2. Mild medial and patellofemoral compartment articular cartilage loss. 3. Knee joint effusion. Hodge's cyst. 4. Contusion within the lateral tibial plateau posteriorly. Dictated by: Mykel Tirado M.D. on 09/15/2020 at 8:43 Approved by: Mykel Tirado M.D. on 09/15/2020 at 8:45
== END ==
PROVIDERS: PCP Family Medicine; Referring Provider Family Medicine; Visit Provider Family Medicine
DX: M25.561 Pain in right knee (principal); S83.511A Sprain of anterior cruciate ligament of right knee, initial encounter; S80.01XA Contusion of right knee, initial encounter; M25.461 Effusion, right knee; M71.21 Synovial cyst of popliteal space [Baker], right knee; X50.0XXA Overexertion from strenuous movement or load, initial encounter
CPT/HCPCS: 73721

== ENCOUNTER 2020-11-14 17:03 | Emergency (ER) | payer OTHER, MEDICAID, SELFPAY ==
[2020-11-14 17:22] VITALS: BP 132/62; PULSE 97; RESP 18; TEMP 36.9; O2SAT 97; BMI 29.2
--- NOTE | 2020-11-14 17:27 | DI.RAD.S_ITS ---
PROCEDURE: XR FACIAL BONES MIN 3V INDICATIONS: GLF with bloody nose TECHNIQUE: 3 views of the facial bones were acquired. COMPARISON: None. FINDINGS: Sinuses: Visualized sinuses demonstrate no air-fluid levels or mucosal thickening. Bones: No fractures. No suspicious bony lesions. Orbital rims and zygomatic arches appear intact. Soft tissues: No suspicious soft tissue densities. IMPRESSION: Normal for age, source of current pain after trauma symptoms is not seen. Please note that CT scanning provides a more accurate assessment for facial trauma. Dictated by: Tomer Gutierrez M.D. on 11/14/2020 at 17:56 Approved by: Tomer Gutierrez M.D. on 11/14/2020 at 17:57
== END 2020-11-14 17:30 | disposition left against medical advice (07) ==
PROVIDERS: Emergency Provider Emergency Medicine; PCP Family Medicine
DX: S09.93XA Unspecified injury of face, initial encounter (principal); W19.XXXA Unspecified fall, initial encounter
CPT/HCPCS: 70150; 99283

== ENCOUNTER → 2021-01-19 10:23 | Outpatient (CLI) | payer OTHER, MEDICAID, SELFPAY ==
[2021-01-19 10:51] LABS: Add Manual Diff / Slide Review NO; Basophils Absolute Auto 100 /uL (0-100); Basophils Percent Auto 1.2 % (0-2); Eosinophils Absolute Auto 300 /uL (0-450); Eosinophils Percent Auto 3.5 % (2-4); Hematocrit 41.9 % (36-46); Hemoglobin 14.1 g/dL (12.0-16.0); Lymphocytes Absolute Auto 2800 /uL (1100-4500); Lymphocytes Percent Auto 31.7 % (25-40); Mean Corpuscular HGB Conc 33.7 % (30-36); Mean Corpuscular Hemoglobin 31.9 PG (26-34); Mean Corpuscular Volume 94.7 fL (80-100); Monocytes Absolute Auto 600 /uL (0-900); Monocytes Percent Auto 6.8 % (3-14); Neutrophils Absolute Auto 5000 /uL (1500-7000); Neutrophils Percent Auto 56.8 % (50-75); Platelet Count 247 X10^3/uL (150-400); Red Blood Cell Count 4.43 X10^6/uL (4.0-5.2); Red Cell Distribution Width 13.4 % (11.6-14.8); White Blood Cell Count 8.8 X10^3/uL (4.5-11.0)
[2021-01-19 11:09] LABS: Alanine Aminotransferase 19 IU/L (<35); Albumin 4.7 g/dL (3.5-5.0); Albumin Globulin Ratio 1.6 (1.0-2.8); Alkaline Phosphatase 62 U/L (38-126); Aspartate Aminotransferase 26 IU/L (14-36); BUN Creatinine Ratio 16.2 (6-22); Bilirubin Total 0.5 mg/dL (0.2-1.3); Blood Urea Nitrogen 11 mg/dL (7-17); Calcium 9.1 mg/dL (8.4-10.2); Carbon Dioxide 25 mmol/L (22-32); Chloride 107 mmol/L (98-107); Estimated Glomerular Filt Rate > 60.0 mL/min (>60); Globulin 2.9 g/dL (1.7-4.1); Glucose 104 mg/dL (70-100); HEMOLYSIS < 15 (0-50); Sodium 138 mmol/L (137-145); Total Protein 7.6 g/dL (6.3-8.2)
[2021-01-19 11:38] LABS: TSH w/ Reflex to FT4 1.44 uIU/mL (0.47-4.68)
== END ==
PROVIDERS: PCP Family Medicine; Referring Provider Family Medicine; Visit Provider Family Medicine
DX: F41.9 Anxiety disorder, unspecified (principal)
CPT/HCPCS: 36415; 80053; 83036; 84443; 85025

== ENCOUNTER 2021-05-06 07:56 | Emergency (ER) | payer OTHER, MEDICAID, SELFPAY ==
[2021-05-06 08:00] VITALS: BP 112/64; PULSE 134; RESP 18; TEMP 39.2; O2SAT 98; BMI 31.3
--- NOTE | 2021-05-06 08:06 | DI.RAD.S_ITS ---
PROCEDURE: XR CHEST 1V INDICATIONS: suspected sepsis TECHNIQUE: One view of the chest was acquired. COMPARISON: None. FINDINGS: Surgical changes and devices: None. Lungs and pleura: Lungs are clear. No pleural effusions or pneumothorax. Mediastinum: Mediastinal contours appear normal. Heart size is normal. Bones and chest wall: No suspicious bony lesions. Overlying soft tissues appear unremarkable. IMPRESSION: No acute pulmonary process. Dictated by: Fadumo Meraz M.D. on 05/06/2021 at 8:49 Approved by: Fadumo Meraz M.D. on 05/06/2021 at 8:49
[2021-05-06 08:34] LABS: COVID19 -Nasal RAPID Negative (Negative)
--- NOTE | 2021-05-06 08:35 | ED.FEVER ---
HPI - Fever General Chief Complaint: Fever Stated Complaint: Fever, neck/back pain Time Seen by Provider: 05/06/21 08:25 Source: patient Mode of arrival: Ambulatory History of Present Illness HPI Narrative: Patient drove herself here. Onset this past Tuesday evening with fever body aches chills and headache. No coughing or dyspnea. Has had nausea. No diarrhea. Patient is not COVID vaccinated. Denies any sick contacts. Related Data Home Medications Medication Instructions Recorded Confirmed prednisone 20 mg tablet 20 mg PO BID 03/27/20 01/19/21 Previous Rx's Medication Instructions Recorded albuterol sulfate 2.5 mg (3 mL) INHALATION Q4H PRN 03/28/19 #75 ml nebulizer accessories #1 each 04/02/19 nebulizer and compressor #1 each 04/02/19 albuterol sulfate 90 mcg/actuation 1 puff INHALATION PRN PRN #18 g 03/31/20 aerosol inhaler budesonide-formoterol HFA 160 1 puff INHALATION DIRECTED 03/31/20 mcg-4.5 mcg/actuation aerosol #10.2 g inhaler dicyclomine 10 mg capsule 10 mg PO BID PRN #30 cap 03/31/20 famotidine 40 mg tablet 40 mg PO BID #60 tab 03/31/20 trazodone 50 mg tablet 25 mg PO DAILY #30 tab 01/19/21 ondansetron 4 mg disintegrating 4 mg PO Q8H PRN #10 tab 05/06/21 tablet Allergies Allergy/AdvReac Type Severity Reaction Status Date / Time latex Allergy Mild rash Verified 01/19/21 09:40 gluten AdvReac Intermediate GI issues Verified 01/19/21 09:40 : lots of abdominal pain omeprazole AdvReac Unknown fatigue,AMS Verified 01/19/21 09:40 ,SOB Review of Systems Review of Systems Narrative: GENERAL: Positive for chills, fatigue, malaise, fever, sweats. HEENT: Denies sinus pain, ear pain, sore throat RESPIRATORY: Denies dyspnea, cough CARDIOVASCULAR: Denies chest pain, palpitations GASTROINTESTINAL: Positive for nausea, vomiting, negative abdominal pain : Denies dysuria, frequency, hematuria MUSCULOSKELETAL: Positive for muscle or bony pain SKIN: Denies rash, skin lesions NEUROLOGIC: Denies weakness, numbness ROS Unobtainable: All systems reviewed & are unremarkable except as noted in HPI and below Patient History Medical History ADHD Anxiety Anxiety Asthma GERD (gastroesophageal reflux disease) Hydrops fetalis in third trimester, antepartum Patient denies significant medical history Post traumatic stress disorder (PTSD) Right knee sprain UTI (urinary tract infection) Vertigo (~2018) Vitiligo Vomiting blood Surgical History Anesthesia H/O wisdom tooth extraction History of section Social History marital status: unmarried,single Smoking Status: Former smoker Smoking Status: Former smoker alcohol intake frequency: holidays/special occasions only Substance Use Type: marijuana Exam Narrative Exam Narrative: GENERAL: in no distress, not toxic not dyspneic HEAD: Normocephalic. EYES: Pupils equal round No scleral icterus. NECK: Trachea midline. Full active range of motion no meningeal signs. CARDIOVASCULAR: Regular rate and rhythm without murmurs RESPIRATORY: Clear to auscultation. Breath sounds equal bilaterally. No wheezes, rales, or rhonchi. GASTROINTESTINAL: Abdomen soft, non-tender BACK: No flank tenderness. NEURO: AOx4. SKIN: Warm and dry PSYCH: Not anxious, is cooperative Initial Vital Signs Initial Vital Signs: Vital Signs Temperature 102.5 F H 05/06/21 08:00 Pulse Rate 134 H 05/06/21 08:00 Respiratory Rate 18 05/06/21 08:00 Blood Pressure 112/64 05/06/21 08:00 Pulse Oximetry 98 05/06/21 08:00 Course Course Course Narrative: No new issues during course of stay Orders Ordered: Discontinued Medications Acetaminophen (Acetaminophen 325 Mg Tablet) 975 mg PO NOW ONE Stop: 05/06/21 08:07 Last Admin: 05/06/21 09:01 Dose: 975 mg Documented by: ARUN Sodium Chloride (Normal Saline 0.9%) 1,000 mls @ 1,000 mls/hr IV BOLUS ONE Stop: 05/06/21 09:05 Last Infusion: 05/06/21 10:43 Dose: 0 mls/hr Documented by: Admin: 05/06/21 09:03 Dose: 1,000 mls/hr Documented by: ARUN Ketorolac Tromethamine (Ketorolac 30 Mg/Ml Vial) 15 mg IV NOW ONE Stop: 05/06/21 08:36 Last Admin: 05/06/21 09:02 Dose: 15 mg Documented by: ARUN Ondansetron HCl (Ondansetron 4 Mg/2 Ml Inj) 4 mg IV NOW ONE Stop: 05/06/21 08:07 Last Admin: 05/06/21 09:03 Dose: 4 mg Documented by: ARUN Reevaluation(s) Reevaluation #1: Patient feels much better. Smiling. Pain has resolved. She desires discharge home. Reviewed results with patient. At this time ruled out many viruses. Return precautions reviewed with her. Time: 11:40 Vital Signs Vital signs: Vital Signs - 8 hr 05/06/21 08:00 05/06/21 09:01 05/06/21 09:26 Temperature 102.5 F H 103 F H Pulse Rate 134 H 107 H Respiratory Rate 18 18 Blood Pressure 112/64 126/71 Pulse Oximetry 98 97 05/06/21 11:34 Temperature 98.7 F Pulse Rate 82 Respiratory Rate 16 Blood Pressure 123/67 Pulse Oximetry 99 MDM - Fever Differential Diagnosis Differential diagnosis: Likely viral infection, influenza and other (COVID/viral infection/UTI) Lab Data Result diagrams: 05/06/21 09:45 05/06/21 09:45 Labs: Lab Results 05/06/21 05/06/21 05/06/21 Range/Units 08:14 09:45 09:45 WBC 9.0 (4.5-11.0) X10^3/uL RBC 4.49 (4.0-5.2) X10^6/uL Hgb 14.0 (12.0-16.0) g/dL Hct 41.2 (36-46) % MCV 91.8 (80-100) fL MCH 31.3 (26-34) PG MCHC 34.1 (30-36) % RDW 15.2 H (11.6-14.8) % Plt Count 261 (150-400) X10^3/uL Neut % (Auto) 84.0 H (50-75) % Lymph % (Auto) 8.9 L (25-40) % Acadia % (Auto) 6.8 (3-14) % Eos % (Auto) 0.0 L (2-4) % Baso % (Auto) 0.3 (0-2) % Neut # (Auto) 7600 H (5762-1894) /uL Lymph # (Auto) 800 L (2125-4515) /uL Acadia # (Auto) 600 (0-900) /uL Eos # (Auto) 0 (0-450) /uL Baso # (Auto) 0 (0-100) /uL Sodium 135 L (137-145) mmol/L Potassium 3.4 (3.4-5.1) mmol/L Chloride 100 (98-107) mmol/L Carbon Dioxide 25 (22-32) mmol/L BUN 9 (7-17) mg/dL Creatinine 0.81 (0.52-1.04) mg/dL Estimated GFR > 60.0 (>60) mL/min BUN/Creatinine Ratio 11.1 (6-22) Glucose 113 H (70-100) mg/dL Calcium 8.8 (8.4-10.2) mg/dL Total Bilirubin 0.6 (0.2-1.3) mg/dL AST 42 H (14-36) IU/L ALT 26 (<35) IU/L Alkaline Phosphatase 57 (38-126) U/L Total Protein 8.0 (6.3-8.2) g/dL Albumin 4.8 (3.5-5.0) g/dL Globulin 3.2 (1.7-4.1) g/dL Albumin/Globulin Ratio 1.5 (1.0-2.8) Triglycerides (35-150) mg/dL Cholesterol (140-199) mg/dL LDL Cholesterol, Calc (<100) mg/dL HDL Cholesterol (40-60) mg/dL Procalcitonin 0.24 (<0.5) ng/mL Chlamy pneumoniae PCR (Not Detect) Adenovirus (PCR) (Not Detect) B. pertussis DNA (PCR) (Not Detecte) B.parapertussis DNA PCR (Not Detecte) Coronavirus OC43 (PCR) (Not Detect) Coronavirus HKU1 (PCR) (Not Detect) Coronavirus 229E (PCR) (Not Detect) SARS-CoV-2 (PCR) Negative (Negative) Coronavirus NL63 (PCR) (Not Detect) Human Metapneumovir PCR (Not Detect) Influenza Type A (PCR) (Not Detect) Influenza Type B (PCR) (Not Detect) M. pneumoniae (PCR) (Not Detect) Parainfluenza 1 (PCR) (Not Detect) Parainfluenza 2 (PCR) (Not Detect) Parainfluenza 3 (PCR) (Not Detect) Parainfluenza 4 (PCR) (Not Detect) RSV (PCR) (Not Detect) Entero/Rhino (PCR) (Not Detect) 05/06/21 05/06/21 Range/Units 09:45 11:33 WBC (4.5-11.0) X10^3/uL RBC (4.0-5.2) X10^6/uL Hgb (12.0-16.0) g/dL Hct (36-46) % MCV (80-100) fL MCH (26-34) PG MCHC (30-36) % RDW (11.6-14.8) % Plt Count (150-400) X10^3/uL Neut % (Auto) (50-75) % Lymph % (Auto) (25-40) % Acadia % (Auto) (3-14) % Eos % (Auto) (2-4) % Baso % (Auto) (0-2) % Neut # (Auto) (0377-2835) /uL Lymph # (Auto) (9035-4889) /uL Acadia # (Auto) (0-900) /uL Eos # (Auto) (0-450) /uL Baso # (Auto) (0-100) /uL Sodium (137-145) mmol/L Potassium (3.4-5.1) mmol/L Chloride (98-107) mmol/L Carbon Dioxide (22-32) mmol/L BUN (7-17) mg/dL Creatinine (0.52-1.04) mg/dL Estimated GFR (>60) mL/min BUN/Creatinine Ratio (6-22) Glucose (70-100) mg/dL Calcium (8.4-10.2) mg/dL Total Bilirubin (0.2-1.3) mg/dL AST (14-36) IU/L ALT (<35) IU/L Alkaline Phosphatase (38-126) U/L Total Protein (6.3-8.2) g/dL Albumin (3.5-5.0) g/dL Globulin (1.7-4.1) g/dL Albumin/Globulin Ratio (1.0-2.8) Triglycerides 126 (35-150) mg/dL Cholesterol 141 (140-199) mg/dL LDL Cholesterol, Calc 70 (<100) mg/dL HDL Cholesterol 46 (40-60) mg/dL Procalcitonin (<0.5) ng/mL Chlamy pneumoniae PCR Not detected (Not Detect) Adenovirus (PCR) Not detected (Not Detect) B. pertussis DNA (PCR) Not detected (Not Detecte) B.parapertussis DNA PCR Not detected (Not Detecte) Coronavirus OC43 (PCR) Not detected (Not Detect) Coronavirus HKU1 (PCR) Not detected (Not Detect) Coronavirus 229E (PCR) Not detected (Not Detect) SARS-CoV-2 (PCR) Not detected (Negative) Coronavirus NL63 (PCR) Not detected (Not Detect) Human Metapneumovir PCR Not detected (Not Detect) Influenza Type A (PCR) Not detected (Not Detect) Influenza Type B (PCR) Not detected (Not Detect) M. pneumoniae (PCR) Not detected (Not Detect) Parainfluenza 1 (PCR) Not detected (Not Detect) Parainfluenza 2 (PCR) Not detected (Not Detect) Parainfluenza 3 (PCR) Not detected (Not Detect) Parainfluenza 4 (PCR) Not detected (Not Detect) RSV (PCR) Not detected (Not Detect) Entero/Rhino (PCR) Not detected (Not Detect) Point of Care Testing Test Results Negative Urine Dip Bedside Urine Glucose Negative Bedside Urine Bilirubin - Negative Bedside Urine Ketone - Negative Urine Specific Ambler 1.015 Bedside Urine Occult Blood +++ Bedside Urine pH 6.2 Bedside Urine Protein ++ 100 Bedside Urine Urobilinogen 0.2 Bedside Urine Nitrite - Negative Bedside Urine Leukocytes - Negative Esterase Imaging Data Chest x-ray: Radiologist's Impression: [address] [address] XRay Report Signed Patient: Rhiannon Linton MR#: [id number] : 1990 Acct:[id number] Age/Sex: 30 / F Date of Service: 05/06/21 Loc: ED Accession Number: [id number] ?? Procedure: XR chest 1V Ordering Provider: Dakota Brewer MD PROCEDURE:? XR CHEST 1V ? INDICATIONS:? suspected sepsis ? TECHNIQUE:? One view of the chest was acquired.? ? COMPARISON:? None. ? FINDINGS:? ? Surgical changes and devices:? None.? ? Lungs and pleura:? Lungs are clear.? No pleural effusions or pneumothorax.? ? Mediastinum:? Mediastinal contours appear normal.? Heart size is normal.? ? Bones and chest wall:? No suspicious bony lesions.? Overlying soft tissues appear unremarkable.? ? IMPRESSION:? No acute pulmonary process. ? ? Dictated by: Fadumo Meraz M.D. on 05/06/2021 at 8:49 ? ? Approved by: Fadumo Meraz M.D. on 05/06/2021 at 8:49 ? MDM Narrative Medical decision making narrative: Appropriate for discharge home. Laboratory studies and exam reassuring. Pain resolved with conservative treatment. Return precautions reviewed with her. Not toxic at discharge Discharge Plan Departure Patient Disposition: Home Clinical Impression: Viral infection Instructions: DI for Viral Upper Respiratory Infection -- Adult, DI for Fever (Symptom) -- Adult Activity Restrictions/Additional Instructions: May continue Tylenol or ibuprofen for pain fever aches and headache. See family doctor in a week for recheck. Call provided primary care referral phone number to establish family doctor. Call [phone] keep well hydrated. Return if worse if any questions or concerns. Prescription for Zofran [facility] Prescriptions: New ondansetron 4 mg tablet,disintegrating 4 mg PO Q8H PRN (Reason: nausea and vomiting) Qty: 10 0RF No Action (DME) nebulizer and compressor Device See Rx Instructions .ROUTE .MEDSUPPLY Qty: 1 0RF Rx Instructions: As directed (DME) nebulizer accessories Kit See Rx Instructions .ROUTE .MEDSUPPLY Qty: 1 0RF Rx Instructions: As directed prednisone 20 mg tablet 20 mg PO BID 0RF famotidine 40 mg tablet 40 mg PO BID Qty: 60 1RF dicyclomine 10 mg capsule 10 mg PO BID PRN (Reason: Stomach cramps) Qty: 30 1RF albuterol sulfate 90 mcg/actuation HFA aerosol inhaler 1 puff Inhalation PRN PRN (Reason: Shortness Of Breath) Qty: 18 1RF budesonide-formoterol 160-4.5 mcg/actuation HFA aerosol inhaler 1 puff Inhalation DIRECTED Qty: 10.2 1RF trazodone 50 mg tablet 25 mg PO DAILY Qty: 30 1RF albuterol sulfate 2.5 mg /3 mL (0.083 %) solution for nebulization 2.5 mg INHALATION Q4H PRN (Reason: shortness of breath or wheezing) Qty: 75 0RF Referrals: Giovanni No DO [Primary Care Provider] -
[2021-05-06 09:01] VITALS: TEMP 39.4
[2021-05-06] MEDS: ACETAMINOPHEN 325 MG TABLET 975 MG PO (09:01)
[2021-05-06] MEDS: KETOROLAC 30 MG/ML VIAL 15 MG IV (09:02)
[2021-05-06] MEDS: SODIUM CHLORIDE 0.9% 1,000 ML 1000 ML IV (09:03)
[2021-05-06] MEDS: ONDANSETRON 4 MG/2 ML INJ IV (09:03)
[2021-05-06 09:26] VITALS: BP 126/71; PULSE 107; RESP 18; O2SAT 97
[2021-05-06 10:11] LABS: Add Manual Diff / Slide Review NO; Basophils Absolute Auto 0 /uL (0-100); Basophils Percent Auto 0.3 % (0-2); Eosinophils Absolute Auto 0 /uL (0-450); Hematocrit 41.2 % (36-46); Lymphocytes Absolute Auto 800 /uL (1100-4500); Lymphocytes Percent Auto 8.9 % (25-40); Mean Corpuscular HGB Conc 34.1 % (30-36); Mean Corpuscular Hemoglobin 31.3 PG (26-34); Mean Corpuscular Volume 91.8 fL (80-100); Monocytes Absolute Auto 600 /uL (0-900); Monocytes Percent Auto 6.8 % (3-14); Neutrophils Absolute Auto 7600 /uL (1500-7000); Platelet Count 261 X10^3/uL (150-400); Red Blood Cell Count 4.49 X10^6/uL (4.0-5.2); Red Cell Distribution Width 15.2 % (11.6-14.8)
[2021-05-06 10:32] LABS: Alanine Aminotransferase 26 IU/L (<35); Albumin 4.8 g/dL (3.5-5.0); Albumin Globulin Ratio 1.5 (1.0-2.8); Alkaline Phosphatase 57 U/L (38-126); Aspartate Aminotransferase 42 IU/L (14-36); BUN Creatinine Ratio 11.1 (6-22); Bilirubin Total 0.6 mg/dL (0.2-1.3); Blood Urea Nitrogen 9 mg/dL (7-17); Calcium 8.8 mg/dL (8.4-10.2); Carbon Dioxide 25 mmol/L (22-32); Chloride 100 mmol/L (98-107); Estimated Glomerular Filt Rate > 60.0 mL/min (>60); Globulin 3.2 g/dL (1.7-4.1); Glucose 113 mg/dL (70-100); HEMOLYSIS < 15 (0-50); Potassium 3.4 mmol/L (3.4-5.1); Sodium 135 mmol/L (137-145)
[2021-05-06 10:48] LABS: Procalcitonin 0.24 ng/mL (<0.5)
[2021-05-06 11:03] LABS: Adenovirus Not Detected (Not Detect); B. parapertussis Not Detected (Not Detecte); Bordetella pertussis Not Detected (Not Detecte); Chlamydophila pneumoniae Not Detected (Not Detect); Coronavirus 229E Not Detected (Not Detect); Coronavirus HKU1 Not Detected (Not Detect); Coronavirus NL 63 Not Detected (Not Detect); Coronavirus OC43 Not Detected (Not Detect); Human Metapneumovirus Not Detected (Not Detect); Human Rhinovirus/Enterovirus Not Detected (Not Detect); Influenza A Not Detected (Not Detect); Influenza B Not Detected (Not Detect); Mycoplasma pneumoniae Not Detected (Not Detect); Parainfluenza Virus 1 Not Detected (Not Detect); Parainfluenza Virus 2 Not Detected (Not Detect); Parainfluenza Virus 3 Not Detected (Not Detect); Parainfluenza Virus 4 Not Detected (Not Detect); Respiratory Syncytial Virus Not Detected (Not Detect); SARS- CoV-2 Not Detected (Not Detecte)
[2021-05-06 11:34] VITALS: BP 123/67; PULSE 82; RESP 16; TEMP 37.1; O2SAT 99
[2021-05-06 11:43] LABS: Cholesterol 141 mg/dL (140-199); HDL Cholesterol 46 mg/dL (40-60); LDL Cholesterol Calculated 70 mg/dL (<100); Triglycerides 126 mg/dL (35-150)
== END 2021-05-06 11:48 | disposition home or self-care (01) ==
PROVIDERS: Emergency Provider Emergency Medicine; PCP Family Medicine
DX: J06.9 Acute upper respiratory infection, unspecified (principal); Z20.822 Contact with and (suspected) exposure to COVID-19; Z87.891 Personal history of nicotine dependence
CPT/HCPCS: 36415; 71045; 80053; 80061; 81003; 81025; 84145; 85025; 87633; 87635; 96361; 96374; 96375; 99284; C9803; J1885; J2405

== ENCOUNTER 2021-09-21 12:21 | Emergency (ER) | payer OTHER, MEDICAID, SELFPAY ==
[2021-09-21 12:27] VITALS: BP 159/96; PULSE 115; O2SAT 99
[2021-09-21 12:30] VITALS: PULSE 101; O2SAT 99
[2021-09-21 12:35] VITALS: BP 159/96; PULSE 106; RESP 18; TEMP 36.9; O2SAT 100; BMI 30.4
[2021-09-21 13:00] VITALS: PULSE 91; O2SAT 100
[2021-09-21 13:30] VITALS: PULSE 98; O2SAT 98
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
[2021-09-21 14:55] VITALS: BP 158/85; PULSE 114; O2SAT 100
[2021-09-21] MEDS: OXYCODONE/ACETAMINOPHEN 5/325 TABLET 1 TAB PO (14:56)
[2021-09-21] MEDS: BACITRACIN OINT 0.9 GM PCKT 1 APPLIC TOP (14:56)
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
== END 2021-09-21 15:57 | disposition home or self-care (01) ==
PROVIDERS: Emergency Provider Student in an Organized Health Care Education/Training Program; PCP Family Medicine
DX: T22.212A Burn of second degree of left forearm, initial encounter (principal); X15.2XXA Contact with hotplate, initial encounter
CPT/HCPCS: 99283

== ENCOUNTER 2023-07-17 08:03 | Emergency (ER) | payer OTHER, MEDICAID, SELFPAY ==
--- NOTE | 2023-07-17 08:16 | ED.EAR ---
HPI - Ear Problem General Chief complaint: Ear Stated complaint: severe ear pain into jaw lightheaded stiff neck Time Seen by Provider: 07/17/23 08:07 History of Present Illness HPI Narrative: 32-year-old female with history of asthma presents with sudden left-sided ear pain that woke her from sleep. Goes up into her face and jaw. States it it causes pain even into her ear. Took ibuprofen prior to arrival with minimal relief. Decreased hearing in her left ear. Denies fevers, recent illnesses, water exposure. Related Data Home Medications Medication Instructions Recorded Confirmed prednisone 20 mg tablet 20 mg PO BID 03/27/20 01/19/21 Previous Rx's Medication Instructions Recorded albuterol sulfate 2.5 mg/3 mL 2.5 mg (3 mL) inhalation Q4H PRN 03/28/19 (0.083 %) solution for nebulization shortness of breath or wheezing #75 mL nebulizer accessories #1 ea 04/02/19 nebulizer and compressor #1 ea 04/02/19 albuterol sulfate 90 mcg/actuation 1 puff inhalation PRN PRN 03/31/20 aerosol inhaler Shortness Of Breath #18 grams budesonide-formoterol HFA 160 1 puff inhalation DIRECTED 03/31/20 mcg-4.5 mcg/actuation aerosol #10.2 grams inhaler dicyclomine 10 mg capsule 10 mg PO BID PRN Stomach cramps 03/31/20 #30 caps famotidine 40 mg tablet 40 mg PO BID #60 tabs 03/31/20 ondansetron 4 mg disintegrating 4 mg PO Q8H PRN nausea and 05/06/21 tablet vomiting #10 tabs paroxetine HCl 20 mg tablet (Paxil) 20 mg PO DAILY #30 tabs 12/25/21 lorazepam 0.5 mg tablet 0.5 mg PO BID PRN anxiety #20 tabs 12/30/21 Allergies Allergy/AdvReac Type Severity Reaction Status Date / Time latex Allergy Mild rash Verified 07/17/23 08:24 gluten AdvReac Intermediate GI issues Verified 07/17/23 08:24 : lots of abdominal pain omeprazole AdvReac Unknown fatigue,AMS Verified 07/17/23 08:24 ,SOB Review of Systems Review of Systems Narrative: Negative except as noted above Patient History Medical History Anxiety Right knee sprain GERD (gastroesophageal reflux disease) Vomiting blood Anxiety UTI (urinary tract infection) Vitiligo Asthma Post traumatic stress disorder (PTSD) ADHD Vertigo (~2018) Patient denies significant medical history Hydrops fetalis in third trimester, antepartum Surgical History H/O wisdom tooth extraction Anesthesia History of section Social History marital status: unmarried,single Smoking Status: Former smoker Smoking Status: Former smoker tobacco type: cigarettes alcohol intake frequency: 3 or more drinks per day Substance Use Type: marijuana Exam Narrative Exam Narrative: Const: Awake, alert, in pain, uncomfortable HEENT: R ear normal, R TM normal. L external long wall mining machine tender with speculum insertion, normal TM. No mastoid tenderness, no auricular protrusion. Pharynx normal, dentition normal, nose normal, PERRL, EOMI Skin: Warm, Dry, intact, no rashes Neuro: AO x3, CN II-XII grossly intact, moves all extremities Initial Vital Signs Initial Vital Signs: Vital Signs Temperature 97.8 F 07/17/23 08:17 Pulse Rate 63 07/17/23 08:17 Respiratory Rate 16 07/17/23 08:17 Blood Pressure 123/75 07/17/23 08:17 Pulse Oximetry 99 07/17/23 08:17 Oxygen Delivery Method Room Air 07/17/23 08:17 Course Orders Ordered: Discontinued Medications Lidocaine HCl (Lidocaine 4% Soln 50 Ml) 20 ml TOP NOW ONE Stop: 07/17/23 08:16 Last Admin: 07/17/23 08:27 Dose: 20 ml Documented By: JUVENCIO Ofloxacin (Ofloxacin 0.3% Oph Prepack) 1 bottle MISC DIRECTED ONE Stop: 07/17/23 08:14 Last Admin: 07/17/23 08:25 Dose: 0.5 ml Documented By: JUVENCIO Vital Signs Vital signs: Vital Signs - 8 hr 07/17/23 08:17 Temperature 97.8 F Pulse Rate 63 Respiratory Rate 16 Blood Pressure 123/75 Pulse Oximetry 99 Oxygen Delivery Method Room Air Medical Decision Making Differential Diagnosis Differential Diagnosis: otitis media, otitis externa, cerumen impaction MDM Narrative Medical decision making narrative: External ear pain concerning for otitis externa. No pain with auricular movement, however insertion of ear speculum into external canal is very painful for the patient. TM normal bilaterally, no dental or pharynx abnormalities. Given lidocaine solution for pain as well as ofloxacin drops. Short course of pain medications sent to pharmacy of choice. Patient counseled to avoid foreign body insertion, water exposure. PCP follow up advised. Discharge Plan Departure Patient Disposition: Home Clinical Impression: Otitis externa Instructions: DI for Otitis Externa Activity Restrictions/Additional Instructions: place 10 drops in your ear once daily for 7 days. Take tylenol and ibuprofen for pain and you may also use the lidocaine solution 2-3 drops no more than 3-4 times daily for pain. Do not place anything other than prescribed medications in your ear. Do not swim or get water in your ear. Follow up with your [facility] physician. Prescriptions: No Action (DME) nebulizer and compressor Device See Rx Instructions .ROUTE .MEDSUPPLY Qty: 1 0RF Rx Instructions: As directed (DME) nebulizer accessories Kit See Rx Instructions .ROUTE .MEDSUPPLY Qty: 1 0RF Rx Instructions: As directed paroxetine HCl [Paxil] 20 mg tablet 20 mg PO DAILY Qty: 30 0RF Rx Instructions: PT NEEDS TO SCHEDULE APPT WITH DR HERRMANN prednisone 20 mg tablet 20 mg PO BID famotidine 40 mg tablet 40 mg PO BID Qty: 60 1RF dicyclomine 10 mg capsule 10 mg PO BID PRN (Reason: Stomach cramps) Qty: 30 1RF albuterol sulfate 90 mcg/actuation HFA aerosol inhaler 1 puff Inhalation PRN PRN (Reason: Shortness Of Breath) Qty: 18 1RF budesonide-formoterol 160-4.5 mcg/actuation HFA aerosol inhaler 1 puff Inhalation DIRECTED Qty: 10.2 1RF lorazepam 0.5 mg tablet 0.5 mg PO BID PRN (Reason: anxiety) Qty: 20 1RF albuterol sulfate 2.5 mg /3 mL (0.083 %) solution for nebulization 2.5 mg INHALATION Q4H PRN (Reason: shortness of breath or wheezing) Qty: 75 0RF ondansetron 4 mg tablet,disintegrating 4 mg PO Q8H PRN (Reason: nausea and vomiting) Qty: 10 0RF Referrals: Giovanni Herrmann DO [Primary Care Provider] - Stand Alone Forms: Patient Portal/API
[2023-07-17 08:17] VITALS: BP 123/75; PULSE 63; RESP 16; TEMP 36.6; O2SAT 99
[2023-07-17] MEDS: OFLOXACIN 0.3% OPHTH PREPACK 1 BOTTLE MISC (08:25)
[2023-07-17] MEDS: LIDOCAINE 4% SOLN 50 ML 20 ML TOP (08:27)
== END 2023-07-17 08:45 | disposition home or self-care (01) ==
PROVIDERS: Emergency Provider Emergency Medicine; PCP Family Medicine
DX: H60.92 Unspecified otitis externa, left ear (principal)
CPT/HCPCS: 99282; 99283